=== PATIENT | female | born 1930 ===

== ENCOUNTER 2016-12-19 09:59 | Observation (INO) | payer MEDICARE, BC ==
[2016-12-18 08:49] VITALS: BMI 18.3
[2016-12-19 10:52] LABS: INR 1.3
[2016-12-19 10:53] LABS: POTASSIUM 3.9 mmol/L (3.6-5.2)
[2016-12-19 10:56] LABS: CALCIUM 8.6 mg/dl (8.6-10.4)
[2016-12-19] MEDS ORDERED: Iodixanol 320 MG/ML 200 ML BOTTLE IV ONE (11:17)
[2016-12-19] MEDS ORDERED: Dexmedetomidine Hydrochloride 100 mcg/ml (2ML) ONE ×2 (11:39→11:47)
[2016-12-19] MEDS ORDERED: Midazolam 2 MG/2 ML VIAL ONE ×2 (11:47)
[2016-12-19] MEDS ORDERED: Lidocaine 2% Inj (20ml) ONE (11:53)
--- NOTE | 2016-12-19 13:00 | RAD ---
HISTORY: PRE OP ANGIOGRAM WITH ANESTHESIA 12/19/16 COMPARISON: 02/09/2016. TECHNIQUE: Chest PA and lateral FINDINGS: LUNGS: Right lower lobe infiltrates. Questionable right lower lobe mass. Similar findings identified on the prior study 02/09/2016. PLEURA: Right pleural effusion, chronic finding. CARDIOVASCULAR: Cardiomegaly. No evidence of acute, significant cardiovascular disease. Venous access catheter in stable, satisfactory position. OSSEOUS STRUCTURES: No significant abnormalities. VISUALIZED UPPER ABDOMEN: Normal. OTHER FINDINGS: None. IMPRESSION: No significant interval change compared to the prior examination(s).
[2016-12-19] MEDS ORDERED: ePHEDrine 50 mg/ml Inj ONE (13:51)
--- NOTE | 2016-12-19 15:04 | PCM.SURG1 ---
Surgeon's Initial Post Op Note - Surgeon's Notes Surgeon: magy Oil Well Perforator Operator: 0 Type of Anesthesia: IV Sedation Anesthesia Administered By: tomas Pre-Operative Diagnosis: gamgrene right foot Operative Findings: severe tibial disease bilaterally. right posterior tibial occluded proximally. anterior tibial multiple stenoses. peroneal not seen. no named vessel in foot on either side. left PT only vessel seen of tibial vessels Post-Operative Diagnosis: same Operation Performed: aortofemoral angiogram vis left groin. selective catherization of right femoral artery. balloon angioplasty to anterior tibial and posterior tibial. EDI 3x33 to proximal Tibial peroneal/ post tibial trunk. perclose left groin Specimen/Specimens Removed: 0 Estimated Blood Loss: EBL {In ML}: 25 Date of Surgery/Procedure: 12/19/16 Time of Surgery/Procedure: 15:07
--- NOTE | 2016-12-19 15:50 | VAS ---
DATE: 12/19/2016 PREOPERATIVE DIAGNOSIS: Gangrene of right foot/both feet. PROCEDURE CARRIED OUT: Aortofemoral angiogram via left groin with selective catheterization of right popliteal artery, balloon angioplasty of anterior tibial and posterior tibial artery, drug-eluting s tent to the proximal portion of the tibioperoneal trunk, a 3 x 33 stent. SURGEON: Rao Clark MD. FACETOR: None. ANESTHESIOLOGIST: INDICATIONS: The patient is an 86-year-old woman with severe rest pain and gangrene of the great toe , dependent rubor, severe on the left foot. OPERATIVE FINDINGS: There were technical problems related to machinery at the initiation of the proc edure with the main C-arm was unable to be used. Because of this, we had to import the C-arm from e operating room to carry out the angiogram this way. This occurred after the initial puncture. At this point, it was inappropriate to abandon the procedure. FINDINGS: The visualized portion of the aorta and iliac arteries were free of significant occlusive disease. Both profunda, common femoral and the proximal portion of the superficial femoral arteries and popliteal arteries bilaterally are free of significant occlusive disease. On the right side, the re was severe disease of the tibioperoneal trunk with reconstitution of a segment of the posterior ti bial artery distally, but no name vessel going into the foot. The anterior tibial was occluded and s tenotic in multiple segments. The peroneal was not visualized on the right side. On the left side, it appeared that the posterior tibial artery was the major vessel going into the foot. The other ves sels were not visualized. In neither foot did we see good visualization of the pedal vessels, despite concentrated injections l ooking for this. Subsequent to the performance of diagnostic arteriogram, a stiff-angled guidewire was advanced over t he aortic bifurcation. A 7-[place]er sheath positioned in the proximal portion of the superficial femor al artery. We had difficulty advancing the Glidewire due to the patient's anatomy, but we were able to securely place and position in the proximal to mid portion of the superficial femoral artery with the use of an Amplatz wire, etc. At this point, we took multiple overlapping films and we were able to cross anterior into the posterior tibial artery down to the level of the ankle. We then deployed a 2 x 2.5 long balloon with excellent cosmetic results, but we were unable to get into one of the [facility] ed vessels, though there were no named vessels in the foot, we were unable to reconstitute a pedal ar ch in the foot. We then approached the anterior tibial artery and similarly we were able to cross thi s with the use of a variety of wires and devices and after we had done that, we then took subsequent films and it was seen that the proximal portion of the tibioperoneal trunk where we had ballooned thi s initially had restenosed. Because of this, we deployed a 3 x 33 drug-eluting stent in this locatio n with excellent cosmetic results. At this point, we had excellent flow, we had brisk flow. We did not have visualization, however, of any named vessel in the foot and then we subsequently deployed a Perclose device in the left groin. OPERATION CARRIED OUT: Aortofemoral angiogram with selective catheterization of right femoral artery , balloon angioplasty of the anterior tibial and posterior tibial arteries, drug-eluting stent to the proximal portion of the tibioperoneal trunk, a 3 x 33 stent, Perclose closure left groin. Rao Clark Jr., MD cc:Denis Currie MD; Tam Deutsch DPM 56 TT: 12/19/2016 15:49:34 Confirmation # [id number] Dictation # [id number] prema
[2016-12-19] MEDS ORDERED: Oxycodone/Acetaminophen 5/325 mg Tab PO PRN (22:16)
--- NOTE | 2016-12-20 07:20 | CON ---
DATE: 12/19/2016 REQUESTED BY: Dr. Clark I am requested to see this 86-year-old [place] female known to us for several years, who underwent angioplasty with stent deployment in the right lower extremity due in impending gangrene in the right great toe. Initially, I saw this lady several weeks ago for followup, at which point she was complaining of some pain in the right great toe, the tip, and I advised the son who presents to the office periodically, to take her to see Dr. Deutsch for podiatry care. Subsequently after his evaluation, he referred her to Dr. Clark for vascular evaluation since Dr. Clark knew her from a previous encounter for AV shunt placed in the left arm. This triggered a subsequent event that was carefully evaluated by Dr. Clark and Dr. Deutsch, and after which she was scheduled to undergo today this iliofemoral angiogram with the deployment of the drug-eluting stent in the tibial perineal trunk. At this point in time she is resting comfortably in bed. She is awake and knows me, she was laughing. We talked about Ambien, etc. with the son, Lucio, at the bedside. Vital signs are stable. She appears in no distress whatsoever. However, both feet are kind of cold, which is the main problem because she had severe peripheral vascular disease, and we are trying to prevent any loss of limb. PAST MEDICAL HISTORY: Includes end-stage renal disease now for several years. She is under the care of Dr. Novak in [place], and she will probably need to be dialyzed here tomorrow. She goes to dialysis Mondays, Wednesdays, and Fridays. She also suffers from hypertensive heart disease, diabetes mellitus, congestive heart failure, peripheral vascular disease as mentioned above, and she had a stroke. Presently, in addition to the left AV shunt done by Dr. Clark, which is working, she also has a temporary inserted dialysis catheter in the right infraclavicular area. She has been taking multiple medications at home, however, recently they were stopped, which included amlodipine as well as losartan, because her blood pressure was well under control. She takes multiple medications for the chronic renal disease, which has been under good control. REVIEW OF SYSTEMS: She does not have any significant chest discomfort at rest, though, doing slightly walking in the house which is very limited as it obviously is for her chronic peripheral vascular disease, etc., etc. No nausea , vomiting, or diarrhea. She has been actually walking around with the use of a walker, etc. and doing some housework. They have sjsqlz-osj-qjfaw homemakers, except for weekends when the daughter from the [place] comes. Physical exam reveals an elderly oriental female, sleepy due to anesthesia, however, easily arousable and able to talk in short sentences. VITAL SIGNS: Totally stable at this point, with a blood pressure about 138/55, pulse rate is about 70 per minute, temperature is normal, O2 saturation in room air is 96. Main problem is that in both feet are kind of cold. They are getting pulse with the Doppler, but we are watching this situation very, very closely. No pain. HEAD, EARS, EYES, NOSE, AND THROAT: Unremarkable for age. There is a temporary hemodialysis catheter in the right infraclavicular area. LUNG FIELD: Difficult to auscultate because she is in bed right now and we cannot move her well, but anterior chest remains clear. NEUROLOGICAL EXAMINATION: Jugular veins are normal. Carotids are grossly normal. Heart sounds normal in intensity and regular. Systolic murmur which is chronic. ABDOMEN: Scaphoid. No gross organomegaly. CENTRAL NERVOUS SYSTEM EXAMINATION: She reacts appropriately, knows me well etc , etc. No focal deficit. Some tests done on preadmission testing were in acceptable range for her chronic condition. The basic metabolic profile looks quite well controlled, with hemodialysis. ASSESSMENT: Cerebrovascular accident, arteriosclerotic cardiovascular disease, peripheral vascular disease, diabetes, hypertension, chronic heart failure, systolic and diastolic, however controlled at the present time. PLAN: Will continue close surveillance. Some of her medications will be continued in the usual fashion. Will discuss the situation with Dr. Clark, perhaps, to see if it would be difficult for her to go home tomorrow if stable Perhaps she could have dialysis before going home. Denis Currie MD cc: Tam Deutsch DPM; Rao Clark Jr., MD 68 TT: 12/19/2016 20:32:20 Confirmation # [id number] Dictation # [id number] jn MTDD
--- NOTE | 2016-12-20 10:29 | CON ---
DATE: 12/20/2016 At the request of Dr. Clark, this is an 86-year-old [place] female. She was seen 2 weeks prior in my office with what appeared to be bilateral forefoot ischemia. The patient is a known dialysis pat ient. The patient was referred to Dr. Clark for vascular evaluation. Yesterday, Dr. Clark performed revascularization attempt on the right lower extremity. The right lower extremity, at this time, is warmer. Forefoot warmth is better. The patient still has progress payal gangrene of the right great toe. The patient will be discharged today. Followup in my office in 1 week. Local care was explained to the son. Pain management will also be suggested due to the ischemia of the right hallux. Potential amputation of the right hallux is a possibility in the near future. We will be following up at the [facility] this patient in the week coming. Tam Deutsch DPM cc: [id number] TT: 12/20/2016 10:28:03 Confirmation # [id number] Dictation # [id number] paula
[2016-12-20 11:33] LABS: BASO # 0.1 K/uL (0.0-0.2); BASO % 0.8 % (0.0-2.0); EOS % 0.6 % (0.0-4.0); LYMPH # 1.2 K/uL (1.0-4.3); MEAN CORPUSCULAR HEMOGLOBIN 34.8 pg (27.0-31.0); MEAN CORPUSCULAR HGB CONC 32.8 g/dL (33.0-37.0); MEAN PLATELET VOLUME 9.4 fL (7.2-11.7); MONO % 15.7 % (0.0-10.0); NRBC % 0.2 % (0.0-2.0); RED CELL DISTRIBUTION WIDTH 17.2 % (11.5-14.5); WHITE BLOOD COUNT 6.5 K/uL (4.8-10.8)
[2016-12-20 11:36] LABS: POTASSIUM 4.1 mmol/L (3.6-5.2)
[2016-12-20 11:38] LABS: ALB/GLOB RATIO 0.8 (1.0-2.1); BILIRUBIN,TOTAL 0.8 mg/dL (0.2-1.3); TOTAL PROTEIN 6.7 g/dL (6.3-8.3)
[2016-12-20 11:39] LABS: CALCIUM 8.1 mg/dl (8.6-10.4)
[2016-12-20 11:41] LABS: MEAN CELL VOLUME 106.2 fL (81.0-99.0)
[2016-12-20 12:23] VITALS: RESP 16
--- NOTE | 2016-12-20 12:39 | CP.PCM.PN ---
Subjective - Date & Time of Evaluation Date of Evaluation: 12/20/16 Time of Evaluation: 12:38 - Subjective Subjective: dw leg warm with excellent dopplers dc home plavix fu 1 week Objective - Vital Signs/Intake and Output Vital Signs (last 24 hours): Temp Pulse Resp BP Pulse Ox 98.9 F 80 16 117/58 L 96 12/20/16 11:15 12/20/16 11:15 12/20/16 11:15 12/20/16 12:00 12/20/16 11:15 - Medications Medications: Current Medications Amlodipine Besylate (Norvasc) 5 mg PO DAILY [facility] Last Admin: 12/20/16 10:17 Dose: 5 mg Calcium Acetate (Phoslo) 667 mg PO TIDCC [facility] Last Admin: 12/20/16 08:00 Dose: 667 mg Cinacalcet (Sensipar) 30 mg PO DAILY [facility] Last Admin: 12/20/16 10:17 Dose: 30 mg Clopidogrel Bisulfate (Plavix) 75 mg PO DAILY [facility] Last Admin: 12/20/16 10:16 Dose: 75 mg Losartan Potassium (Cozaar) 100 mg PO DAILY [facility] Last Admin: 12/20/16 10:17 Dose: 100 mg Oxycodone/Acetaminophen (Percocet 5/325 Mg Tab) 1 tab PO Q6H PRN PRN Reason: Pain, moderate (4-7) Stop: 12/22/16 22:17 Last Admin: 12/20/16 10:21 Dose: 1 tab Zolpidem Tartrate (Ambien) 5 mg PO HS [facility] Last Admin: 12/19/16 22:15 Dose: Not Given - Labs Labs: 12/20/16 11:23 12/20/16 11:23 PT 14.9 SECONDS (9.7-12.2) H 12/19/16 10:38 INR 1.3 12/19/16 10:38 APTT 37 SECONDS (21-34) H 12/19/16 10:38
[2016-12-20 14:56] VITALS: BP 105/56; PULSE 68; TEMP 98; O2SAT 97
--- NOTE | 2016-12-20 15:45 | PN ---
DATE: 12/20/2016 ROOM: 662 A Went to her room, but she was in dialysis. However, then her son, Rubi, which I know for years, was w aiting for her. He told me that she appeared very happy this morning and spirits were good and she i s undergoing dialysis and going home later on this afternoon or this evening. I called earlier this morning and spoke with Dr. Clark to touch bases with him. He actually was t here in the hospital and told me that the right leg appeared to be much, much better and warmer and t he foot was warm, the right foot. As well, actually the left foot was also a little warmer than yest erday. The right leg was the one that Dr. Clark performed the angioplasty and stent deployment. I went to see the patient in the dialysis, actually had just completed and she was in very good spiri ts, laughing, saw me. We talked about it a little bit. She speaks only Ethiopian but understands Engl marion very, very well and I told her that she was going home this afternoon, etc. and she was very happ y. No complaints were offered. There was no obvious nausea or vomiting or diarrhea and when I asked her about any shortness of breat h or chest pain, she denied it. REVIEW OF SYSTEMS: Otherwise negative. PHYSICAL EXAMINATION: GENERAL: Alert, oriented, in no distress whatsoever. She appeared quite happy. VITAL SIGNS: Totally stable. Blood pressure ranging from 105-114 systolic. Respiratory rate unrema rkable. She is afebrile at 98 degrees Fahrenheit orally. The respiratory rate is normal, unlabored at 16 per minute. HEAD, EARS, NOSE AND THROAT: Remains unremarkable for her age. LUNGS: Anterior lung perry are clear. I was unable to carefully and well to the posterior chest. HEART: Sounds normal in intensity and regular with systolic murmur as usual. ABDOMEN: No localized tenderness. CENTRAL NERVOUS SYSTEM: Alert, oriented, no deficit. LOWER EXTREMITIES: The right leg, right foot is warm, good normal temperature as compared to yesterd ay, it was quite cold and the color actually is even better. The left foot even though nothing was d one to the left leg in terms of intervention, the foot is also a little warmer. The AV shunt that she has in the left arm has a big ecchymotic hematoma there. This was not used. A ctually, I was there in the dialysis unit and the nurses told me that they did not use the shunt. Th tasia used the dialysis catheter that she has in the right infraclavicular area and that catheter is miguel y well kept and very, very clean. I had a long conversation with her son, Rubi, and the patient does not like to have dialysis via the A V shunt because it hurts, it has hematomas, etc. and she prefers the dialysis catheter to be used. W e had a big long conversation that this catheter cannot remain there forever and ever. ASSESSMENT: Cardiologically stable. Going home later on this evening or later on this afternoon. I had a long conversation with her son, Rubi, he is going to bring her to the office next week before he goes on a trip to [facility] for about a week or 10 days. I mentioned that the x-ray again showed ginger e effusion in the right hemithorax, right pleural effusion and nothing has changed since previous x-r ay of 6, 7, 8 months ago, but we would like to follow this up and most likely it is related to end-st age renal disease, heart failure, etc. but we need to see her next week. He understood that and he i s bringing his mother next week to the office. In the meantime, to be closely followed up by Dr. Clark and Dr. Deutsch. As a matter of fact, the son mentioned Dr. Deutsch was here today to see her and he was encouraged by what he saw. Denis Currie MD cc: [id number] TT: 12/20/2016 15:45:08 Confirmation # [id number] Dictation # [id number] sn
--- NOTE | 2016-12-20 18:47 | PCM.HF ---
Heart Failure Core Measure - Heart Failure Left Ventricular Function to be assessed after discharge: Yes MARIE Inhibitor Prescribed: No Contraindication/Reason for not providing: on arb Beta-Gary Prescribed: None Contraindication/Reason for not providing: LOW HR Angiotensin II Receptor Gary Prescribed: Yes AnticoagulationTherapy for Atrial Fibrillation/Atrialflutter: No Contraindication/Reason for not providing: no afib Aldosterone Antagonist Prescribed: No Contraindication/Reason for not providing: ckd Hydralazine Nitrate Prescribed: No Contraindication/Reason for not providing: ckd Implantable Cardioverter Defibrillator Therapy: No Contraindication/Reason for not providing: WILL BE EVALUATED BY CARDIOLOGY Cardiac Resynchronization Therapy Prescribed: No Contraindication/Reason for not providing: WILL BE EVALUATED BY CARDIOLOGY - Follow up Will be discharged to: Home Follow Up Date (must be within 7 days from discharge): 12/22/16 Follow Up Time: 09:00
--- NOTE | 2016-12-20 23:31 | CP.PCM.CON ---
History of Present Illness - History of Present Illness History of Present Illness: REASONS FOR CONSULT : ESRD IN NEED FOR HD NOW S/P PERIPHERAL ANGIOGRAM / PLASTY DONE BY DR STANLEY ,, NEEDS HD POST OP PT IS AN 86 YOF WHO WAS ADMITTED BY DR STANLEY FOR SEVER PAD .. RECIEVED PERIPHERAL ANGIOGRAM AND ANGIOPLASTY SEEN ON RENAL F/U AND HD .. FOR D/C POST HD PT IS ESRD ON HD W .. PT IS DR MCGUIRE'S WHOM I AM COVERING ALL EMR REVIEWED .. LABS REVIEWED HD ORDERS GIVEN TO HD RN AND D/W HER Past Patient History - Infectious Disease Hx of Infectious Diseases: None - Tetanus Immunizations Tetanus Immunization: Unknown - Past Medical History & Family History Past Medical History?: Yes - Past Social History Smoking Status: Never Smoked - CARDIAC Hx Cardiac Disorders: Yes Hx Hypercholesterolemia: Yes Hx Hypertension: Yes Hx Peripheral Edema: Yes Hx Peripheral Vascular Disease: Yes - PULMONARY Hx Respiratory Disorders: Yes Hx Sleep Apnea: Yes Hx Tuberculosis: No - NEUROLOGICAL Hx Neurological Disorder: Yes HX Cerebrovascular Accident: Yes ("MILD STROKE 1998") Hx Transient Ischemic Attacks (TIA): Yes (in the 1970s) - HEENT Hx HEENT Problems: Yes Hx Blind: No Hx Cataracts: Yes 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.) - RENAL Hx Chronic Kidney Disease: Yes Hx Dialysis: Yes Type of Dialysis Access: LEFT ARM FISTULA Date of Last Dialysis Treatment: 12/18/16 Hx Renal Failure: Yes - ENDOCRINE/METABOLIC Hx Endocrine Disorders: No Hx Diabetes Mellitus Type 2: No (NO LONGER) - HEMATOLOGICAL/ONCOLOGICAL Hx Blood Disorders: Yes Hx Anemia: Yes Hx Blood Transfusions: Yes Hx Blood Transfusion Reaction: No - INTEGUMENTARY Hx Dermatological Problems: No - MUSCULOSKELETAL/RHEUMATOLOGICAL Hx Musculoskeletal Disorders: Yes Hx Degenerative Joint Disease: Yes Hx Falls: Yes - GASTROINTESTINAL Hx Gastrointestinal Disorders: Yes (HX INTESTINAL OBSTUCTION NO SX) Hx Bowel Surgery: Yes (INTESTINAL OBSTRUCTION) - GENITOURINARY/GYNECOLOGICAL Hx Genitourinary Disorders: No - PSYCHIATRIC Hx Psychophysiologic Disorder: No Hx Substance Use: No - SURGICAL HISTORY Hx Surgeries: Yes Hx Cataract Extraction: Yes Hx Hysterectomy: Yes Hx Open Reduction Internal Fixation: Yes (R HIP) Hx Orthopedic Surgery: Yes (Right hip replacement) Hx Vascular Access Device: Yes (for dialysis) Other/Comment: PERMA CATH RIGHT - ANESTHESIA Hx Anesthesia: Yes Hx Anesthesia Reactions: No Hx Malignant Hyperthermia: No Has any member of the family had a problem w/ anesthesia?: No Meds Allergies/Adverse Reactions: Allergies Allergy/AdvReac Type Severity Reaction Status Date / Time No Known Allergies Allergy Verified 12/30/15 16:25 Results - Vital Signs Recent Vital Signs: Last Vital Signs Temp 98 F 12/20/16 14:15 Pulse 68 12/20/16 14:15 Resp 16 12/20/16 14:15 BP 105/56 L 12/20/16 14:15 Pulse Ox 97 12/20/16 14:15 - Labs Result Diagrams: 12/20/16 11:23 12/20/16 11:23 Labs: Laboratory Results - last 24 hr 12/20/16 11:23 WBC 6.5 RBC 2.73 L Hgb 9.5 L Hct 29.0 L MCV 106.2 H D MCH 34.8 H MCHC 32.8 L RDW 17.2 H Plt Count 126 L MPV 9.4 Neut % (Auto) 64.9 Lymph % (Auto) 18.0 L [place] % (Auto) 15.7 H Eos % (Auto) 0.6 Baso % (Auto) 0.8 Neut # 4.2 Lymph # 1.2 [place] # 1.0 H Eos # 0.0 Baso # 0.1 Sodium 135 Potassium 4.1 Chloride 92 L Carbon Dioxide 27 Anion Gap 20 BUN 37 H Creatinine 4.6 H Est GFR ( Amer) 11 Est GFR (Non-Af Amer) 9 Random Glucose 76 Calcium 8.1 L Total Bilirubin 0.8 AST 26 ALT 20 Alkaline Phosphatase 102 Total Protein 6.7 Albumin 3.0 L Globulin 3.7 Albumin/Globulin Ratio 0.8 L Assessment & Plan - Date & Time Date: 12/20/16 Time: 13:00
--- NOTE | 2016-12-22 16:15 | RAD ---
PROCEDURE: Fluoroscopy up to 1 hr. HISTORY: ANGIOGRAM LOW EXT COMPARISON: None TECHNIQUE: Standard protocol for this study/examination. FINDINGS: Total fluoroscopic time (continuous mode) utilized during the procedure: 24.6 minutes fluoroscopy time IMPRESSION: Less than 1 hr fluoroscopic time utilized during performance of the procedure.
== END 2016-12-20 15:40 | disposition home or self-care (01) ==
LOC: C.SPRAD 09:59 → C.9S 15:23 → C.6T 17:23
PROVIDERS: ADMIT Surgery Vascular Surgery; ATTEND Surgery Vascular Surgery
DX: E11.52 Type 2 diabetes mellitus with diabetic peripheral angiopathy with gangrene (principal); Z79.4 Long term (current) use of insulin; E11.22 Type 2 diabetes mellitus with diabetic chronic kidney disease; E78.00 Pure hypercholesterolemia, unspecified; H54.42 Blindness, left eye, normal vision right eye; I13.2 Hypertensive heart and chronic kidney disease with heart failure and with stage 5 chronic kidney disease, or end stage renal disease; N18.6 End stage renal disease; I50.42 Chronic combined systolic (congestive) and diastolic (congestive) heart failure; Z99.2 Dependence on renal dialysis; Z68.1 Body mass index [BMI] 19.9 or less, adult; I25.10 Atherosclerotic heart disease of native coronary artery without angina pectoris; Z86.73 Personal history of transient ischemic attack (TIA), and cerebral infarction without residual deficits; G47.30 Sleep apnea, unspecified
CPT/HCPCS: 36247; 36415; 37228; 37231; 71020; 75625; 75716; 75774; 80048; 80053; 85025; 85610; 85730; C1725; C1760; C1769; C1874; C1887; C1894; G0257; G0378; J1644; J2250; J3010; Q9966

== ENCOUNTER 2017-02-21 16:37 | Inpatient (IN) | payer MEDICARE, BC ==
[2017-02-21 16:38] VITALS: BMI 18.3
[2017-02-21] MEDS ORDERED: HYDROmorphone 1 mg/ml ISec ONE (18:03)
[2017-02-21] MEDS ORDERED: HYDROmorphone 1 mg/ml ISec IVP STA (18:12)
--- NOTE | 2017-02-21 19:19 | C.PDOC ---
History Of Present Illness 86 year old female was brought to the ED by her family after seeing Dr. Kamara today, for evaluation of possible cellulitis as per Dr. Kamara's suggestion. She presents with severe swelling, pain, and redness to both legs from the knees down. Patient's records show an extensive past medical history that includes HTN , anemia, peripheral edema, hyprecholesterolemia, diabetes, end stage renal disease, chronic kidney disease, and sleep apnea. 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 Patient's condition is being followed by multiple vascular surgeons, experimental psychologist, and her PMD Dr. Currie. She denies any fever or chills. Time Seen by Provider: 02/21/17 17:35 Chief Complaint (Nursing): Abnormal Skin Integrity History Per: Patient, Family History/Exam Limitations: no limitations Onset/Duration Of Symptoms: Other (long standing peripheral vascular disease ) Current Symptoms Are (Timing): Still Present Quality Of Symptoms: Painful Recent travel outside of the [place]: No Additional History Per: Prior Records Past Medical History Reviewed: Historical Data, Nursing Documentation, Vital Signs Vital Signs: Last Vital Signs Temp 98.5 F 02/21/17 16:43 Pulse 67 02/21/17 19:23 Resp 14 02/21/17 19:23 BP 156/65 H 02/21/17 19:23 Pulse Ox 94 L 02/21/17 19:49 - Medical History PMH: Anemia, Diabetes, HTN, Hypercholesterolemia, Peripheral Edema, End Stage Renal Disease, Chronic Kidney Disease, Sleep Apnea, TIA (in the 1970s) - [facility] Procedures FLUOROSCOPY OF SUP VENA CAVA USING L OSM CONTRAST, GUIDANCE (06/17/15) INFLUENZA VACCINATION (07/30/13) INSERTION OF INFUSION DEV INTO SUP VENA CAVA, PERC APPROACH (06/17/15) PACKED CELL TRANSFUSION (07/30/13) PARTIAL HIP REPLACEMENT (07/30/13) PERFORMANCE OF URINARY FILTRATION, MULTIPLE (06/17/15) REMOVAL OF INFUSION DEVICE FROM UPPER VEIN, PERC APPROACH (06/17/15) TRANSFUSE NONAUT RED BLOOD CELLS IN PERIPH VEIN, PERC (06/17/15) ULTRASONOGRAPHY OF SUPERIOR VENA CAVA, GUIDANCE (06/17/15) VACCINATION NEC (07/30/13) Family History: States: Unknown Family Hx - Social History Hx Tobacco Use: No Hx Alcohol Use: No Hx Substance Use: No - Immunization History Hx Tetanus Toxoid Vaccination: (unk) Hx Influenza Vaccination: Yes Hx Pneumococcal Vaccination: Yes Review Of Systems Constitutional: Negative for: Fever, Chills, Sweats Cardiovascular: Negative for: Chest Pain, Palpitations Respiratory: Negative for: Cough, Shortness of Breath Gastrointestinal: Negative for: Nausea, Vomiting, Abdominal Pain, Diarrhea Musculoskeletal: Positive for: Leg Pain (long standing peripheral vascular disease with arterial occlusions and gangrene of both great toes ) Skin: Positive for: Other (severe swelling, pain, and redness to both legs from the knee down ) Neurological: Negative for: Headache Physical Exam - Physical Exam Appears: Chronically Ill Skin: Warm, Dry, Other (toes are cool; severe redness of both legs from the knees down ) Head: Atraumatic Oral Mucosa: Moist Neck: Supple Chest: Symmetrical, No Deformity Cardiovascular: Rhythm Regular Respiratory: No Rales, No Rhonchi, No Stridor, No Wheezing Extremity: No Normal ROM (decreased ROM due to pain worsening when legs elevated ), Capillary Refill (delayed capillary refill in both legs ), Swelling (severe swelling to both legs from the knees down due to vascular insuffiency ), Other ( legs beginning to weep, dry black gangrene in both great toes.) Pulses: Left Dorsalis Pedis: Absent, Right Dorsalis Pedis: Absent Neurological/Psych: Oriented x3 Gait: Other (patient having difficulty walking) ED Course And Treatment O2 Sat by Pulse Oximetry: 94 - Physician Consult Information Time Consulting Physician Contacted: 17:00 (Dr. Currie came to the ED and spoke to the patient and her family and stayed for approximately 2 and a half hours to discuss with the family. ) Physician Contacted: Denis Currie Outcome Of Conversation: Patient's PMD, Dr. Currie, determined symptoms are not an acute problem. Patient is extremely chronic and has an appointment in March to see Vascular Surgeon at [facility] therefore debating admission or waiting for the appointment. After consulting with the family as well, it was decided to admit the patient for IV antibiotics, vascular surgery and ID consultation. Disposition - Disposition Disposition: HOSPITALIZED Disposition Time: 19:53 Condition: STABLE - POA Present On Arrival: None - Clinical Impression Clinical Impression: ESRD (end stage renal disease), Arterial vascular disease, Bilateral cellulitis of lower leg, Toe gangrene - Scribe Statement The provider has reviewed the documentation as recorded by the Scribtheresa Kang All medical record entries made by the Jenniferibtheresa were at my direction and personally dictated by me. I have reviewed the chart and agree that the record accurately reflects my personal performance of the history, physical exam, medical decision making, and the department course for this patient. I have also personally directed, reviewed, and agree with the discharge instructions and disposition.
[2017-02-21] MEDS ORDERED: Vancomycin 1 GM 1 GM/250 ML BAG IV ONE (20:00)
[2017-02-21 20:12] LABS: BASO % 0.2 % (0.0-2.0); EOS % 0.3 % (0.0-4.0); HEMATOCRIT 31.1 % (34.0-47.0); LYMPH # 1.4 K/uL (1.0-4.3); LYMPH % 8.5 % (20.0-40.0); MEAN CORPUSCULAR HGB CONC 31.4 g/dL (33.0-37.0); MONO # 1.1 K/uL (0.0-0.8); MONO % 6.8 % (0.0-10.0); NRBC % 0.1 % (0.0-2.0); PLATELET COUNT 217 K/uL (130-400); RED CELL DISTRIBUTION WIDTH 18.6 % (11.5-14.5)
[2017-02-21 20:15] LABS: MEAN CELL VOLUME 111.4 fL (81.0-99.0)
[2017-02-21 20:39] LABS: POTASSIUM 5.1 mmol/L (3.6-5.2)
[2017-02-21 20:42] LABS: ALB/GLOB RATIO 0.7 (1.0-2.1); CALCIUM 8.4 mg/dl (8.6-10.4); TOTAL PROTEIN 7.1 g/dL (6.3-8.3)
[2017-02-21 21:04] LABS: BASOPHIL 1 % (0-2); NEUTROPHIL 81 % (50-75); TOTAL CELLS COUNTED 100
[2017-02-21] MEDS ORDERED: Vancomycin 1 GM 1 GM/250 ML BAG IVPB ONE (21:22)
[2017-02-22] MEDS: HYDROmorphone 1 mg/ml ISec IVP PRN ×2 (00:50→11:23)
--- NOTE | 2017-02-22 06:36 | HP ---
CHIEF COMPLAINT: Pain, redness and gangrene in both feet. HISTORY OF PRESENT ILLNESS: The patient is an 86-year-old on paper, however, she is 89 for real by . [place] female well known to us for many years, suffering from gangrene of both feet, the great toes for several weeks to months , who has been under the care of the vascular surgeon and company laundry worker, etc. for quite some time though had refused and underwent stent deployment by Dr. Clark several months back in the right leg to try to improve the circulation to the right foot. In spite of this, the big toe has continued to deteriorate and had become gangrenous for several actually almost a month and a half. The family decided to get a second opinion in [place] and she visited and is under the care of a company laundry worker there as well as vascular surgeon and had been cleaning and dressing the right foot as well as the left great toe that became also gangrenous several weeks back. I have been in contact with the family, Maribel, as well as the son, Lucio and there is a daughter in [place], [facility], who comes periodically. The daughter from [place] came over the weekend and took her today to go to [facility] because of increasing pain. She called the hospital to go to the wound care center and was seen there by Dr. Kamara, the company laundry worker, who immediately suggested to be admitted because of severe cellulitis and gangrene. This was the first time I believe Dr. Kamara had seen her. She had been under the care before of Dr. Willi Mckenna and after that a company laundry worker in [facility]. She came to the Emergency Room and she was immediately evaluated. I was totally unaware of these new changes since the daughter and son here wanted to prevent any kind of hospitalization, etc. that the mother has refused any surgery after the deployment of stents to the right leg by Dr. Clark. I spent many hours in the Emergency Room talking to Maribel as well as down on the phone with the other daughter who is a dentist in [place] and final decision was to admit her for antibiotics for the cellulitis but the main problem is the gangrene of both lower extremities and needs surgical intervention; however, the mother has refused that. PAST MEDICAL HISTORY: Includes diabetes, hypertension, heart failure, end- stage renal disease on hemodialysis 3 [address] week [address] Novak in [place]. She also had a cerebral infarction years back with no sequelae. In so far as this severe peripheral vascular disease and gangrene of both great toes for several weeks to months now, the daughter told me that they had an appointment, a visit, sometime in March, early next month for some potential attempt at revascularization of distal lower extremities, which looks very doubtful at this point. MEDICATIONS: She has been taking multiple medications, which include losartan, amlodipine, Ambien for sleep as well as renal vitamins, Sensipar, PhosLo, etc. All under the care of Dr. Novak. REVIEW OF SYSTEMS: Increasing pain and swelling in both feet now since yesterday, although the pain actually has been chronic for months, but the daughter from [place] she was overwhelmed by the situation that she has not seen in months. The rest of the review of systems is otherwise negative. PHYSICAL EXAMINATION: GENERAL: Alert and oriented, knew me very well when I got to the Emergency Room and I saw her. Obviously, conversing the translation from the daughter. VITAL SIGNS: Relatively stable. Blood pressure in the range of about 150/80- 85. Continuous cardiac monitoring showing sinus rhythm. Respiratory rate is unremarkable. She appeared clinically afebrile. The main findings are related to the lower extremities with worsening gangrenous changes in both feet that was mainly to the great toes both and there is a foul smelling odor that is new. I saw her several weeks ago in the office and even though the feet were already gangrenous, there was no foul smelling odor at that time. CARDIOPULMONARY: The jugular vein is not distended. She needs dialysis today. LUNGS: With decreased breath sounds in the right base which is chronic due to some effusion. CARDIOVASCULAR: Heart sounds present. Regular and a systolic murmur grade I-II /, which is also chronic. ABDOMEN: Soft, no gross organomegaly. Even though she has an AV shunt in the left arm, they do not use it that much because she refuses to have dialysis via the AV shunt. They mainly using all the time jugular external catheter that she had implanted over a year and half ago or so. CENTRAL NERVOUS SYSTEM: Alert, oriented, no apparent deficits. Laboratory was pending at the point when I had a long conversation with the family as well as with the Emergency Room physician. PLAN: Admit her to the regular medical floor to continue antibiotics in the form of vancomycin and Rocephin, have dialysis. Continue wound care and the family would like to see if there is improvement and then will take her to the vascular surgeon in [place] at [facility] sometime next week. At this point in time, they do not want to proceed with any surgery intervention, if possible. Denis Currie MD cc: 68 TT: 02/22/2017 01:28:14 02/22/2017 05:35:24 NATALIA
--- NOTE | 2017-02-22 09:19 | CP.PCM.PN ---
Objective - Vital Signs/Intake and Output Vital Signs (last 24 hours): Temp Pulse Resp BP Pulse Ox 97.4 F L 62 20 161/59 H 97 02/22/17 07:34 02/22/17 07:34 02/22/17 07:34 02/22/17 07:34 02/22/17 07:34 - Medications Medications: Current Medications Calcium Acetate (Phoslo) 667 mg PO DAILY [facility] Clopidogrel Bisulfate (Plavix) 75 mg PO DAILY [facility] Heparin Sodium (Porcine) (Heparin) 5,000 units SC Q12 [facility] Hydromorphone HCl (Dilaudid) 1 mg IVP Q4H PRN PRN Reason: Pain, severe (8-10) Last Admin: 02/22/17 00:50 Dose: 1 mg Pantoprazole Sodium (Protonix Ec Tab) 40 mg PO DAILY [facility] Vitamin B Complex/Vit C/Folic Acid (Nephro-Nandini) 1 tab PO DAILY [facility] Zolpidem Tartrate (Ambien) 5 mg PO HS [facility] - Labs Labs: 02/21/17 20:00 02/21/17 20:24
[2017-02-22] MEDS: Multivitamin Vitamin B Complex (Nephro-Vite) Tab PO SCH (10:39)
[2017-02-22] MEDS: Pantoprazole 40 mg EC Tab PO SCH (10:40)
--- NOTE | 2017-02-22 11:45 | CP.PCM.CON ---
History of Present Illness - History of Present Illness History of Present Illness: Patient is an 86 y/o female seen bedside with Dr. Kamara regarding B/L hallux and second digit gangrene. Patient is seen in the dialysis unit receiving dialysis and unable to respond to questioning. She is seen in [facility] with no dressings on the LE. Review of Systems - Constitutional Constitutional: As Per HPI Past Patient History - Infectious Disease Hx of Infectious Diseases: None - Tetanus Immunizations Tetanus Immunization: Unknown - Past Medical History & Family History Past Medical History?: Yes - Past Social History Smoking Status: Never Smoked - CARDIAC Hx Cardiac Disorders: Yes Hx Hypercholesterolemia: Yes Hx Hypertension: Yes Hx Peripheral Edema: Yes - PULMONARY Hx Respiratory Disorders: Yes Hx Sleep Apnea: Yes - NEUROLOGICAL HX Cerebrovascular Accident: Yes (1998 mild stroke) Hx Transient Ischemic Attacks (TIA): Yes (in the 1970s) - HEENT Hx HEENT Problems: Yes Hx Blind: No Hx Cataracts: Yes 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.) - RENAL Date of Last Dialysis Treatment: 02/19/17 - ENDOCRINE/METABOLIC Hx Endocrine Disorders: Yes Hx Diabetes Mellitus Type 2: Yes - HEMATOLOGICAL/ONCOLOGICAL Hx Blood Disorders: Yes Hx Anemia: Yes - INTEGUMENTARY Hx Dermatological Problems: No - MUSCULOSKELETAL/RHEUMATOLOGICAL Hx Falls: No - GASTROINTESTINAL Hx Gastrointestinal Disorders: Yes (HX INTESTINAL OBSTUCTION NO SX) Hx Bowel Surgery: Yes (INTESTINAL OBSTRUCTION) - GENITOURINARY/GYNECOLOGICAL Hx Genitourinary Disorders: No - PSYCHIATRIC Hx Substance Use: No - SURGICAL HISTORY Hx Surgeries: Yes Hx Arteriovenous Shunt: Yes (06/17/15) Hx Cataract Extraction: Yes Hx Hysterectomy: Yes Hx Open Reduction Internal Fixation: Yes (R HIP) Hx Orthopedic Surgery: Yes (Right hip replacement) Hx Vascular Surgery: Yes Hx Vascular Access Device: Yes (for dialysis) Other/Comment: PERMA CATH RIGHT - ANESTHESIA Hx Anesthesia: Yes Hx Anesthesia Reactions: No Hx Malignant Hyperthermia: No Has any member of the family had a problem w/ anesthesia?: No Meds Allergies/Adverse Reactions: Allergies Allergy/AdvReac Type Severity Reaction Status Date / Time No Known Allergies Allergy Verified 02/21/17 16:49 - Medications Medications: Current Medications Calcium Acetate (Phoslo) 667 mg PO DAILY [facility] Last Admin: 02/22/17 10:40 Dose: Not Given Clopidogrel Bisulfate (Plavix) 75 mg PO DAILY [facility] Last Admin: 02/22/17 10:40 Dose: Not Given Heparin Sodium (Porcine) (Heparin) 5,000 units SC Q12 [facility] Last Admin: 02/22/17 10:39 Dose: Not Given Hydromorphone HCl (Dilaudid) 1 mg IVP Q4H PRN PRN Reason: Pain, severe (8-10) Last Admin: 02/22/17 11:23 Dose: 1 mg Pantoprazole Sodium (Protonix Ec Tab) 40 mg PO DAILY [facility] Last Admin: 02/22/17 10:40 Dose: Not Given Vitamin B Complex/Vit C/Folic Acid (Nephro-Nandini) 1 tab PO DAILY [facility] Last Admin: 02/22/17 10:39 Dose: Not Given Zolpidem Tartrate (Ambien) 5 mg PO HS [facility] Physical Exam - Constitutional Appears: No Acute Distress - Extremities Exam Additional comments: LE exam: Derm: Dry gangrenous changes to hallux and second digit from distal tip to proximal phalanx, no drainage noted at this time, positive for malodor. Surrounding skin with erythema, and mild edema. Vascular: Dp and PT pulses non-palpable, CFT unable to assess at hallux and 2nd digit, >5sec at digits 3-5, temperature cool to touch. Neuro: unable to assess. MSK: Decreased ROM at digits. - Neurological Exam Additional comments: unable to assess Results - Vital Signs Recent Vital Signs: Last Vital Signs Temp 97.5 F L 02/22/17 10:00 Pulse 62 02/22/17 10:27 Resp 20 02/22/17 10:27 BP 163/71 H 02/22/17 11:30 Pulse Ox 96 02/22/17 10:00 - Labs Result Diagrams: 02/21/17 20:00 02/21/17 20:24 Labs: Laboratory Results - last 24 hr 02/21/17 02/21/17 20:00 20:24 WBC 16.0 H D RBC 2.79 L Hgb 9.8 L Hct 31.1 L MCV 111.4 H D MCH 35.0 H MCHC 31.4 L RDW 18.6 H Plt Count 217 MPV 9.0 Neut % (Auto) 84.2 H Lymph % (Auto) 8.5 L [place] % (Auto) 6.8 Eos % (Auto) 0.3 Baso % (Auto) 0.2 Neut # 13.5 H Lymph # 1.4 [place] # 1.1 H Eos # 0.0 Baso # 0.0 Neutrophils % (Manual) 81 H Band Neutrophils % 1 Lymphocytes % (Manual) 7 L Monocytes % (Manual) 10 Basophils % (Manual) 1 Platelet Estimate Normal Hypochromasia (manual) Slight Poikilocytosis (manual Slight Anisocytosis (manual) Slight Microcytosis (manual) Slight Macrocytosis (manual) Slight Sodium 137 Potassium 5.1 Chloride 97 L Carbon Dioxide 27 Anion Gap 18 BUN 53 H Creatinine 4.6 H Est GFR ( Amer) 11 Est GFR (Non-Af Amer) 9 Random Glucose 101 Calcium 8.4 L Total Bilirubin 1.0 AST 56 H D ALT 18 Alkaline Phosphatase 149 H D Total Protein 7.1 Albumin 2.9 L Globulin 4.2 H Albumin/Globulin Ratio 0.7 L Assessment & Plan - Assessment and Plan (Free Text) Assessment: 86 y/o female with B/L foot hallux and 2nd digit gangrene secondary to severe vascular disease. Plan: evaluated and treated with Dr. Kamara. Areas dressed with betadine, DSD, kerlix. ordered heel offloading boots to be worn at all times will await vascular intervention before any podiatric procedure. will continue to follow while in hospital
[2017-02-22] MEDS: Oxycodone/Acetaminophen 5/325 mg Tab PO PRN (14:21)
--- NOTE | 2017-02-22 18:49 | CP.PCM.CON ---
History of Present Illness - History of Present Illness History of Present Illness: REASONS FOR CONSULT : ESRD ON HD M W F ANEMIA OF CKD MULTIPLE CO MORBIDITIES ALL EMR REVIEWED .. CURRENT CHART REVIEWED .. PT WAS SEEN ON HD AND EXAMINED HD ORDERS GIVEN AND D/W HD - RN CASE D/W THE DAUGHTER AT LENGTH 86 year old female was brought to the ED by her family after seeing Dr. Kamara today, for evaluation of possible cellulitis as per Dr. Kamara's suggestion. She presents with severe swelling, pain, and redness to both legs from the knees down. Patient's records show an extensive past medical history that includes HTN , anemia, peripheral edema, hyprecholesterolemia, diabetes, end stage renal disease, chronic kidney disease, and sleep apnea. 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 Patient's condition is being followed by multiple vascular surgeons, doctor of pharmacy, and her PMD Dr. Currie. She denies any fever or chills. Time Seen by Provider: 02/21/17 17:35 Chief Complaint (Nursing): Abnormal Skin Integrity History Per: Patient, Family History/Exam Limitations: no limitations Onset/Duration Of Symptoms: Other (long standing peripheral vascular disease ) Current Symptoms Are (Timing): Still Present Quality Of Symptoms: Painful Recent travel outside of the [place]: No Additional History Per: Prior Records Past Patient History - Infectious Disease Hx of Infectious Diseases: None - Tetanus Immunizations Tetanus Immunization: Unknown - Past Medical History & Family History Past Medical History?: Yes - Past Social History Smoking Status: Never Smoked - CARDIAC Hx Cardiac Disorders: Yes Hx Hypercholesterolemia: Yes Hx Hypertension: Yes Hx Peripheral Edema: Yes - PULMONARY Hx Respiratory Disorders: Yes Hx Sleep Apnea: Yes - NEUROLOGICAL HX Cerebrovascular Accident: Yes (1998 mild stroke) Hx Transient Ischemic Attacks (TIA): Yes (in the 1970s) - HEENT Hx HEENT Problems: Yes Hx Blind: No Hx Cataracts: Yes 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.) - RENAL Date of Last Dialysis Treatment: 02/19/17 - ENDOCRINE/METABOLIC Hx Endocrine Disorders: Yes Hx Diabetes Mellitus Type 2: Yes - HEMATOLOGICAL/ONCOLOGICAL Hx Blood Disorders: Yes Hx Anemia: Yes - INTEGUMENTARY Hx Dermatological Problems: No - MUSCULOSKELETAL/RHEUMATOLOGICAL Hx Falls: No - GASTROINTESTINAL Hx Gastrointestinal Disorders: Yes (HX INTESTINAL OBSTUCTION NO SX) Hx Bowel Surgery: Yes (INTESTINAL OBSTRUCTION) - GENITOURINARY/GYNECOLOGICAL Hx Genitourinary Disorders: No - PSYCHIATRIC Hx Substance Use: No - SURGICAL HISTORY Hx Surgeries: Yes Hx Arteriovenous Shunt: Yes (06/17/15) Hx Cataract Extraction: Yes Hx Hysterectomy: Yes Hx Open Reduction Internal Fixation: Yes (R HIP) Hx Orthopedic Surgery: Yes (Right hip replacement) Hx Vascular Surgery: Yes Hx Vascular Access Device: Yes (for dialysis) Other/Comment: PERMA CATH RIGHT - ANESTHESIA Hx Anesthesia: Yes Hx Anesthesia Reactions: No Hx Malignant Hyperthermia: No Has any member of the family had a problem w/ anesthesia?: No Meds Allergies/Adverse Reactions: Allergies Allergy/AdvReac Type Severity Reaction Status Date / Time No Known Allergies Allergy Verified 02/21/17 16:49 - Medications Medications: Current Medications Calcium Acetate (Phoslo) 667 mg PO DAILY [facility] Last Admin: 02/22/17 10:40 Dose: Not Given Clopidogrel Bisulfate (Plavix) 75 mg PO DAILY [facility] Last Admin: 02/22/17 10:40 Dose: Not Given Docusate Sodium (Colace) 100 mg PO TID [facility] Last Admin: 02/22/17 18:18 Dose: 100 mg Heparin Sodium (Porcine) (Heparin) 5,000 units SC Q12 [facility] Last Admin: 02/22/17 10:39 Dose: Not Given Hydromorphone HCl (Dilaudid) 1 mg IVP Q4H PRN PRN Reason: Pain, severe (8-10) Last Admin: 02/22/17 11:23 Dose: 1 mg Oxycodone/Acetaminophen (Percocet 5/325 Mg Tab) 1 tab PO Q6H PRN PRN Reason: Pain, moderate (4-7) Stop: 02/25/17 14:03 Last Admin: 02/22/17 14:21 Dose: 1 tab Pantoprazole Sodium (Protonix Ec Tab) 40 mg PO DAILY [facility] Last Admin: 02/22/17 10:40 Dose: Not Given Vitamin B Complex/Vit C/Folic Acid (Nephro-Nandini) 1 tab PO DAILY [facility] Last Admin: 02/22/17 10:39 Dose: Not Given Zolpidem Tartrate (Ambien) 5 mg PO HS [facility] Results - Vital Signs Recent Vital Signs: Last Vital Signs Temp 97.4 F L 02/22/17 13:00 Pulse 81 02/22/17 13:00 Resp 18 02/22/17 13:00 BP 157/71 H 02/22/17 13:00 Pulse Ox 99 02/22/17 13:00 - Labs Result Diagrams: 02/21/17 20:00 02/21/17 20:24 Labs: Laboratory Results - last 24 hr 02/21/17 02/21/17 20:00 20:24 WBC 16.0 H D RBC 2.79 L Hgb 9.8 L Hct 31.1 L MCV 111.4 H D MCH 35.0 H MCHC 31.4 L RDW 18.6 H Plt Count 217 MPV 9.0 Neut % (Auto) 84.2 H Lymph % (Auto) 8.5 L [place] % (Auto) 6.8 Eos % (Auto) 0.3 Baso % (Auto) 0.2 Neut # 13.5 H Lymph # 1.4 [place] # 1.1 H Eos # 0.0 Baso # 0.0 Neutrophils % (Manual) 81 H Band Neutrophils % 1 Lymphocytes % (Manual) 7 L Monocytes % (Manual) 10 Basophils % (Manual) 1 Platelet Estimate Normal Hypochromasia (manual) Slight Poikilocytosis (manual Slight Anisocytosis (manual) Slight Microcytosis (manual) Slight Macrocytosis (manual) Slight Sodium 137 Potassium 5.1 Chloride 97 L Carbon Dioxide 27 Anion Gap 18 BUN 53 H Creatinine 4.6 H Est GFR ( Amer) 11 Est GFR (Non-Af Amer) 9 Random Glucose 101 Calcium 8.4 L Total Bilirubin 1.0 AST 56 H D ALT 18 Alkaline Phosphatase 149 H D Total Protein 7.1 Albumin 2.9 L Globulin 4.2 H Albumin/Globulin Ratio 0.7 L Assessment & Plan - Assessment and Plan (Free Text) Assessment: ESRD ON HD .. I GAVE HER HD TODAY .. NEXT HD ON SUN .. THEN NEXT WEEK HD ON ANEMIA OF CKD .. ON EPO SEVERE PAD .. FOR ANGIOGRAM / PLASTY MULTIPLE COMORBIDITIES P : HD TODAY C/O CURRENT CARE - Date & Time Date: 02/22/17 Time: 13:00
[2017-02-22 20:16] VITALS: RESP 20
--- NOTE | 2017-02-22 20:33 | PN ---
DATE: 02/22/2017 Room 353 B. I saw her this morning at length while she was receiving hemodialysis. She was comfortable, had very little pain in the right leg; however, she has been medicated with Dilaudid. The swelling of both lower extremities has significantly decreased. Obviously because she was in bed with her legs up, she was not sleeping in a chair with the legs dangling down as she does in the house, one of the reasons for her significant edema that she had. We have going through this for a long time and also because of dialysis, also fluid removal. The gangrene remains the basically unchanged with some malodor, which I mentioned yesterday this is new from the last several weeks that I saw her in the office. Other than that, no new changes. She denies any chest pain or shortness of breath. She appears comfortable. She told me she did not eat breakfast well. The rest of the review of systems otherwise negative. PHYSICAL EXAMINATION: GENERAL: Alert, appeared oriented, in no distress. I saw her several times for a long time this morning in the unit, first in dialysis unit then in her room. I missed her son Lucio who had been earlier in the hospital. VITAL SIGNS: Remains relatively stable. Blood pressure is slightly high at 160 /62. She remains afebrile. Respiratory rate totally unremarkable. CARDIOPULMONARY: From the cardiopulmonary viewpoint, no significant changes. LUNGS: Remains relatively clear except the right base, always with decreased breath sounds due to effusion that she has had chronically there. HEART: Normal in intensity and regular with the same systolic murmur that she has had all along. ABDOMEN: Remains benign. CENTRAL NERVOUS SYSTEM: Stable. No focal deficit. Alert and oriented. 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 The chemistries obviously with significant abnormalities due to end-stage renal disease. PLAN: I had a very long discussion today on the floor with the gas station service attendant, Dr. Kamara, it was very nice to see him personally and we went over the case at great length. I also discussed the case extensively with the infectious disease specialist, Dr. Robert, to give him a head start of this situation with gangrene, peripheral vascular disease, etc., etc., etc. PLAN: We will continue antibiotics, local care, hoping if the family makes connection with the physicians in [facility] perhaps she will be discharged or transferred there or the family would take her home and from home will take her to [place]. In the meantime, I am holding back any vascular surgery reevaluation by Dr. Clark because the family does not want any surgical interventions here, so I see no point beginning that unless it is absolutely necessary. Will sit tight. Denis Currie MD cc: 68 TT: 02/22/2017 20:32:42 Confirmation # [id number] Dictation # [id number] MTDD
--- NOTE | 2017-02-22 20:50 | CP.PCM.CON ---
History of Present Illness - History of Present Illness History of Present Illness: INFECTIOUS DISEASE CONSULTATION SHERIE ALARCON MD, FACP 3T 353-B 02/22/2017 CHART REVIEWED PT EXAMINED CASE DISCUSSED IN DETAIL WITH PMD DR FINE THIS PT IS AN [age] YEAR OLD FEMALE ADMITTED VIA ER/ED BECAUSE OF PERIPHERAL GANGRENE OF HER LOWER EXTREMITIES, ESPECIALLY THE 1,2 TOES LEFT FOOT AND ALSO THE FIRST TOE OF HER RIGHT FOOT. THE TIME INTERVAL IS IN QUESTION AND, ONE OF HER DAUGHTERS,THE PT'S FAMILY BROUGHT HER IN URGENTLY AN INFECTIOUS DISEASE CONSULTATION IS REQUESTED BECAUSE OF GANGRENE AND CELLULITIS OF HER FEET. PMHX: PERIPHERAL VASCULAR DISEASE RENAL FAILURE ON DIALYSIS RIGHT LEG STENT WITH DETERIORATION CELLULITIS RIGHT HIP SURGERY EYE DISEASE PSYC HISTORY IN THE PAST/SUICIDAL GESTURE ABD SURGERY YRS AGO CVA/TIA DM ANEMIA MORE INFORMATION TO FOLLOW NO ALLERGIES NO TOBACCO FAMILY HISTORY NOT APPLICABLE DUE TO HER AGE, LANGUAGE AND PSY ISSUES. VSS AWAKE AND ALERT AND ATTEMPTS TO FOLLOW DIRECTIONS DECREASED BREATH SOUNDS COR NOTE ABD SOFT EXTREMTIES- LEFT FOOT FIRST AND SECOND TOES GANGRENE WITH RESULTING EDEMA IN THE DORSUM OF HER FOOT RIGHT FOOT, THE FIRST TOE ALSO IS GANGRENOUS, MOSTLY DRY WITH DISTINCT ODOR. NEURO TO FOLLOW LABS: WBC 16,000 CREAT 4 PLUS IMPRESSION: ELDERLY FEMALE WITH PROGRESSIVE VASCULAR DISEASE MOST PROBABLY WILL END UP REQUIRING AMPUTATIONS SUGGEST ID BROWN TO START/CONTINUE VANCOMYCIN DOSED ACCORDING TO HER RENAL FUNCTION AND LVANCOMYCIN LEVELS FLAGYL 500 TID CEFEPIME ADJUSTED TO RENAL FUNCTION, 1 GM FIRST DOSE THEN 500MG POST DIALYSIS. ALERT ME TO ANY AVAILABLE C/S AND CHANGES IN CLINICAL CONDITION. SHERIE ALARCON MD, FACP Review of Systems - Constitutional Constitutional: As Per HPI - EENT Eyes: Change in Vision Ears: As Per HPI Nose/Mouth/Throat: Dry Mouth - Cardiovascular Cardiovascular: Leg Ulcers - Respiratory Respiratory: As Per HPI - Gastrointestinal Gastrointestinal: absent: Coffee Ground Emesis, Nausea, Vomiting - Musculoskeletal Musculoskeletal: Other (INITIAL PAIN IN HER FEET NOW AT RREST NO PAIN.) Past Patient History - Infectious Disease Hx of Infectious Diseases: None - Tetanus Immunizations Tetanus Immunization: Unknown - Past Medical History & Family History Past Medical History?: Yes - Past Social History Smoking Status: Never Smoked Chewing Tobacco Use: No Cigar Use: No - CARDIAC Hx Cardiac Disorders: Yes Hx Hypercholesterolemia: Yes Hx Hypertension: Yes Hx Peripheral Edema: Yes - PULMONARY Hx Respiratory Disorders: Yes Hx Sleep Apnea: Yes - NEUROLOGICAL HX Cerebrovascular Accident: Yes (1998 mild stroke) Hx Transient Ischemic Attacks (TIA): Yes (in the 1970s) - HEENT Hx HEENT Problems: Yes Hx Blind: No Hx Cataracts: Yes 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.) - RENAL Date of Last Dialysis Treatment: 02/19/17 - ENDOCRINE/METABOLIC Hx Endocrine Disorders: Yes Hx Diabetes Mellitus Type 2: Yes - HEMATOLOGICAL/ONCOLOGICAL Hx Blood Disorders: Yes Hx Anemia: Yes - INTEGUMENTARY Hx Dermatological Problems: No - MUSCULOSKELETAL/RHEUMATOLOGICAL Hx Falls: No - GASTROINTESTINAL Hx Gastrointestinal Disorders: Yes (HX INTESTINAL OBSTUCTION NO SX) Hx Bowel Surgery: Yes (INTESTINAL OBSTRUCTION) - GENITOURINARY/GYNECOLOGICAL Hx Genitourinary Disorders: No - PSYCHIATRIC Hx Substance Use: No - SURGICAL HISTORY Hx Surgeries: Yes Hx Arteriovenous Shunt: Yes (06/17/15) Hx Cataract Extraction: Yes Hx Hysterectomy: Yes Hx Open Reduction Internal Fixation: Yes (R HIP) Hx Orthopedic Surgery: Yes (Right hip replacement) Hx Vascular Surgery: Yes Hx Vascular Access Device: Yes (for dialysis) Other/Comment: PERMA CATH RIGHT - ANESTHESIA Hx Anesthesia: Yes Hx Anesthesia Reactions: No Hx Malignant Hyperthermia: No Has any member of the family had a problem w/ anesthesia?: No Meds Allergies/Adverse Reactions: Allergies Allergy/AdvReac Type Severity Reaction Status Date / Time No Known Allergies Allergy Verified 02/21/17 16:49 - Medications Medications: Current Medications Calcium Acetate (Phoslo) 667 mg PO DAILY [facility] Last Admin: 02/22/17 10:40 Dose: Not Given Clopidogrel Bisulfate (Plavix) 75 mg PO DAILY [facility] Last Admin: 02/22/17 10:40 Dose: Not Given Docusate Sodium (Colace) 100 mg PO TID [facility] Last Admin: 02/22/17 18:18 Dose: 100 mg Heparin Sodium (Porcine) (Heparin) 5,000 units SC Q12 [facility] Last Admin: 02/22/17 10:39 Dose: Not Given Hydromorphone HCl (Dilaudid) 1 mg IVP Q4H PRN PRN Reason: Pain, severe (8-10) Last Admin: 02/22/17 11:23 Dose: 1 mg Oxycodone/Acetaminophen (Percocet 5/325 Mg Tab) 1 tab PO Q6H PRN PRN Reason: Pain, moderate (4-7) Stop: 02/25/17 14:03 Last Admin: 02/22/17 14:21 Dose: 1 tab Pantoprazole Sodium (Protonix Ec Tab) 40 mg PO DAILY [facility] Last Admin: 02/22/17 10:40 Dose: Not Given Vitamin B Complex/Vit C/Folic Acid (Nephro-Nandini) 1 tab PO DAILY [facility] Last Admin: 02/22/17 10:39 Dose: Not Given Zolpidem Tartrate (Ambien) [address] [facility] Physical Exam - Head Exam Head Exam: ATRAUMATIC - Eye Exam Eye Exam: Normal appearance - ENT Exam ENT Exam: Mucous Membranes Dry - Neck Exam Neck exam: Positive for: Normal Inspection - Respiratory Exam Respiratory Exam: Decreased Breath Sounds, NORMAL BREATHING PATTERN - Cardiovascular Exam Cardiovascular Exam: REGULAR RHYTHM - GI/Abdominal Exam GI & Abdominal Exam: Normal Bowel Sounds - Rectal Exam Rectal Exam: Deferred - Extremities Exam Extremities exam: Negative for: calf tenderness Additional comments: LEFT FOOT 1ST/2ND TOES GANGRENE RIGHT FOOT 1ST TOE GANGRENE, NOTED ODOR OF GANGRENE NOTED. - Psychiatric Exam Psychiatric exam: Agitated - Skin Skin Exam: Dry Results - Vital Signs Recent Vital Signs: Last Vital Signs Temp 98.8 F 02/22/17 17:10 Pulse 85 02/22/17 17:10 Resp 20 02/22/17 17:10 BP 112/61 02/22/17 17:10 Pulse Ox 96 02/22/17 17:10 - Labs Result Diagrams: 02/21/17 20:00 02/21/17 20:24 Labs: Laboratory Results - last 24 hr 02/21/17 02/21/17 20:00 20:24 Neutrophils % (Manual) 81 H Band Neutrophils % 1 Lymphocytes % (Manual) 7 L Monocytes % (Manual) 10 Basophils % (Manual) 1 Platelet Estimate Normal Hypochromasia (manual) Slight Poikilocytosis (manual Slight Anisocytosis (manual) Slight Microcytosis (manual) Slight Macrocytosis (manual) Slight Sodium 137 Potassium 5.1 Chloride 97 L Carbon Dioxide 27 Anion Gap 18 BUN 53 H Creatinine 4.6 H Est GFR ( Amer) 11 Est GFR (Non-Af Amer) 9 Random Glucose 101 Calcium 8.4 L Total Bilirubin 1.0 AST 56 H D ALT 18 Alkaline Phosphatase 149 H D Total Protein 7.1 Albumin 2.9 L Globulin 4.2 H Albumin/Globulin Ratio 0.7 L Assessment & Plan (1) Gangrene of left foot Status: Acute Priority: High Comment: TOES 1ST AND 2ND. (2) Bilateral cellulitis of lower leg Status: Acute (3) Gangrene of toe of right foot Status: Acute Comment: VANCOMYCIN,FLAGYL,CEFEPIME. (4) Arterial vascular disease Status: Chronic (5) CKD (chronic kidney disease) stage V requiring chronic dialysis Status: Chronic (6) Diabetes mellitus type 2 in nonobese Status: Chronic (7) Leukocytosis Status: Acute Comment: GANGRENE WITH CELLULITIS (8) Anemia Status: Chronic (9) Suicide attempt Status: Resolved
[2017-02-22] MEDS ORDERED: Cefepime 1 GM in Sodium Chloride 0.9% 50 ML IVPB ONE (21:06)
[2017-02-22] MEDS ORDERED: Cefepime IV 1 gm in Dextrose 1 GM/50 ML BAG IVPB ONE (22:00)
[2017-02-23] MEDS: HYDROmorphone 1 mg/ml ISec IVP PRN (07:26)
--- NOTE | 2017-02-23 09:38 | CP.PCM.PN ---
Subjective - Date & Time of Evaluation Date of Evaluation: 02/23/17 Time of Evaluation: 09:35 - Subjective Subjective: Pt seen at bedside for follow up of gangrene toes 1,2 b/l chronic in nature with severe PAD b/l. Objective - Vital Signs/Intake and Output Vital Signs (last 24 hours): Temp Pulse Resp BP Pulse Ox 97.1 F L 79 20 156/87 H 97 02/23/17 08:00 02/23/17 08:00 02/23/17 08:00 02/23/17 08:00 02/23/17 08:00 Intake and Output: 02/23/17 02/23/17 06:59 18:59 Intake Total 570 Balance 570 - Medications Medications: Current Medications Calcium Acetate (Phoslo) 667 mg PO DAILY [facility] Last Admin: 02/22/17 10:40 Dose: Not Given Clopidogrel Bisulfate (Plavix) 75 mg PO DAILY [facility] Last Admin: 02/22/17 10:40 Dose: Not Given Docusate Sodium (Colace) 100 mg PO TID [facility] Last Admin: 02/22/17 18:18 Dose: 100 mg Heparin Sodium (Porcine) (Heparin) 5,000 units SC Q12 [facility] Last Admin: 02/22/17 21:51 Dose: 5,000 units Hydromorphone HCl (Dilaudid) 1 mg IVP Q4H PRN PRN Reason: Pain, severe (8-10) Last Admin: 02/23/17 07:26 Dose: 1 mg Cefepime HCl 0.5 gm/ Dextrose 50 mls @ 100 mls/hr IVPB DAILY [facility] Metronidazole (Flagyl) 500 mg PO TID [facility] Oxycodone/Acetaminophen (Percocet 5/325 Mg Tab) 1 tab PO Q6H PRN PRN Reason: Pain, moderate (4-7) Stop: 02/25/17 14:03 Last Admin: 02/22/17 14:21 Dose: 1 tab Pantoprazole Sodium (Protonix Ec Tab) 40 mg PO DAILY [facility] Last Admin: 02/22/17 10:40 Dose: Not Given Vitamin B Complex/Vit C/Folic Acid (Nephro-Nandini) 1 tab PO DAILY [facility] Last Admin: 02/22/17 10:39 Dose: Not Given Zolpidem Tartrate (Ambien) 5 mg PO HS [facility] Last Admin: 02/22/17 21:51 Dose: 5 mg - Labs Labs: 02/21/17 20:00 02/21/17 20:24
[2017-02-23] MEDS ORDERED: CEFEPIME IVPB SCH (10:00)
[2017-02-23] MEDS ORDERED: DEXTROSE 5% IVPB SCH (10:00)
[2017-02-23] MEDS ORDERED: WATER IVPB SCH (10:00)
[2017-02-23] MEDS: Pantoprazole 40 mg EC Tab PO SCH (11:06)
[2017-02-23] MEDS: Multivitamin Vitamin B Complex (Nephro-Vite) Tab PO SCH (11:06)
[2017-02-23] MEDS: Oxycodone/Acetaminophen 5/325 mg Tab PO PRN (11:10)
--- NOTE | 2017-02-23 13:16 | CP.PCM.PN ---
Subjective - Date & Time of Evaluation Date of Evaluation: 02/23/17 Time of Evaluation: 13:13 - Subjective Subjective: INFECTIOUS DISEASE PROGRESS NOTE SHERIE ALARCON 3T 353-B 02/23/2017 CLINICALLY MORE AWAKE AND DAUGHTER PRESERNT LONG DISCUSSION GIVEN CONCERNING FINDINGS. DISCUSSED CASE THIS AM WITH PMD DR GARCIA AND PREVIOUS VASCULAR SURGEON DR ESTER STANLEY. PT WILL NEED AMPUTATIONS FOR ATTEMPT OF CURE, AT BEST. REFUSING IV LINE. Objective - Vital Signs/Intake and Output Vital Signs (last 24 hours): Temp Pulse Resp BP Pulse Ox 97.1 F L 79 20 156/87 H 97 02/23/17 08:00 02/23/17 08:00 02/23/17 08:00 02/23/17 08:00 02/23/17 08:00 Intake and Output: 02/23/17 02/23/17 06:59 18:59 Intake Total 570 200 Balance 570 200 - Medications Medications: Current Medications Calcium Acetate (Phoslo) 667 mg PO DAILY [facility] Last Admin: 02/23/17 11:06 Dose: 667 mg Clopidogrel Bisulfate (Plavix) 75 mg PO DAILY [facility] Last Admin: 02/23/17 11:06 Dose: 75 mg Docusate Sodium (Colace) 100 mg PO TID [facility] Last Admin: 02/23/17 13:05 Dose: 100 mg Heparin Sodium (Porcine) (Heparin) 5,000 units SC Q12 [facility] Last Admin: 02/23/17 11:16 Dose: Not Given Hydromorphone HCl (Dilaudid) 1 mg IVP Q4H PRN PRN Reason: Pain, severe (8-10) Last Admin: 02/23/17 07:26 Dose: 1 mg Cefepime HCl 0.5 gm/ Dextrose 50 mls @ 100 mls/hr IVPB DAILY [facility] Last Admin: 02/23/17 12:26 Dose: Not Given Metronidazole (Flagyl) 500 mg PO TID [facility] Last Admin: 02/23/17 13:04 Dose: 500 mg Oxycodone/Acetaminophen (Percocet 5/325 Mg Tab) 1 tab PO Q6H PRN PRN Reason: Pain, moderate (4-7) Stop: 02/25/17 14:03 Last Admin: 02/23/17 11:10 Dose: 1 tab Pantoprazole Sodium (Protonix Ec Tab) 40 mg PO DAILY [facility] Last Admin: 02/23/17 11:06 Dose: 40 mg Vitamin B Complex/Vit C/Folic Acid (Nephro-Nandini) 1 tab PO DAILY [facility] Last Admin: 02/23/17 11:06 Dose: 1 tab Zolpidem Tartrate (Ambien) 5 mg PO HS [facility] Last Admin: 02/22/17 21:51 Dose: 5 mg - Labs Labs: 02/21/17 20:00 02/21/17 20:24 - Constitutional Appears: Non-toxic - Head Exam Head Exam: NORMAL INSPECTION - Eye Exam Eye Exam: Normal appearance - ENT Exam ENT Exam: Mucous Membranes Moist - Neck Exam Neck Exam: Normal Inspection - Respiratory Exam Respiratory Exam: NORMAL BREATHING PATTERN - Cardiovascular Exam Cardiovascular Exam: REGULAR RHYTHM - GI/Abdominal Exam GI & Abdominal Exam: Soft, Normal Bowel Sounds - Rectal Exam Rectal Exam: Deferred - Extremities Exam Additional comments: DESCRIBED YESTERDAY AT BEST. - Neurological Exam Neurological Exam: Alert, Awake - Psychiatric Exam Psychiatric exam: Anxious Assessment and Plan (1) Gangrene of left foot Status: Acute (2) Bilateral cellulitis of lower leg Assessment & Plan: ORAL ANTIBIOTICS FOR SUPPRESSIVE TREATMENT IF PT REFUSING SURGICAL INTERVENTION. Status: Acute (3) Gangrene of toe of right foot Status: Acute (4) Arterial vascular disease Status: Chronic (5) CKD (chronic kidney disease) stage V requiring chronic dialysis Status: Chronic (6) Diabetes mellitus type 2 in nonobese Status: Chronic (7) Leukocytosis Status: Acute (8) Anemia Status: Chronic (9) Suicide attempt Status: Resolved
--- NOTE | 2017-02-23 14:13 | RAD ---
Chest x-ray two views History: Pleural effusion. Comparison: 12/19/2016 Findings: Left basilar airspace opacity with small left pleural effusion. Right hilar prominence. Diffuse increased interstitial lung markings. Linear lucency along the lateral aspect of the right alan thorax may represent Mach artifact. Biapical pleural thickening with upper lobe granulomatous changes. Right central venous catheter tip extending into the right atrium. Cardiomegaly. Calcification at the aortic knob. Calcification within the aorta. Degenerative changes in the spine and shoulders. Chronic interstitial lung markings. Curvilinear radiopaque opacity projects over the left alan abdomen of uncertain clinical etiology. Correlation. Impression: Left basilar airspace opacity with small left pleural effusion. Right hilar prominence. Diffuse increased interstitial lung markings. Linear lucency along the lateral aspect of the right alan thorax may represent Mach artifact. Biapical pleural thickening with upper lobe granulomatous changes. Right central venous catheter tip extending into the right atrium. Cardiomegaly. Calcification at the aortic knob. Calcification within the aorta. Degenerative changes in the spine and shoulders. Chronic interstitial lung markings. Curvilinear radiopaque opacity projects over the left alan abdomen of uncertain clinical etiology. Correlation.
[2017-02-23 16:00] VITALS: BP 127/60; PULSE 67; TEMP 98.9; O2SAT 96
--- NOTE | 2017-02-24 18:29 | DS ---
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 Clark, vascular surgeon, several podiatrists and another vascular surgeon in [place], Dr. Milton, involved in her case, and she is awaiting vascular intervention in [place] 03/07/2017. The son and daughter that lives here in [place] have been taking her to [place] and the podiatr ist and vascular surgeon; however, the daughter who lives in [place] came to visit her, found the leg swollen and took [facility] and she was seen and by who obviously with this presentation and cellulitis, etcetera, deemed her necessary to be admi tted. Unfortunately, he did not know in detail the history, etcetera, and she ended in the Emergency Room. She was admitted for antibiotics, some swelling both lower extremities that is dependent due to end stage renal disease. She sleeps in the house with her legs down in a chair. Janet lozada, the daughter, Stefanie, from [place] did not have any personal knowledge of the severity of the legs, even though she was always in contact with the family, with the telephone as well as some pictu res as she told me. Nevertheless, she was admitted for acute care. PAST MEDICAL HISTORY: Includes diabetes mellitus, previous stoke, congestive heart failure, hyperten felice, suicide attempt many, many years ago after fracture right hip, right femur; the surgery b asically that suicide situation totally resolved. MEDICATIONS AT HOME: Multiple, which include Losartan, , multiple medications for her renal dis ease, as well as clopidogrel 75 mg once a day. It looks like several months after Dr. Clark here EDI stent to the distal right leg, right lower extremity. Despite change is continued an d now she is having severe gangrene in both, actually right as well as left great toes and the 4th to es . But she is awaiting hopefully some vascular procedure in [place], but she declines and woods s declined and the family is also against any amputation of the lower extremities. HOSPITAL COURSE: Totally benign, unremarkable. The swelling in the lower extremities resolved overn ight, because she puts her legs in the hospital bed. She underwent dialysis by Dr. Castañeda the . 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 Empirically, antibiotics were started and she was taking at home vancomycin due to dialysis , etcetera, and this has been going on for quite, quite some time, weeks, and she was having some loc al care of both feet. Bathing with betadine, applying dressing, etcetera, as instructed by podiatris t in [place]. The patient was seen by Dr. Kamara, the manager event, who took care of the wound care. Was seen by Dr. Castañeda's group who take care of the end stage renal disease, as well as Dr. Robert yesterday, infe ctious disease. We had to start her empirically on Rocephin, as well as vancomycin. This was switch ed to Flagyl, as well as she was started on cefepime 0.5 gram daily. I had a long conversation with both daughters, the one from [facility], as well as the daughter here who happens to be a dentist, , and they are all aware of the situation and she is very hap py to go home. She feels totally fine today. She feels well. She is sleeping well and they want to take their mother home and will continue antibiotics and wound care awaiting for vascular evaluation 03/07/2017, and that was the plan all along. I strongly advised to keep the legs elevated to prevent any dependent edema as she has all the time b ecause of sleeping in the reclining chair. She is going to have dialysis tomorrow and then following which she will go to her regular schedule Sunday, Sunday and Sunday. She is to go home with the following medications: Flagyl, metronidazole 500 mg p.o. 3 times a day by mouth, 500 mg once a day, same medication for several days, , Percocet 5/325 every 6 hours or so. Continue the wallace l medication including the acetate, the vitamin B complex. She is also on Plavix 75 mg for a y ear; a couple of months ago, as well as pantoprazole and vitamin B complex, etcetera, all of th is under the care of the renal group. I spoke with Stefanie here and she is to come to the office next week and to call me and report progress. Very, very happy. The mother was very excited. When she s aw me, she ran and hugged me and she wanted to go home and she is in very good spirits at this point in time. We revisited the x-ray because of the previous x-ray she had done showed a patchy infiltrate that had been reported off and on by radiologist, in my opinion all due to congestion, heart failure, fluid o verload, etcetera, and today, several months and there is resolution of that infiltrate, etcete ra; it was all due to fluid collection, etcetera. No evidence of any mass or pneumonia have been rep orted in previous x-rays. Denis Currie MD cc: 68 TT: 02/23/2017 22:55:40 naya
== END 2017-02-23 17:00 | disposition home or self-care (01) | DRG 299 ==
LOC: C.ER 16:37 → C.9E 19:49 → C.3T 22:04
PROVIDERS: ADMIT Internal Medicine Cardiovascular Disease; ATTEND Internal Medicine Cardiovascular Disease
PROC: 5A1D00Z (ICD-10-PCS; principal; 2017-02-21)
DX: E11.52 Type 2 diabetes mellitus with diabetic peripheral angiopathy with gangrene (principal); N18.6 End stage renal disease; I13.2 Hypertensive heart and chronic kidney disease with heart failure and with stage 5 chronic kidney disease, or end stage renal disease; L03.115 Cellulitis of right lower limb; E11.22 Type 2 diabetes mellitus with diabetic chronic kidney disease; L03.116 Cellulitis of left lower limb; I50.9 Heart failure, unspecified; D63.1 Anemia in chronic kidney disease; E78.00 Pure hypercholesterolemia, unspecified; I73.9 Peripheral vascular disease, unspecified; H54.42 Blindness, left eye, normal vision right eye; G47.30 Sleep apnea, unspecified; H35.30 Unspecified macular degeneration; Z96.641 Presence of right artificial hip joint; Z91.5 Personal history of self-harm; Z86.73 Personal history of transient ischemic attack (TIA), and cerebral infarction without residual deficits; Z99.2 Dependence on renal dialysis

== ENCOUNTER 2017-04-10 16:06 | Inpatient (IN) | payer MEDICARE, BC ==
[2017-04-10 16:07] VITALS: BMI 18.3
[2017-04-10 18:09] LABS: BASO # 0.1 K/uL (0.0-0.2); EOS % 0.1 % (0.0-4.0); MEAN PLATELET VOLUME 9.4 fL (7.2-11.7); MONO # 0.7 K/uL (0.0-0.8); MONO % 4.7 % (0.0-10.0); WHITE BLOOD COUNT 14.3 K/uL (4.8-10.8)
[2017-04-10 18:13] LABS: POTASSIUM 4.9 mmol/L (3.6-5.2)
[2017-04-10 18:15] LABS: ALB/GLOB RATIO 0.8 (1.0-2.1); BILIRUBIN,TOTAL 0.5 mg/dL (0.2-1.3)
[2017-04-10 18:16] LABS: CALCIUM 7.7 mg/dl (8.6-10.4)
[2017-04-10 18:18] LABS: INR 1.1
[2017-04-10 18:21] LABS: BASO % 0.5 % (0.0-2.0); HEMATOCRIT 16.6 % (34.0-47.0); LYMPH # 0.9 K/uL (1.0-4.3); LYMPH % 6.1 % (20.0-40.0); MEAN CORPUSCULAR HEMOGLOBIN 32.2 pg (27.0-31.0); MEAN CORPUSCULAR HGB CONC 31.4 g/dL (33.0-37.0); PLATELET COUNT 199 K/uL (130-400); RED CELL DISTRIBUTION WIDTH 17.8 % (11.5-14.5)
[2017-04-10 18:24] LABS: MEAN CELL VOLUME 102.6 fL (81.0-99.0)
[2017-04-10 18:44] LABS: NEUTROPHIL 90 % (50-75); TOTAL CELLS COUNTED 100
--- NOTE | 2017-04-10 19:26 | C.PDOC ---
History Of Present Illness Patient presents to the ER with son for a complaint of increased generalized pain. As per son, patient had dialysis done yesterday; she goes for Sunday, Sunday, Sunday dialysis. History obtained from son as patient refuses to talk ; son denies patient has had symptoms of fever, chills, nausea, or vomiting. Time Seen by Provider: 04/10/17 19:14 Chief Complaint (Nursing): Abnormal Skin Integrity History Per: Family History/Exam Limitations: no limitations Onset/Duration Of Symptoms: Hrs Current Symptoms Are (Timing): Still Present Quality Of Symptoms: Painful Severity: Moderate Pain Scale Rating Of: 5 Recent travel outside of the [place]: No Past Medical History Reviewed: Historical Data, Nursing Documentation, Vital Signs Vital Signs: Last Vital Signs Temp 97.8 F 04/11/17 00:15 Pulse 84 04/11/17 00:15 Resp 16 04/11/17 00:15 BP 123/50 L 04/11/17 00:15 Pulse Ox 100 04/11/17 00:15 - Medical History PMH: Anemia, Diabetes, HTN, Hypercholesterolemia, Peripheral Edema, End Stage Renal Disease, Chronic Kidney Disease, Sleep Apnea, TIA (in the 1970s) Surgical History: No Surg Hx - [facility] Procedures FLUOROSCOPY OF SUP VENA CAVA USING L OSM CONTRAST, GUIDANCE (06/17/15) INFLUENZA VACCINATION (07/30/13) INSERTION OF INFUSION DEV INTO SUP VENA CAVA, PERC APPROACH (06/17/15) PACKED CELL TRANSFUSION (07/30/13) PARTIAL HIP REPLACEMENT (07/30/13) PERFORMANCE OF URINARY FILTRATION, MULTIPLE (06/17/15) PERFORMANCE OF URINARY FILTRATION, SINGLE (02/21/17) REMOVAL OF INFUSION DEVICE FROM UPPER VEIN, PERC APPROACH (06/17/15) TRANSFUSE NONAUT RED BLOOD CELLS IN PERIPH VEIN, PERC (06/17/15) ULTRASONOGRAPHY OF SUPERIOR VENA CAVA, GUIDANCE (06/17/15) VACCINATION NEC (07/30/13) Family History: States: No Known Family Hx - Social History Hx Tobacco Use: No Hx Alcohol Use: No Hx Substance Use: No - Immunization History Hx Tetanus Toxoid Vaccination: (unk) Hx Influenza Vaccination: Yes Hx Pneumococcal Vaccination: Yes Review Of Systems Review Of Systems: ROS cannot be obtained secondary to pt's inabilty to answer questions. Physical Exam - Physical Exam Appears: Non-toxic Skin: Warm, Dry Oral Mucosa: Moist Neck: Normal, Supple Chest: No Tenderness, Other (Right chest dialysis shunt) Cardiovascular: Rhythm Regular Respiratory: Normal Breath Sounds, No Rales, No Rhonchi, No Wheezing Gastrointestinal/Abdominal: Soft, No Tenderness Back: No CVA Tenderness Extremity: Pedal Edema, Capillary Refill (Decreased to bilateral feet), Other ( PICC line to right arm, left arm dialysis shunt with good thrill and bruit, left hand edema. Dried gangrene to right 1st and 2nd toes with maggots intradigitally, gangrene to left 1st, 2nd, and 3rd toes with cellulitic changes) Pulses: Left Dorsalis Pedis: Decreased, Right Dorsalis Pedis: Decreased Neurological/Psych: Oriented x3 ED Course And Treatment - Laboratory Results Result Diagrams: 04/10/17 17:59 04/10/17 17:59 O2 Sat by Pulse Oximetry: 98 (Room air) Pulse Ox Interpretation: Normal Progress Note: Blood work. Morphine administered. Critical Care Time - Critical Care Note Total Time (in mins): 30 Documented critical care: time excludes all time spent performing seperately billable procedures. Disposition Discussed With : Rosalinda Onofre Comment: accepted the pt on her service and took over the care at 9:30 PM Doctor Will See Patient In The: Hospital Counseled Patient/Family Regarding: Studies Performed, Diagnosis - Disposition Disposition: HOSPITALIZED Disposition Time: 19:00 Condition: CRITICAL - Clinical Impression Clinical Impression: Gangrene, ESRD (end stage renal disease) on dialysis, Anemia - Scribe Statement The provider has reviewed the documentation as recorded by the Yessica To All medical record entries made by the Jenniferibtheresa were at my direction and personally dictated by me. I have reviewed the chart and agree that the record accurately reflects my personal performance of the history, physical exam, medical decision making, and the department course for this patient. I have also personally directed, reviewed, and agree with the discharge instructions and disposition. Decision To Admit - Pt Status Changed To: Hospital Disposition Of: Inpatient - Admit Certification Admit to Inpatient:: After my assessment, the patient will require hospitalization for at least two midnights. This is because of the severity of symptoms shown, intensity of services needed, and/or the medical risk in this patient being treated as an outpatient. - InPatient: Physician Admission Certification: I certify that this patient requires 2 or more midnights of care for the following reason:: After my assessment, the patient will require hospitalization for at least two midnights. This is because of the severity of symptoms shown, intensity of services needed, and/or the medical risk in this patient being treated as an outpatient. - . Bed Request Type: Telemetry Admitting Physician: Rosalinda Onofre Patient Diagnosis: Gangrene, ESRD (end stage renal disease) on dialysis, Anemia
[2017-04-10 21:38] LABS: VENOUS BLOOD GAS PCO2 49 mmHg (40-60); VENOUS BLOOD PH 7.38 (7.32-7.43)
[2017-04-10] MEDS ORDERED: Dakin's Topical 0.5%-Full Strength (480 ml) TOP ONE (22:18)
--- NOTE | 2017-04-10 23:51 | CP.PCM.CON ---
History of Present Illness - History of Present Illness History of Present Illness: Patient is an 86 year old female with PMHx of DM, PVD, CKD seen in the ED for b/ l lower extremity cellulitis, gangrene and maggots. Patient is unwilling and/or unable to communicate with me at this time. Patient's son related to Dr. Gao that she has been a patient of Dr. Venancio Avitia in the past and has been seen for similar conditions in the ED many times. Dr. Gao related to me that prior to my arrival most maggots had been removed from the interdigital space of patient's left foot. 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.) - RENAL Hx Chronic Kidney Disease: Yes - ENDOCRINE/METABOLIC Hx Diabetes Mellitus Type 2: Yes - HEMATOLOGICAL/ONCOLOGICAL Hx Anemia: Yes - INTEGUMENTARY Hx Dermatological Problems: No - GASTROINTESTINAL Hx Gastrointestinal Disorders: Yes (HX INTESTINAL OBSTUCTION NO SX) Hx Bowel Surgery: Yes (INTESTINAL OBSTRUCTION) - GENITOURINARY/GYNECOLOGICAL Hx Genitourinary Disorders: No - PSYCHIATRIC Hx Substance Use: No - SURGICAL HISTORY Hx Surgeries: Yes Hx Arteriovenous Shunt: Yes (06/17/15) Hx Cataract Extraction: Yes Hx Hysterectomy: Yes Hx Open Reduction Internal Fixation: Yes (R HIP) Hx Orthopedic Surgery: Yes (Right hip replacement) Hx Vascular Surgery: Yes Hx Vascular Access Device: Yes (for dialysis) Other/Comment: PERMA CATH RIGHT - ANESTHESIA Hx Anesthesia: Yes Hx Anesthesia Reactions: No Hx Malignant Hyperthermia: No Meds Allergies/Adverse Reactions: Allergies Allergy/AdvReac Type Severity Reaction Status Date / Time No Known Allergies Allergy Verified 02/21/17 16:49 Physical Exam - Constitutional Appears: In Acute Distress, Unkempt, Agitated, Confused - Extremities Exam Additional comments: Lower extremity focused exam Vasc: DP/PT pulses non-palpable b/l. CFT > 3 seconds. Skin temperature cold to cold from mid-leg to distal toes. Severe, pitting edema appreciated to b/l LE Neuro: Epicritic and protective sensation grossly intact b/l Derm: Right foot- Chronic gangrenous changes noted to entirety of first and second digits. First interspace has wound with rivers, soupy anatomically unidentifiable tissue noted within. Probe to bone is positive at this site. >13 maggots removed from this site. Abrasion noted to extend dorsally from the wound with base >90% fibrotic. Left foot- Chronic gangrenous changes Noted to entirety of left hallux, distal half of second digit, distal tip of third digit and plantarly on fourth and fifth digits. Demarcation of chronic ischemic changes noted to entire distal half of foot consisting of superficial abrasions and fibrotic skin changes. No open lesions noted at this time. MSK: Severe POP diffusely the b/l LE - Neurological Exam Neurological exam: Alert - Psychiatric Exam Psychiatric exam: Agitated Results - Vital Signs Recent Vital Signs: Last Vital Signs Temp 98.6 F 04/10/17 16:23 Pulse 87 04/10/17 16:23 Resp 22 04/10/17 16:23 BP 109/44 L 04/10/17 16:23 Pulse Ox 98 04/10/17 21:52 - Labs Result Diagrams: 04/10/17 17:59 04/10/17 17:59 Labs: Laboratory Results - last 24 hr 04/10/17 22:10 Blood Type A POSITIVE Antibody Screen Negative Assessment & Plan - Assessment and Plan (Free Text) Assessment: 86 year old female seen in ED with chronic gangrenous changes seen to b/l LE with maggot infested wound secondary to DM, PVD Plan: Patient seen and evaluated in ED Charts, labs and vitals reviewed; patient afebrile, WBC- 14.[address] Kamara Greater than 13 maggots removed from first digital interspace of right foot It can not be confirmed at this time that all maggots were successfully removed from the area Wound soaked with copious amounts of hydrogen peroxide Dressed with Dakins solution soaked gauze and light kerlix wrapping Patient to be admitted to floors Cardiology, ID and Nephrology consults appreciated at this time Abx per ID Podiatry to follow while in house - Date & Time Date: 04/11/17 Time: 23:06
[2017-04-11] MEDS ORDERED: Oxycodone/Acetaminophen 5/325 mg Tab PO PRN (01:13)
[2017-04-11] MEDS ORDERED: cefTRIAXone IV 1 gm in Dextros 50 ML IVPB ONE (01:13)
[2017-04-11] MEDS: (Novolin R) Insulin Human Regular 100 units/ml vial SC SCH ×4 (08:30→22:40)
[2017-04-11 08:40] LABS: BASO # 0.1 K/uL (0.0-0.2); BASO % 0.5 % (0.0-2.0); HEMATOCRIT 21.1 % (34.0-47.0); LYMPH # 0.9 K/uL (1.0-4.3); LYMPH % 6.2 % (20.0-40.0); MEAN CORPUSCULAR HEMOGLOBIN 30.1 pg (27.0-31.0); MEAN CORPUSCULAR HGB CONC 32.7 g/dL (33.0-37.0); MEAN PLATELET VOLUME 9.2 fL (7.2-11.7); MONO # 0.6 K/uL (0.0-0.8); PLATELET COUNT 214 K/uL (130-400); RED CELL DISTRIBUTION WIDTH 22.7 % (11.5-14.5); WHITE BLOOD COUNT 14.4 K/uL (4.8-10.8)
[2017-04-11 08:47] LABS: POTASSIUM 4.5 mmol/L (3.6-5.2)
[2017-04-11 08:49] LABS: ALB/GLOB RATIO 0.7 (1.0-2.1); BILIRUBIN,TOTAL 0.6 mg/dL (0.2-1.3); CALCIUM 7.7 mg/dl (8.6-10.4); MEAN CELL VOLUME 92.2 fL (81.0-99.0); TOTAL PROTEIN 5.5 g/dL (6.3-8.3)
[2017-04-11] MEDS: Multivitamin Vitamin B Complex (Nephro-Vite) Tab PO SCH (09:00)
--- NOTE | 2017-04-11 09:29 | CP.PCM.PN ---
<Ese Booth - Last Filed: 04/11/17 12:22> Subjective - Date & Time of Evaluation Date of Evaluation: 04/11/17 Time of Evaluation: 09:29 - Subjective Subjective: 86 year old female seen resting in bed this morning for B/L leg edema and b/l feet gangrene. Patient does not answer questions, but does moan when her feet are touched. Objective - Vital Signs/Intake and Output Vital Signs (last 24 hours): Temp Pulse Resp BP Pulse Ox 97.8 F 83 20 121/65 100 04/11/17 01:21 04/11/17 01:21 04/11/17 01:21 04/11/17 01:21 04/11/17 01:21 - Medications Medications: Current Medications Calcium Acetate (Phoslo) 667 mg PO DAILY [facility] Insulin Human Regular (Novolin R) 0 unit SC ACHS [facility] PRN Reason: Protocol Last Admin: 04/11/17 08:30 Dose: Not Given Oxycodone/Acetaminophen (Percocet 5/325 Mg Tab) 1 tab PO Q8H PRN PRN Reason: Pain, moderate (4-7) Stop: 04/14/17 01:14 Last Admin: 04/11/17 09:02 Dose: 1 tab Vitamin B Complex/Vit C/Folic Acid (Nephro-Nandini) 1 tab PO 0800 [facility] Last Admin: 04/11/17 09:00 Dose: 1 tab Zolpidem Tartrate (Ambien) 5 mg PO HS PRN PRN Reason: Insomnia - Labs Labs: 04/11/17 08:18 04/11/17 08:18 PT 12.5 SECONDS (9.7-12.2) H 04/10/17 17:59 INR 1.1 04/10/17 17:59 APTT 37 SECONDS (21-34) H 04/10/17 17:59 - Constitutional Appears: No Acute Distress - Extremities Exam Additional comments: Bilateral Lower extremity focused exam: Vasc: DP and PT pulses non-palpable b/l. CFT > 3 seconds to all digits. Skin temperature cold to cold from mid-leg to distal toes. +3 pitting edema noted b/ l legs Neuro: unable to assess Derm: Right foot- Chronic dry gangrenous changes noted to entirety of first and second digits. First interspace has wound with rivers, soupy tissue noted. Probe to bone is positive at this site. Abrasion noted to extend dorsally from the wound with base >90% fibrotic. Left foot- Chronic dry gangrenous changes Noted to entirety of left hallux, distal half of second digit, distal tip of third digit and plantarly on fourth and fifth digits. Demarcation of chronic ischemic changes noted to entire distal half of foot consisting of superficial abrasions and fibrotic skin changes. No open lesions noted at this time. Skin is mildly macerated at the dorsum of the foot. Ortho: Severe POP diffusely the b/l LE - Neurological Exam Neurological Exam: Alert, Awake Assessment and Plan - Assessment and Plan (Free Text) Assessment: 86 year old female with B/L LE pitting edema and gangrene to feet b/l secondary to DM, PVD Plan: Patient examined and evaluated Discussed in detail with attending, Dr. Kamara Chart, labs, vitals reviewed LE cleansed with peroxide, no maggots found Feet dressed with betadine gauze, 4x4, kerlix Continue IVabx per ID Podiatry will continue to follow patient while in house <Venancio Kamara - Last Filed: 04/11/17 19:27> Subjective - Subjective Subjective: Pt seen at bedside .agree with above findings . discussed case with daughter . Patient and family decline amputation . Objective - Vital Signs/Intake and Output Vital Signs (last 24 hours): Temp Pulse Resp BP Pulse Ox 97.9 F 87 20 128/62 100 04/11/17 18:34 04/11/17 18:34 04/11/17 18:34 04/11/17 18:34 04/11/17 18:34 Intake and Output: 04/11/17 04/11/17 06:59 18:59 Intake Total 710 Balance 710 - Medications Medications: Current Medications Calcium Acetate (Phoslo) 667 mg PO DAILY [facility] Last Admin: 04/11/17 10:07 Dose: Not Given Epoetin Kailash (Procrit) 10,000 unit IV TTS [facility] Hydromorphone HCl (Dilaudid) 0.5 mg IVP Q6H PRN PRN Reason: Pain, severe (8-10) Last Admin: 04/11/17 13:11 Dose: 0.5 mg Ceftriaxone Sodium (Rocephin Iv 1 Gm Duplex) 50 mls @ 50 mls/30 min IVPB Q24H [facility] Last Admin: 04/11/17 14:40 Dose: 50 mls/30 min Vancomycin HCl (Vancocin 750mg/D5w 150 Ml) 150 mls @ 100 mls/hr IV ONCE ONE Stop: 04/11/17 19:29 Last Admin: 04/11/17 18:36 Dose: 100 mls/hr Insulin Human Regular (Novolin R) 0 unit SC ACHS [facility] PRN Reason: Protocol Last Admin: 04/11/17 18:27 Dose: Not Given Vitamin B Complex/Vit C/Folic Acid (Nephro-Nandini) 1 tab PO 0800 [facility] Last Admin: 04/11/17 09:00 Dose: 1 tab Zolpidem Tartrate (Ambien) 5 mg PO HS PRN PRN Reason: Insomnia - Labs Labs: 04/11/17 08:18 04/11/17 08:18 PT 12.5 SECONDS (9.7-12.2) H 04/10/17 17:59 INR 1.1 04/10/17 17:59 APTT 37 SECONDS (21-34) H 04/10/17 17:59 Assessment and Plan - Assessment and Plan (Free Text) Plan: Agree with above findings .Pt seen and evaluated at bedside . .Dr Martinez .
[2017-04-11 09:36] LABS: NEUTROPHIL 91 % (50-75); TOTAL CELLS COUNTED 100
[2017-04-11] MEDS: HYDROmorphone 0.5 mg/0.5 ml ISec IVP PRN (13:11)
--- NOTE | 2017-04-11 13:12 | CP.PCM.PN ---
Subjective - Date & Time of Evaluation Date of Evaluation: 04/11/17 Time of Evaluation: 12:15 - Subjective Subjective: CAN RECONDITIONER NOTES Pt seen and examine d today , family at bedside , lethargic, arousable , NAD Patient on HD MWF schedule , and due HD today , Consent for HD obtained from daughter Chantal(POA) Family also mentioned patient has Advance directive stating DNR/DNI , and family wishes to respect her wishes copy of Advance directive placed on chart and code status updates in epic as per patients family Objective - Vital Signs/Intake and Output Vital Signs (last 24 hours): Temp Pulse Resp BP Pulse Ox 97.4 F L 89 20 119/56 L 98 04/11/17 08:00 04/11/17 10:00 04/11/17 08:00 04/11/17 08:00 04/11/17 08:00 - Medications Medications: Current Medications Calcium Acetate (Phoslo) 667 mg PO DAILY [facility] Last Admin: 04/11/17 10:07 Dose: Not Given Hydromorphone HCl (Dilaudid) 0.5 mg IVP Q6H PRN PRN Reason: Pain, severe (8-10) Insulin Human Regular (Novolin R) 0 unit SC ACHS [facility] PRN Reason: Protocol Last Admin: 04/11/17 12:20 Dose: Not Given Vitamin B Complex/Vit C/Folic Acid (Nephro-Nandini) 1 tab PO 0800 [facility] Last Admin: 04/11/17 09:00 Dose: 1 tab Zolpidem Tartrate (Ambien) 5 mg PO HS PRN PRN Reason: Insomnia - Labs Labs: 04/11/17 08:18 04/11/17 08:18 PT 12.5 SECONDS (9.7-12.2) H 04/10/17 17:59 INR 1.1 04/10/17 17:59 APTT 37 SECONDS (21-34) H 04/10/17 17:59
--- NOTE | 2017-04-11 13:21 | CP.PCM.CON ---
History of Present Illness - History of Present Illness History of Present Illness: Infectious Disease Consult; HPI; .86-year-old female with history of DM, PVD, CAD, ESRD on hemodialysis MWF, who presented to [facility], brought in by son for bilateral lower extremity cellulitis, gangrene and maggots. As per history patient had most maggots removed from her interdigital space off patient's left foot. Patient is being followed by Dr. Kamara as outpatient. History obtained mainly from the chart as patient unable to give any details. Patient has a right arm PICC line in place and also has a hemodialysis right chest wall catheter in place. On admission patient was found to have leukocytosis with WBC count of 14.3 and hemoglobin of 5.2. Patient has received 3 units of packed red blood cells since last night. Patient is seen at hemodialysis. INFECTIOUS DISEASE CONSULTATION REQUESTED BY PMD DR Lenny TEE. fOR CELLULITIS AND GANGRENE BOTH LOWER EXTREMITIES. ALLERGY; NKA. PMH: Anemia, Diabetes, HTN, Hypercholesterolemia, Peripheral Edema, End Stage Renal Disease, Chronic Kidney Disease, Sleep Apnea, TIA (in the 1970s) Surgical History: No Surg Hx - [facility] Procedures FLUOROSCOPY OF SUP VENA CAVA USING L OSM CONTRAST, GUIDANCE (06/17/15) INFLUENZA VACCINATION (07/30/13) INSERTION OF INFUSION DEV INTO SUP VENA CAVA, PERC APPROACH (06/17/15) PACKED CELL TRANSFUSION (07/30/13) PARTIAL HIP REPLACEMENT (07/30/13) PERFORMANCE OF URINARY FILTRATION, MULTIPLE (06/17/15) PERFORMANCE OF URINARY FILTRATION, SINGLE (02/21/17) REMOVAL OF INFUSION DEVICE FROM UPPER VEIN, PERC APPROACH (06/17/15) TRANSFUSE NONAUT RED BLOOD CELLS IN PERIPH VEIN, PERC (06/17/15) ULTRASONOGRAPHY OF SUPERIOR VENA CAVA, GUIDANCE (06/17/15) VACCINATION NEC (07/30/13) Family History: States: No Known Family Hx - Social History Hx Tobacco Use: No Hx Alcohol Use: No Hx Substance Use: No - Immunization History Hx Tetanus Toxoid Vaccination: (unk) Hx Influenza Vaccination: Yes Hx Pneumococcal Vaccination: Yes Review Of Systems Review Of Systems: ROS cannot be obtained secondary to pt's inabilty to answer questions. Past Patient History - Infectious Disease Hx of Infectious Diseases: None - Tetanus Immunizations Tetanus Immunization: Unknown - Past Medical History & Family History Past Medical History?: Yes - Past Social History Smoking Status: Never Smoked - CARDIAC Hx Hypercholesterolemia: Yes Hx Hypertension: Yes Hx Peripheral Edema: Yes - PULMONARY Hx Sleep Apnea: Yes - NEUROLOGICAL Hx Transient Ischemic Attacks (TIA): Yes (in the 1970s) - HEENT Hx HEENT Problems: Yes Hx Blind: No Hx Cataracts: Yes 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.) - RENAL Hx Chronic Kidney Disease: Yes Hx Dialysis: Yes Type of Dialysis Access: R permacath Date of Last Dialysis Treatment: 04/09/17 - ENDOCRINE/METABOLIC Hx Diabetes Mellitus Type 2: Yes - HEMATOLOGICAL/ONCOLOGICAL Hx Anemia: Yes Hx Blood Transfusions: Yes Hx Blood Transfusion Reaction: No - INTEGUMENTARY Hx Dermatological Problems: No - MUSCULOSKELETAL/RHEUMATOLOGICAL Hx Musculoskeletal Disorders: No Hx Falls: No - GASTROINTESTINAL Hx Gastrointestinal Disorders: Yes (HX INTESTINAL OBSTUCTION NO SX) Hx Bowel Surgery: Yes (INTESTINAL OBSTRUCTION) - GENITOURINARY/GYNECOLOGICAL Hx Genitourinary Disorders: No - PSYCHIATRIC Hx Psychophysiologic Disorder: No Hx Substance Use: No - SURGICAL HISTORY Hx Surgeries: Yes Hx Arteriovenous Shunt: Yes (06/17/15) Hx Cataract Extraction: Yes Hx Hysterectomy: Yes Hx Open Reduction Internal Fixation: Yes (R HIP) Hx Orthopedic Surgery: Yes (Right hip replacement) Hx Vascular Surgery: Yes Hx Vascular Access Device: Yes (for dialysis) Other/Comment: PERMA CATH RIGHT - ANESTHESIA Hx Anesthesia: Yes Hx Anesthesia Reactions: No Hx Malignant Hyperthermia: No Meds Allergies/Adverse Reactions: Allergies Allergy/AdvReac Type Severity Reaction Status Date / Time No Known Allergies Allergy Verified 02/21/17 16:49 - Medications Medications: Current Medications Calcium Acetate (Phoslo) 667 mg PO DAILY [facility] Last Admin: 04/11/17 10:07 Dose: Not Given Hydromorphone HCl (Dilaudid) 0.5 mg IVP Q6H PRN PRN Reason: Pain, severe (8-10) Last Admin: 04/11/17 13:11 Dose: 0.5 mg Insulin Human Regular (Novolin R) 0 unit SC ACHS [facility] PRN Reason: Protocol Last Admin: 04/11/17 12:20 Dose: Not Given Vitamin B Complex/Vit C/Folic Acid (Nephro-Nandini) 1 tab PO 0800 [facility] Last Admin: 04/11/17 09:00 Dose: 1 tab Zolpidem Tartrate (Ambien) 5 mg PO HS PRN PRN Reason: Insomnia Physical Exam - Constitutional Appears: Confused, Cachectic, Chronically Ill - Head Exam Head Exam: NORMAL INSPECTION - Eye Exam Eye Exam: PERRL - ENT Exam ENT Exam: Mucous Membranes Dry - Neck Exam Neck exam: Positive for: Normal Inspection - Respiratory Exam Respiratory Exam: Decreased Breath Sounds - Cardiovascular Exam Cardiovascular Exam: REGULAR RHYTHM, +S1, +S2 - GI/Abdominal Exam GI & Abdominal Exam: Normal Bowel Sounds, Soft. absent: Organomegaly - Extremities Exam Extremities exam: Positive for: pedal edema, pedal pulses present (distant. Right first and second toes dried gangrene with maggots interdigitally. Gangrene left first, second and third toes with cellulitis and ischemic changes. ). Negative for: calf tenderness Results - Vital Signs Recent Vital Signs: Last Vital Signs Temp 97.4 F L 04/11/17 08:00 Pulse 89 04/11/17 10:00 Resp 20 04/11/17 08:00 BP 119/56 L 04/11/17 08:00 Pulse Ox 98 04/11/17 08:00 - Labs Result Diagrams: 04/11/17 08:18 04/11/17 08:18 Labs: Laboratory Results - last 24 hr 04/10/17 04/11/17 04/11/17 22:10 06:13 08:18 WBC 14.4 H RBC 2.29 L Hgb 6.9 L Hct 21.1 L MCV 92.2 D MCH 30.1 MCHC 32.7 L RDW 22.7 H Plt Count 214 MPV 9.2 Neut % (Auto) 89.3 H Lymph % (Auto) 6.2 L [place] % (Auto) 4.0 Eos % (Auto) 0.0 Baso % (Auto) 0.5 Neut # 12.9 H Lymph # 0.9 L [place] # 0.6 Eos # 0.0 Baso # 0.1 Neutrophils % (Manual) 91 H Lymphocytes % (Manual) 6 L Monocytes % (Manual) 3 Platelet Estimate Normal Polychromasia Slight Hypochromasia (manual) Moderate Poikilocytosis (manual Slight Anisocytosis (manual) Slight Microcytosis (manual) Slight Macrocytosis (manual) Slight Ovalocytes Slight Sodium Potassium Chloride Carbon Dioxide Anion Gap BUN Creatinine Est GFR ( Amer) Est GFR (Non-Af Amer) POC Glucose (mg/dL) 137 H Random Glucose Calcium Total Bilirubin AST ALT Alkaline Phosphatase Total Protein Albumin Globulin Albumin/Globulin Ratio Blood Type A POSITIVE Antibody Screen Negative 04/11/17 04/11/17 08:18 11:56 WBC RBC Hgb Hct MCV MCH MCHC RDW Plt Count MPV Neut % (Auto) Lymph % (Auto) [place] % (Auto) Eos % (Auto) Baso % (Auto) Neut # Lymph # [place] # Eos # Baso # Neutrophils % (Manual) Lymphocytes % (Manual) Monocytes % (Manual) Platelet Estimate Polychromasia Hypochromasia (manual) Poikilocytosis (manual Anisocytosis (manual) Microcytosis (manual) Macrocytosis (manual) Ovalocytes Sodium 130 L Potassium 4.5 Chloride 92 L Carbon Dioxide 26 Anion Gap 17 BUN 93 H Creatinine 3.3 H Est GFR ( Amer) 16 Est GFR (Non-Af Amer) 13 POC Glucose (mg/dL) 128 H Random Glucose 108 H Calcium 7.7 L Total Bilirubin 0.6 AST 19 ALT 24 Alkaline Phosphatase 121 Total Protein 5.5 L Albumin 2.3 L Globulin 3.2 Albumin/Globulin Ratio 0.7 L Blood Type Antibody Screen Assessment & Plan (1) Bilateral cellulitis of lower leg Status: Acute (2) Gangrene Assessment and Plan: patient has bilateral right and left toes gangrene. Maggots interdigital. Start IV ceftriaxone 1 g once a day daily.04/10/17 Vancomycin 750 mg loading dose today post hemodialysis 04/11/17/ Follow-up by 500 mg mwf x 5doses. Podiatry on case for possible amputation,IF FAMILY AGREES. Status: Acute (3) ESRD (end stage renal disease) on dialysis Assessment and Plan: on hemodialysis MWF Status: Acute (4) Anemia Assessment and Plan: H/H 5.2/16.6 pATIENT GETTING BLOOD TRANSFUSION THIRD UNIT IN HEMODIALYSIS TODAY. Status: Chronic (5) DM2 (diabetes mellitus, type 2) Status: Chronic
[2017-04-11] MEDS ORDERED: Vancomycin 750mg/D5W 150 ml 150 ML IV ONE ×2 (14:30→18:00)
[2017-04-11] MEDS: cefTRIAXone IV 1 gm in Dextros 50 ML IVPB SCH (14:40)
--- NOTE | 2017-04-11 19:22 | CP.PCM.PN ---
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 last month at [facility] and family was told no more options available other than amputation which patient has declined . Objective - Vital Signs/Intake and Output Vital Signs (last 24 hours): Temp Pulse Resp BP Pulse Ox 97.9 F 87 20 128/62 100 04/11/17 18:34 04/11/17 18:34 04/11/17 18:34 04/11/17 18:34 04/11/17 18:34 Intake and Output: 04/11/17 04/12/17 18:59 06:59 Intake Total 710 Balance 710 - Medications Medications: Current Medications Calcium Acetate (Phoslo) 667 mg PO DAILY [facility] Last Admin: 04/11/17 10:07 Dose: Not Given Epoetin Kailash (Procrit) 10,000 unit IV TTS [facility] Hydromorphone HCl (Dilaudid) 0.5 mg IVP Q6H PRN PRN Reason: Pain, severe (8-10) Last Admin: 04/11/17 13:11 Dose: 0.5 mg Ceftriaxone Sodium (Rocephin Iv 1 Gm Duplex) 50 mls @ 50 mls/30 min IVPB Q24H [facility] Last Admin: 04/11/17 14:40 Dose: 50 mls/30 min Vancomycin HCl (Vancocin 750mg/D5w 150 Ml) 150 mls @ 100 mls/hr IV ONCE ONE Stop: 04/11/17 19:29 Last Admin: 04/11/17 18:36 Dose: 100 mls/hr Insulin Human Regular (Novolin R) 0 unit SC ACHS [facility] PRN Reason: Protocol Last Admin: 04/11/17 18:27 Dose: Not Given Vitamin B Complex/Vit C/Folic Acid (Nephro-Nandini) 1 tab PO 0800 [facility] Last Admin: 04/11/17 09:00 Dose: 1 tab Zolpidem Tartrate (Ambien) 5 mg PO HS PRN PRN Reason: Insomnia - Labs Labs: 04/11/17 08:18 04/11/17 08:18 PT 12.5 SECONDS (9.7-12.2) H 04/10/17 17:59 INR 1.1 04/10/17 17:59 APTT 37 SECONDS (21-34) H 04/10/17 17:59 - Extremities Exam Additional comments: O/Gangrene of toes b/l . - Back Exam Additional comments: O/gangrene of toes b/l
--- NOTE | 2017-04-12 00:50 | CP.PCM.HP ---
History of Present Illness - History of Present Illness History of Present Illness: 04/11/17 Patient presents to the ER with son for a complaint of increased generalized pain. As per son, patient had dialysis done yesterday; she goes for Sunday, Sunday, Sunday dialysis. History obtained from son as patient refuses to talk ; son denies patient has had symptoms of fever, chills, nausea, or vomiting.pain in both feet , with maggots , PMH: Anemia, Diabetes, HTN, Hypercholesterolemia, Peripheral Edema, End Stage Renal Disease, Chronic Kidney Disease, Sleep Apnea, TIA (in the ) Present on Admission - Present on Admission Any Indicators Present on Admission: No History of Uncontrolled Diabetes: Yes Decubitus Ulcer Present: Yes (both feet ) Review of Systems - Review of Systems Systems not reviewed;Unavailable: Uncooperative - Constitutional Constitutional: As Per HPI - EENT Eyes: As Per HPI Ears: As Per HPI Nose/Mouth/Throat: As Per HPI - Breasts Breasts: As Per HPI - Cardiovascular Cardiovascular: As Per HPI - Respiratory Respiratory: As Per HPI - Gastrointestinal Gastrointestinal: As Per HPI - Musculoskeletal Musculoskeletal: As Per HPI - Integumentary Integumentary: Change in Nails, Non-Healing Lesions - Neurological Neurological: As Per HPI - Psychiatric Psychiatric: As Per HPI - Endocrine Endocrine: As Per HPI Past Patient History - Infectious Disease Hx of Infectious Diseases: None - Tetanus Immunizations Tetanus Immunization: Unknown - Past Medical History & Family History Past Medical History?: Yes - Past Social History Smoking Status: Never Smoked - CARDIAC Hx Hypercholesterolemia: Yes Hx Hypertension: Yes Hx Peripheral Edema: Yes - PULMONARY Hx Sleep Apnea: Yes - NEUROLOGICAL Hx Transient Ischemic Attacks (TIA): Yes (in the ) - HEENT Hx HEENT Problems: Yes Hx Blind: No Hx Cataracts: Yes 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.) - RENAL Hx Chronic Kidney Disease: Yes Hx Dialysis: Yes Type of Dialysis Access: R permacath Date of Last Dialysis Treatment: 04/09/17 - ENDOCRINE/METABOLIC Hx Diabetes Mellitus Type 2: Yes - HEMATOLOGICAL/ONCOLOGICAL Hx Anemia: Yes Hx Blood Transfusions: Yes Hx Blood Transfusion Reaction: No - INTEGUMENTARY Hx Dermatological Problems: No - MUSCULOSKELETAL/RHEUMATOLOGICAL Hx Musculoskeletal Disorders: No Hx Falls: No - GASTROINTESTINAL Hx Gastrointestinal Disorders: Yes (HX INTESTINAL OBSTUCTION NO SX) Hx Bowel Surgery: Yes (INTESTINAL OBSTRUCTION) - GENITOURINARY/GYNECOLOGICAL Hx Genitourinary Disorders: No - PSYCHIATRIC Hx Psychophysiologic Disorder: No Hx Substance Use: No - SURGICAL HISTORY Hx Surgeries: Yes Hx Arteriovenous Shunt: Yes (06/17/15) Hx Cataract Extraction: Yes Hx Hysterectomy: Yes Hx Open Reduction Internal Fixation: Yes (R HIP) Hx Orthopedic Surgery: Yes (Right hip replacement) Hx Vascular Surgery: Yes Hx Vascular Access Device: Yes (for dialysis) Other/Comment: PERMA CATH RIGHT - ANESTHESIA Hx Anesthesia: Yes Hx Anesthesia Reactions: No Hx Malignant Hyperthermia: No Meds Allergies/Adverse Reactions: Allergies Allergy/AdvReac Type Severity Reaction Status Date / Time No Known Allergies Allergy Verified 02/21/17 16:49 Physical Exam - Constitutional Appears: Well - Head Exam Head Exam: ATRAUMATIC, NORMAL INSPECTION, NORMOCEPHALIC - Eye Exam Eye Exam: EOMI, Normal appearance, PERRL Pupil Exam: NORMAL ACCOMODATION, PERRL - ENT Exam ENT Exam: Mucous Membranes Moist, Normal Exam - Neck Exam Neck exam: Positive for: Normal Inspection - Respiratory Exam Respiratory Exam: Clear to Auscultation Bilateral, NORMAL BREATHING PATTERN - Cardiovascular Exam Cardiovascular Exam: REGULAR RHYTHM - GI/Abdominal Exam GI & Abdominal Exam: Normal Bowel Sounds, Soft. absent: Tenderness - Rectal Exam Rectal Exam: NORMAL INSPECTION - Exam Exam: Circumcision, NORMAL INSPECTION External exam: NORMAL EXTERNAL EXAM Speculum exam: NORMAL SPECULUM EXAM Bimanual exam: NORMAL BIMANUAL EXAM - Extremities Exam Extremities exam: Positive for: pedal edema Additional comments: both feet had gangreen , with maggots - Back Exam Back exam: NORMAL INSPECTION - Neurological Exam Neurological exam: Alert, CN II-XII Intact, Normal Gait, Oriented x3, Reflexes Normal - Psychiatric Exam Psychiatric exam: Normal Affect, Normal Mood - Skin Skin Exam: Dry, Intact, Normal Color, Warm Results - Vital Signs Recent Vital Signs: Last Vital Signs Temp 97.9 F 04/11/17 18:34 Pulse 87 04/11/17 18:34 Resp 20 04/11/17 18:34 BP 128/62 04/11/17 18:34 Pulse Ox 100 04/11/17 18:34 - Labs Result Diagrams: 04/11/17 08:18 04/11/17 08:18 Labs: Laboratory Results - last 24 hr 04/10/17 04/11/17 04/11/17 22:10 06:13 08:18 WBC 14.4 H RBC 2.29 L Hgb 6.9 L Hct 21.1 L MCV 92.2 D MCH 30.1 MCHC 32.7 L RDW 22.7 H Plt Count 214 MPV 9.2 Neut % (Auto) 89.3 H Lymph % (Auto) 6.2 L [place] % (Auto) 4.0 Eos % (Auto) 0.0 Baso % (Auto) 0.5 Neut # 12.9 H Lymph # 0.9 L [place] # 0.6 Eos # 0.0 Baso # 0.1 Neutrophils % (Manual) 91 H Lymphocytes % (Manual) 6 L Monocytes % (Manual) 3 Platelet Estimate Normal Polychromasia Slight Hypochromasia (manual) Moderate Poikilocytosis (manual Slight Anisocytosis (manual) Slight Microcytosis (manual) Slight Macrocytosis (manual) Slight Ovalocytes Slight Sodium Potassium Chloride Carbon Dioxide Anion Gap BUN Creatinine Est GFR ( Amer) Est GFR (Non-Af Amer) POC Glucose (mg/dL) 137 H Random Glucose Calcium Total Bilirubin AST ALT Alkaline Phosphatase Total Protein Albumin Globulin Albumin/Globulin Ratio Blood Type A POSITIVE Antibody Screen Negative 04/11/17 04/11/17 04/11/17 08:18 11:56 17:41 WBC RBC Hgb Hct MCV MCH MCHC RDW Plt Count MPV Neut % (Auto) Lymph % (Auto) [place] % (Auto) Eos % (Auto) Baso % (Auto) Neut # Lymph # [place] # Eos # Baso # Neutrophils % (Manual) Lymphocytes % (Manual) Monocytes % (Manual) Platelet Estimate Polychromasia Hypochromasia (manual) Poikilocytosis (manual Anisocytosis (manual) Microcytosis (manual) Macrocytosis (manual) Ovalocytes Sodium 130 L Potassium 4.5 Chloride 92 L Carbon Dioxide 26 Anion Gap 17 BUN 93 H Creatinine 3.3 H Est GFR ( Amer) 16 Est GFR (Non-Af Amer) 13 POC Glucose (mg/dL) 128 H 105 Random Glucose 108 H Calcium 7.7 L Total Bilirubin 0.6 AST 19 ALT 24 Alkaline Phosphatase 121 Total Protein 5.5 L Albumin 2.3 L Globulin 3.2 Albumin/Globulin Ratio 0.7 L Blood Type Antibody Screen 04/11/17 22:04 WBC RBC Hgb Hct MCV MCH MCHC RDW Plt Count MPV Neut % (Auto) Lymph % (Auto) [place] % (Auto) Eos % (Auto) Baso % (Auto) Neut # Lymph # [place] # Eos # Baso # Neutrophils % (Manual) Lymphocytes % (Manual) Monocytes % (Manual) Platelet Estimate Polychromasia Hypochromasia (manual) Poikilocytosis (manual Anisocytosis (manual) Microcytosis (manual) Macrocytosis (manual) Ovalocytes Sodium Potassium Chloride Carbon Dioxide Anion Gap BUN Creatinine Est GFR ( Amer) Est GFR (Non-Af Amer) POC Glucose (mg/dL) 114 H Random Glucose Calcium Total Bilirubin AST ALT Alkaline Phosphatase Total Protein Albumin Globulin Albumin/Globulin Ratio Blood Type Antibody Screen Assessment & Plan - Assessment and Plan (Free Text) Assessment: .86-year-old female with history of DM, PVD, CAD, ESRD on hemodialysis MWF, who presented to [facility], brought in by son for bilateral lower extremity cellulitis, gangrene and maggots. As per history patient had most maggots removed from her interdigital space off patient's left foot. Patient is being followed by Dr. Kamara as outpatient. History obtained mainly from the chart son and daughter , as patient unable to give any details. Patient has a right arm PICC line in place and also has a hemodialysis right chest wall catheter in place. On admission patient was found to have leukocytosis with WBC count of 14.3 and hemoglobin of 5.2. Patient has received 3 units of packed red blood cells since last night.. had CELLULITIS AND GANGRENE BOTH LOWER EXTREMITIES. 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 last month at [facility] and family was told no more options available other than amputation which patient has declined .
--- NOTE | 2017-04-12 01:06 | CP.PCM.CON ---
History of Present Illness - History of Present Illness History of Present Illness: REASONS FOR CONSULT : ESRD ON HD M W F ANEMIA OF CKD .. SEVERE .. HGB 6.5 .. R/O OTHER CAUSES PT IS WELL KNOWN TO OUR SERVICE .. WITH MMP AND FREQUENT ADMISSIOM ALL EMR REVIEWED .. LABS REVIEWED .. PT WS SEEN AND EXAMINED .. SEEN ON HD 04/11/17 Patient presents to the ER with son for a complaint of increased generalized pain. As per son, patient had dialysis done yesterday; she goes for Sunday, Sunday, Sunday dialysis. History obtained from son as patient refuses to talk ; son denies patient has had symptoms of fever, chills, nausea, or vomiting.pain in both feet , with maggots , PMH: Anemia, Diabetes, HTN, Hypercholesterolemia, Peripheral Edema, End Stage Renal Disease, Chronic Kidney Disease, Sleep Apnea, TIA (in the 1970s) Past Patient History - Infectious Disease Hx of Infectious Diseases: None - Tetanus Immunizations Tetanus Immunization: Unknown - Past Medical History & Family History Past Medical History?: Yes - Past Social History Smoking Status: Never Smoked - CARDIAC Hx Hypercholesterolemia: Yes Hx Hypertension: Yes Hx Peripheral Edema: Yes - PULMONARY Hx Sleep Apnea: Yes - NEUROLOGICAL Hx Transient Ischemic Attacks (TIA): Yes (in the 1970s) - HEENT Hx HEENT Problems: Yes Hx Blind: No Hx Cataracts: Yes 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.) - RENAL Hx Chronic Kidney Disease: Yes Hx Dialysis: Yes Type of Dialysis Access: R permacath Date of Last Dialysis Treatment: 04/09/17 - ENDOCRINE/METABOLIC Hx Diabetes Mellitus Type 2: Yes - HEMATOLOGICAL/ONCOLOGICAL Hx Anemia: Yes Hx Blood Transfusions: Yes Hx Blood Transfusion Reaction: No - INTEGUMENTARY Hx Dermatological Problems: No - MUSCULOSKELETAL/RHEUMATOLOGICAL Hx Musculoskeletal Disorders: No Hx Falls: No - GASTROINTESTINAL Hx Gastrointestinal Disorders: Yes (HX INTESTINAL OBSTUCTION NO SX) Hx Bowel Surgery: Yes (INTESTINAL OBSTRUCTION) - GENITOURINARY/GYNECOLOGICAL Hx Genitourinary Disorders: No - PSYCHIATRIC Hx Psychophysiologic Disorder: No Hx Substance Use: No - SURGICAL HISTORY Hx Surgeries: Yes Hx Arteriovenous Shunt: Yes (06/17/15) Hx Cataract Extraction: Yes Hx Hysterectomy: Yes Hx Open Reduction Internal Fixation: Yes (R HIP) Hx Orthopedic Surgery: Yes (Right hip replacement) Hx Vascular Surgery: Yes Hx Vascular Access Device: Yes (for dialysis) Other/Comment: PERMA CATH RIGHT - ANESTHESIA Hx Anesthesia: Yes Hx Anesthesia Reactions: No Hx Malignant Hyperthermia: No Meds Allergies/Adverse Reactions: Allergies Allergy/AdvReac Type Severity Reaction Status Date / Time No Known Allergies Allergy Verified 02/21/17 16:49 - Medications Medications: Current Medications Calcium Acetate (Phoslo) 667 mg PO DAILY [facility] Last Admin: 04/11/17 10:07 Dose: Not Given Epoetin Kailash (Procrit) 10,000 unit IV TTS [facility] Hydromorphone HCl (Dilaudid) 0.5 mg IVP Q6H PRN PRN Reason: Pain, severe (8-10) Last Admin: 04/11/17 13:11 Dose: 0.5 mg Ceftriaxone Sodium (Rocephin Iv 1 Gm Duplex) 50 mls @ 50 mls/30 min IVPB Q24H [facility] Last Admin: 04/11/17 14:40 Dose: 50 mls/30 min Vancomycin HCl 500 mg/ Sodium (Chloride) 100 mls @ 100 mls/hr IVPB MWF [facility] Stop: 04/13/17 13:59 Insulin Human Regular (Novolin R) 0 unit SC ACHS [facility] PRN Reason: Protocol Last Admin: 04/11/17 22:40 Dose: Not Given Vitamin B Complex/Vit C/Folic Acid (Nephro-Nandini) 1 tab PO 0800 [facility] Last Admin: 04/11/17 09:00 Dose: 1 tab Zolpidem Tartrate (Ambien) 5 mg PO HS PRN PRN Reason: Insomnia Results - Vital Signs Recent Vital Signs: Last Vital Signs Temp 97.9 F 04/11/17 18:34 Pulse 87 04/11/17 18:34 Resp 20 04/11/17 18:34 BP 128/62 04/11/17 18:34 Pulse Ox 100 04/11/17 18:34 - Labs Result Diagrams: 04/11/17 08:18 04/11/17 08:18 Labs: Laboratory Results - last 24 hr 04/10/17 04/11/17 04/11/17 22:10 06:13 08:18 WBC 14.4 H RBC 2.29 L Hgb 6.9 L Hct 21.1 L MCV 92.2 D MCH 30.1 MCHC 32.7 L RDW 22.7 H Plt Count 214 MPV 9.2 Neut % (Auto) 89.3 H Lymph % (Auto) 6.2 L [place] % (Auto) 4.0 Eos % (Auto) 0.0 Baso % (Auto) 0.5 Neut # 12.9 H Lymph # 0.9 L [place] # 0.6 Eos # 0.0 Baso # 0.1 Neutrophils % (Manual) 91 H Lymphocytes % (Manual) 6 L Monocytes % (Manual) 3 Platelet Estimate Normal Polychromasia Slight Hypochromasia (manual) Moderate Poikilocytosis (manual Slight Anisocytosis (manual) Slight Microcytosis (manual) Slight Macrocytosis (manual) Slight Ovalocytes Slight Sodium Potassium Chloride Carbon Dioxide Anion Gap BUN Creatinine Est GFR ( Amer) Est GFR (Non-Af Amer) POC Glucose (mg/dL) 137 H Random Glucose Calcium Total Bilirubin AST ALT Alkaline Phosphatase Total Protein Albumin Globulin Albumin/Globulin Ratio Blood Type A POSITIVE Antibody Screen Negative 04/11/17 04/11/17 04/11/17 08:18 11:56 17:41 WBC RBC Hgb Hct MCV MCH MCHC RDW Plt Count MPV Neut % (Auto) Lymph % (Auto) [place] % (Auto) Eos % (Auto) Baso % (Auto) Neut # Lymph # [place] # Eos # Baso # Neutrophils % (Manual) Lymphocytes % (Manual) Monocytes % (Manual) Platelet Estimate Polychromasia Hypochromasia (manual) Poikilocytosis (manual Anisocytosis (manual) Microcytosis (manual) Macrocytosis (manual) Ovalocytes Sodium 130 L Potassium 4.5 Chloride 92 L Carbon Dioxide 26 Anion Gap 17 BUN 93 H Creatinine 3.3 H Est GFR ( Amer) 16 Est GFR (Non-Af Amer) 13 POC Glucose (mg/dL) 128 H 105 Random Glucose 108 H Calcium 7.7 L Total Bilirubin 0.6 AST 19 ALT 24 Alkaline Phosphatase 121 Total Protein 5.5 L Albumin 2.3 L Globulin 3.2 Albumin/Globulin Ratio 0.7 L Blood Type Antibody Screen 04/11/17 22:04 WBC RBC Hgb Hct MCV MCH MCHC RDW Plt Count MPV Neut % (Auto) Lymph % (Auto) [place] % (Auto) Eos % (Auto) Baso % (Auto) Neut # Lymph # [place] # Eos # Baso # Neutrophils % (Manual) Lymphocytes % (Manual) Monocytes % (Manual) Platelet Estimate Polychromasia Hypochromasia (manual) Poikilocytosis (manual Anisocytosis (manual) Microcytosis (manual) Macrocytosis (manual) Ovalocytes Sodium Potassium Chloride Carbon Dioxide Anion Gap BUN Creatinine Est GFR ( Amer) Est GFR (Non-Af Amer) POC Glucose (mg/dL) 114 H Random Glucose Calcium Total Bilirubin AST ALT Alkaline Phosphatase Total Protein Albumin Globulin Albumin/Globulin Ratio Blood Type Antibody Screen Assessment & Plan - Assessment and Plan (Free Text) Assessment: ESRD ON HD M W F .. SEEN N HD SEVERE ANEMIA .. WAS GIVEN 2 UNITS PRBC ON HD MULTIPLE CO MORBIDITIES P : HD WAS GIVEN ALONG WITH 2 U PRVC .. ALSO EPO 10.000 C/O CURRENT CARE - Date & Time Date: 04/11/17 Time: 16:00
--- NOTE | 2017-04-12 02:04 | CON ---
Requested by the hospitalist's group. LOCATION: She is presently in room 563, bed 8. Requested to see this 86-year-old patient female from originally [place], known to me from many, many years due to congestive heart failure, hypertensive heart disease, atherosclerotic heart disease, diabetes mellitus, previous CVA, and end-stage renal disease on hemodialysis 3 times a week Sunday, Sunday and Fridays who for the last year and a half began to showing signs of severe peripheral vascular disease. This has progressed to the point of bilateral gangrene in both feet despite of several attempts to have reperfusion therapy via angioplasty with stent deployment in the right leg by Dr. Clark in this institution, [facility], about a month and a half ago, angioplasty in the left tibial area, the left leg, was performed and no stent was deployed. Despite of all this, she continue to progressively developed gangrene in both lower extremities and actually cellulitis etc. Main problem is that she refuses to keep the legs elevated and she developed severe edema of both lower extremities which complicates the situation exponentially leading to massive edema, swelling as well as infection. No long ago, she was admitted to this institution with cellulitis and this was taken care expeditiously. The family despite of all attempts here decided to take her to [facility] in [facility] which she was seen by podiatry service as well as vascular surgery. The patient's family so far has declined amputation of the gangrenous area, actually at this point both lower extremities. Few weeks ago, she was involved in pain management in the [facility]. Recently, Dr. Palmer one of our podiatry has been extremely involved in the case and wound care nurse has been going to her house. Yesterday, I had a phone call from her son, Tomi, who I know for a while and he mentioned that his mother's leg was severely swollen, moreover the last 2 weeks, pain, etc., but they could not convinced for her to get the legs elevated. I advised him to call the [facility] and see they could give her some suggestions. In the meantime, wound care nurse arrived in the house as scheduled. She does get it twice a week and found severe infection, maggots, in both feet. This prompted Dr. Palmer to to get involved once again and she arrived in the emergency room last night. As mentioned above, she has all the chronic medical conditions as highlighted above and recently medications have been in the form of losartan 50 mg and amlodipine 5 mg daily for hypertensive control and the family which was very attentive and on top of her and one of her daughter is a nurse and son is crane engineer and they have 24 hours home care. They monitored her blood pressure and they used the medications as feasible. She also is under the care of Dr. Novak for chronic renal disease and she goes to dialysis Sunday, Sunday and Sunday. However over the last several sessions, they have been cutting back the duration of dialysis because she had been very uncomfortable which has been an another issue here. 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 Her actual age is over 88 perhaps 89 to 89 years old according to the family due to some issues during arrival in this country or right before she left [facility], there was some problem with her presentation. Hence, age, at this point, appears only 86 years of age. At this point in time, she is very comfortable in bed. She had been medicated with Dilaudid and the edema has significantly subsided according to the family and podiatry care saw her yesterday and this morning and both feet are nicely dressed. I happened to see the pictures they took yesterday in the emergency room when the physician was washing the feet and they could see multiple maggots in both the feet. Blood pressure appears unremarkable at this point in time ranging from around 120/60, pulse regular about 80 per minute, she is afebrile and O2 saturation unremarkable on room air. The skin is very dull due to chronic renal disease. Evaluation of lower extremities can be referred to the fire claims adjuster's note. She is sedated but reacts to any stimuli at this point in time. Lungs are relatively clear to auscultation, although not follow commands properly. Jugular veins not distended even in supine position. Heart is irregular with minimal systolic murmur which is chronic in nature. Abdomen is scaphoid. No gross organomegaly. Bowel sounds are present, slightly hypoactive. PASTOR; easily arousable, moving when you touch her, but moving all extremities almost equally. Complementary data highlighted by mild leukocytosis, chronic anemia forever; incidentally the family told me that on Sunday her hemoglobin in the dialysis was apparently 12 which is very difficult for me to believe and then on Sunday it was about 6 or so, but there was no evidence of any bleeding in any place. Yesterday it was about close to 6 and this morning it is a little on 7.5 or so, which is pretty much which she has been all along. Sometimes a little high, sometimes little low. Obviously, there is evidence of chronic end-stage renal disease, creatinine in the range of about 3.1, but it was 3.3 or so, potassium is normal. EKG sinus rhythm, some poor R wave progression in inferior wall which appears to be positional. Chest x-ray, the last one was done few weeks ago here with evidence of cardiomegaly and some patchy infiltrates in the right lower lung perry which actually significantly improved, but previous one she has pleural effusion on and off due to heart failure as well as chronic renal disease. ASSESSMENT: 1. Hypertensive heart disease with congestive heart failure, systolic and diastolic at this point in time appears stable. 2. Diabetes mellitus, end-stage renal disease, severe peripheral vascular disease, gangrene both lower extremities. 3. Superimposed infection. PLAN: At this point in time, blood pressure appears to be well controlled, so we will continue to hold losartan and amlodipine, and use suppose as pulse doses as required. Incidentally, I know this lady for years and years and the family as well as the patient have requested all along do not resuscitate, so I will pass this information alone to the medical group. Denis Currie MD
[2017-04-12] MEDS: (Novolin R) Insulin Human Regular 100 units/ml vial SC SCH ×4 (07:34→21:39)
[2017-04-12 07:45] LABS: IRON 60 ug/dL (37-170)
[2017-04-12] MEDS: Multivitamin Vitamin B Complex (Nephro-Vite) Tab PO SCH (08:51)
[2017-04-12 08:53] LABS: FOLATE 15.3 ng/mL
[2017-04-12 10:42] LABS: BASO # 0.1 K/uL (0.0-0.2); BASO % 0.3 % (0.0-2.0); EOS % 0.1 % (0.0-4.0); HEMATOCRIT 30.5 % (34.0-47.0); LYMPH # 0.6 K/uL (1.0-4.3); LYMPH % 3.4 % (20.0-40.0); MEAN CORPUSCULAR HEMOGLOBIN 30.3 pg (27.0-31.0); MEAN CORPUSCULAR HGB CONC 33.6 g/dL (33.0-37.0); MEAN PLATELET VOLUME 8.2 fL (7.2-11.7); MONO # 0.8 K/uL (0.0-0.8); MONO % 4.6 % (0.0-10.0); PLATELET COUNT 149 K/uL (130-400); RED CELL DISTRIBUTION WIDTH 18.5 % (11.5-14.5); WHITE BLOOD COUNT 17.2 K/uL (4.8-10.8)
[2017-04-12 10:46] LABS: MEAN CELL VOLUME 90.1 fL (81.0-99.0)
[2017-04-12] MEDS: Epoetin Alfa 10,000 unit/ml Dialysis IV SCH (10:58)
[2017-04-12 11:06] LABS: NEUTROPHIL 88 % (50-75); REACTIVE LYMPHOCYTES 1 % (0-0); TOTAL CELLS COUNTED 100
--- NOTE | 2017-04-12 11:56 | CP.PCM.PN ---
Subjective - Date & Time of Evaluation Date of Evaluation: 04/12/17 Time of Evaluation: 10:30 - Subjective Subjective: 86 year old female seen at bedside with her daughter in dialysis this morning for B/L leg edema and b/l feet gangrene. Patient appears to be resting comfortably in bed and is in NAD. Patient does not answer questions, but does moan when her feet are touched. Objective - Vital Signs/Intake and Output Vital Signs (last 24 hours): Temp Pulse Resp BP Pulse Ox 97.9 F 72 17 93/46 L 98 04/12/17 09:40 04/12/17 09:40 04/12/17 09:40 04/12/17 11:40 04/12/17 09:40 - Medications Medications: Current Medications Calcium Acetate (Phoslo) 667 mg PO DAILY [facility] Last Admin: 04/12/17 10:05 Dose: Not Given Epoetin Kailash (Procrit) 10,000 unit IV TTS [facility] Last Admin: 04/12/17 10:58 Dose: 10,000 unit Heparin Sodium (Porcine) (Heparin) 3,700 units IVP TTS [facility] Last Admin: 04/12/17 11:41 Dose: 3,700 units Hydromorphone HCl (Dilaudid) 0.5 mg IVP Q6H PRN PRN Reason: Pain, severe (8-10) Last Admin: 04/11/17 13:11 Dose: 0.5 mg Ceftriaxone Sodium (Rocephin Iv 1 Gm Duplex) 50 mls @ 50 mls/30 min IVPB Q24H [facility] Last Admin: 04/11/17 14:40 Dose: 50 mls/30 min Vancomycin HCl 500 mg/ Sodium (Chloride) 100 mls @ 100 mls/hr IVPB MWF [facility] Stop: 04/13/17 13:59 Insulin Human Regular (Novolin R) 0 unit SC ACHS [facility] PRN Reason: Protocol Last Admin: 04/12/17 07:34 Dose: Not Given Vitamin B Complex/Vit C/Folic Acid (Nephro-Nandini) 1 tab PO 0800 [facility] Last Admin: 04/12/17 08:51 Dose: 1 tab Zolpidem Tartrate (Ambien) 5 mg PO HS PRN PRN Reason: Insomnia - Labs Labs: 04/12/17 10:40 08/09/17 08:18 PT 12.5 SECONDS (9.7-12.2) H 04/10/17 17:59 INR 1.1 04/10/17 17:59 APTT 37 SECONDS (21-34) H 04/10/17 17:59 - Constitutional Appears: Well, Non-toxic, No Acute Distress - Extremities Exam Additional comments: Bilateral Lower extremity focused exam: VASC: DP and PT pulses non-palpable b/l. CFT > 3 seconds to all digits. Skin temperature cold to cold from mid-leg to distal toes. +2 pitting edema noted b/ l legs DERM: Right foot- Chronic dry gangrenous changes noted to entirety of first and second digits. First interspace has wound with rivers, soupy tissue noted. Probe to bone is positive at this site. Abrasion noted to extend dorsally from the wound with base >90% fibrotic. Left foot- Chronic dry gangrenous changes noted to entirety of left hallux, distal half of second digit, distal tip of third digit and plantarly on fourth and fifth digits. Demarcation of chronic ischemic changes noted to entire distal half of foot consisting of superficial abrasions and fibrotic skin changes. No open lesions noted at this time. Skin is mildly macerated at the dorsum of the foot. NEURO: unable to assess due to patient's unresponsiveness ORTHO: Severe pain on palpation diffusely b/l LE - Neurological Exam Neurological Exam: Alert, Awake, Oriented x3 - Psychiatric Exam Psychiatric exam: Normal Affect, Normal Mood Assessment and Plan - Assessment and Plan (Free Text) Assessment: 86 year old female seen at bedside with LE pitting edema and gangrene to feet b/ l secondary to DM, PVD Plan: Patient examined and evaluated at bedside Patient discussed in detail with attending, Dr. Kamara Chart, labs, vitals reviewed (afebrile; WBC @ 17.2 as of today) Feet dressed with betadine gauze, 4x4, kerlix Patient to continue IV abx per ID Podiatry will continue to follow patient while in house
[2017-04-12] MEDS: HYDROmorphone 0.5 mg/0.5 ml ISec IVP PRN ×2 (12:39→18:32)
[2017-04-12] MEDS: cefTRIAXone IV 1 gm in Dextros 50 ML IVPB SCH (13:39)
--- NOTE | 2017-04-12 17:50 | CP.PCM.PN ---
Subjective - Date & Time of Evaluation Date of Evaluation: 04/12/17 Time of Evaluation: 16:30 - Subjective Subjective: RENEWABLE ENERGY PROJECT MANAGER NOTES D/W WITH DR. MATAMOROS DURATION OF ANTIBIOTICS, RECOMMENDS TO CONTINUE VANCOMYCIN 500 MG MWF POST HD X 5 DOSES AND STOP ROCEPHIN IN AM AND GIVE FIRST DOSE OF GENTAMYCIN 80 MG POST HD TMW AND CONTINUE 50 MG IVBP POST HD X 5 MORE DAYS Objective - Vital Signs/Intake and Output Vital Signs (last 24 hours): Temp Pulse Resp BP Pulse Ox 97.6 F 79 16 105/62 97 04/12/17 12:10 04/12/17 12:42 04/12/17 12:10 04/12/17 12:42 04/12/17 12:10 - Medications Medications: Current Medications Calcium Acetate (Phoslo) 667 mg PO DAILY [facility] Last Admin: 04/12/17 10:05 Dose: Not Given Epoetin Kailash (Procrit) 10,000 unit IV TTS [facility] Last Admin: 04/12/17 10:58 Dose: 10,000 unit Heparin Sodium (Porcine) (Heparin) 3,700 units IVP TTS [facility] Last Admin: 04/12/17 11:41 Dose: 3,700 units Hydromorphone HCl (Dilaudid) 0.5 mg IVP Q6H PRN PRN Reason: Pain, severe (8-10) Last Admin: 04/12/17 12:39 Dose: 0.5 mg Ceftriaxone Sodium (Rocephin Iv 1 Gm Duplex) 50 mls @ 50 mls/30 min IVPB Q24H [facility] Last Admin: 04/12/17 13:39 Dose: 50 mls/30 min Vancomycin HCl 500 mg/ Sodium (Chloride) 100 mls @ 100 mls/hr IVPB MWF [facility] Stop: 04/13/17 13:59 Insulin Human Regular (Novolin R) 0 unit SC ACHS [facility] PRN Reason: Protocol Last Admin: 04/12/17 16:41 Dose: Not Given Vitamin B Complex/Vit C/Folic Acid (Nephro-Nandini) 1 tab PO 0800 [facility] Last Admin: 04/12/17 08:51 Dose: 1 tab Zolpidem Tartrate (Ambien) 5 mg PO HS PRN PRN Reason: Insomnia - Labs Labs: 04/12/17 10:40 04/11/17 08:18 PT 12.5 SECONDS (9.7-12.2) H 04/10/17 17:59 INR 1.1 04/10/17 17:59 APTT 37 SECONDS (21-34) H 04/10/17 17:59
[2017-04-12] MEDS ORDERED: cefTRIAXone IV 1 gm in Dextros 50 ML IVPB SCH (17:51)
--- NOTE | 2017-04-12 18:36 | CP.PCM.PN ---
Subjective - Date & Time of Evaluation Date of Evaluation: 04/12/17 Time of Evaluation: 16:00 - Subjective Subjective: SEEN ON RENAL F/U LYING FLAT IN BED RESTING UPON STIMULATION SHE STARTED MOANING AND GROANING HAD HD YESTERDAY .. TOLERTED WELL L E EDEMA MUCH BETTER RECIEVED 2 UNITS PRBC ON HD Objective - Vital Signs/Intake and Output Vital Signs (last 24 hours): Temp Pulse Resp BP Pulse Ox 97.4 F L 82 18 131/64 97 04/12/17 17:56 04/12/17 17:56 04/12/17 17:56 04/12/17 17:56 04/12/17 17:56 - Medications Medications: Current Medications Calcium Acetate (Phoslo) 667 mg PO DAILY [facility] Last Admin: 04/12/17 10:05 Dose: Not Given Epoetin Kailash (Procrit) 10,000 unit IV TTS [facility] Last Admin: 04/12/17 10:58 Dose: 10,000 unit Heparin Sodium (Porcine) (Heparin) 3,700 units IVP TTS [facility] Last Admin: 04/12/17 11:41 Dose: 3,700 units Hydromorphone HCl (Dilaudid) 0.5 mg IVP Q6H PRN PRN Reason: Pain, severe (8-10) Last Admin: 04/12/17 18:32 Dose: 0.5 mg Vancomycin HCl 500 mg/ Sodium (Chloride) 100 mls @ 100 mls/hr IVPB MWF [facility] Stop: 04/13/17 13:59 Gentamicin Sulfate 80 mg/ (Sodium Chloride) 102 mls @ 100 mls/hr IVPB Q24H [facility] Stop: 04/13/17 19:02 Ceftriaxone Sodium (Rocephin Iv 1 Gm Duplex) 50 mls @ 50 mls/30 min IVPB DAILY [facility] Stop: 04/13/17 10:29 Insulin Human Regular (Novolin R) 0 unit SC ACHS [facility] PRN Reason: Protocol Last Admin: 04/12/17 16:41 Dose: Not Given Vitamin B Complex/Vit C/Folic Acid (Nephro-Nandini) 1 tab PO 0800 [facility] Last Admin: 04/12/17 08:51 Dose: 1 tab Zolpidem Tartrate (Ambien) 5 mg PO HS PRN PRN Reason: Insomnia - Labs Labs: 04/12/17 10:40 04/11/17 08:18 PT 12.5 SECONDS (9.7-12.2) H 04/10/17 17:59 INR 1.1 04/10/17 17:59 APTT 37 SECONDS (21-34) H 04/10/17 17:59 Assessment and Plan - Assessment and Plan (Free Text) Assessment: ESRD ON HD M W F .. TO BE C/O ANEMIA OF CKD .. RECIEVED 2 UNITS OF PRBC ON HD YESTERDAY MULTIPLE CO MORBIDITIES C/O CURRENT CARE
--- NOTE | 2017-04-12 20:33 | CP.PCM.PN ---
Subjective - Date & Time of Evaluation Date of Evaluation: 04/12/17 Time of Evaluation: 20:33 - Subjective Subjective: CHIEF COMPLAINTS TODAY : AFEBRILE s/p HD TODAY COMFORTABLE,MOANS AND GROANS ON TOUCH ROS. - OBSERVED HEENT : N. Resp : No cough, wheezing ,pleuritic CP ,or hemoptysis Cardio : No anginal CP, PND, orthopnea, palpitation GI : No abd.pain, n/v ,diarrhea or GI bleeding . PUBLIC POLICY ASSOCIATE : No headache, vertigo, focal deficit. Musculoskel : No joint swelling , Derm : No rash Psych : Normal affect. Ext : BILATERAL LOWER EXTREMITIES AND DRESSINGS/TOES GANGRENOUS. PE. Pt. RESTING in no distress. V.S As noted in the chart Head ,ear nose,throat and eyes : Normal. Neck : Supple with normal carotids. Lungs: Clear air entry. Heart : S1 & S2 normal with S4. No murmur. Abd : Soft non tender with normal bowel sounds. Neuro : Moves all ext. with no localized deficit. Ext : BILATERAL LOWER EXTREMITIES IN DRESSING/BILATERAL TOES GANGRENOUS Derm : No rashes or decubitus ulcer. LABS/RADIOLOGY: wbc 17.2, h&h 10.2/30.5 S/P 2 UNITS PACKED RED BLOOD CELLS YESTERDAY CREATININE 3.3/bun 93 LFT N bLOOD CULTURES 04/10/17-VE FOR 24 HOURS. : Objective - Vital Signs/Intake and Output Vital Signs (last 24 hours): Temp Pulse Resp BP Pulse Ox 97.4 F L 82 18 131/64 97 04/12/17 17:56 04/12/17 17:56 04/12/17 17:56 04/12/17 17:56 04/12/17 17:56 - Medications Medications: Current Medications Calcium Acetate (Phoslo) 667 mg PO DAILY [facility] Last Admin: 04/12/17 10:05 Dose: Not Given Epoetin Kailash (Procrit) 10,000 unit IV TTS [facility] Last Admin: 04/12/17 10:58 Dose: 10,000 unit Ergocalciferol (Drisdol 50,000 Intl Units Cap) 1 cap PO Q7D [facility] Heparin Sodium (Porcine) (Heparin) 3,700 units IVP TTS [facility] Last Admin: 04/12/17 11:41 Dose: 3,700 units Hydromorphone HCl (Dilaudid) 0.5 mg IVP Q6H PRN PRN Reason: Pain, severe (8-10) Last Admin: 04/12/17 18:32 Dose: 0.5 mg Vancomycin HCl 500 mg/ Sodium (Chloride) 100 mls @ 100 mls/hr IVPB MWF [facility] Stop: 04/13/17 13:59 Gentamicin Sulfate 80 mg/ (Sodium Chloride) 102 mls @ 100 mls/hr IVPB Q24H [facility] Stop: 04/13/17 19:02 Ceftriaxone Sodium (Rocephin Iv 1 Gm Duplex) 50 mls @ 50 mls/30 min IVPB DAILY [facility] Stop: 04/13/17 10:29 Insulin Human Regular (Novolin R) 0 unit SC ACHS [facility] PRN Reason: Protocol Last Admin: 04/12/17 16:41 Dose: Not Given Vitamin B Complex/Vit C/Folic Acid (Nephro-Nandini) 1 tab PO 0800 [facility] Last Admin: 04/12/17 08:51 Dose: 1 tab Zolpidem Tartrate (Ambien) 5 mg PO HS PRN PRN Reason: Insomnia - Labs Labs: 04/12/17 10:40 04/11/17 08:18 PT 12.5 SECONDS (9.7-12.2) H 04/10/17 17:59 INR 1.1 04/10/17 17:59 APTT 37 SECONDS (21-34) H 04/10/17 17:59 Assessment and Plan (1) Bilateral cellulitis of lower leg Status: Acute (2) Gangrene Assessment & Plan: patient has bilateral right and left toes gangrene. Maggots interdigital. ON IV ceftriaxone 1 g once a day daily.04/10/17 Vancomycin 750 mg loading dose today post hemodialysis 04/11/17/ Follow-up by 500 mg mwf x 5doses. Podiatry RECOMMENDS AMPUTATION. DAUGHTER REFUSING. CASE DISCUSSED WITH DRIER TENDER NAPHTHALENE.MS MANCILLA.PATIENT FOR SUBACUTE REHABILITATION. PATIENT HAS NO iv ACCESS , THEREFORE PATIENT CAN BE SWITCHED TO iv GENTAMICIN 80 MG LOADING DOSE POST HEMODIALYSIS IN A.M. fOLLOWED BY 50 MG POST EACH HEMODIALYSIS MWF 5 DOSES ALSO CONTINUE iv VANCOMYCIN 500 MG MWF X 5 DOSES. fOLLOW-UP BLOOD CULTURES TO ADJUST ANTIBIOTICS. PATIENT WILL NEED REEVALUATION OF iv ANTIBIOTICS AFTER ABOVE COURSE COMPLETED. PATIENT HAS BILATERAL ISCHEMIC GANGRENOUS TOES/PVD AND WOULD BE BETTER OFF WITH BKA/AKA WE'LL FOLLOW THE PATIENT WHILE IN HOUSE. Status: Acute (3) ESRD (end stage renal disease) on dialysis Assessment & Plan: ON HEMODIALYSIS MWF. GOT EXTRA HEMODIALYSIS TODAY Status: Acute (4) Anemia Assessment & Plan: h&h 10.2/30.5 S/P 2UNITS PRBC. Status: Chronic (5) DM2 (diabetes mellitus, type 2) Status: Chronic
[2017-04-12] MEDS: Ergocalciferol 50,000 Intl Units Cap PO SCH (21:13)
[2017-04-13] MEDS: (Novolin R) Insulin Human Regular 100 units/ml vial SC SCH ×4 (06:45→21:26)
[2017-04-13 07:21] LABS: HEMATOCRIT 32.7 % (34.0-47.0); MEAN CELL VOLUME 91.4 fL (81.0-99.0); MEAN CORPUSCULAR HEMOGLOBIN 30.5 pg (27.0-31.0); MEAN CORPUSCULAR HGB CONC 33.4 g/dL (33.0-37.0); MEAN PLATELET VOLUME 8.7 fL (7.2-11.7); RED CELL DISTRIBUTION WIDTH 18.1 % (11.5-14.5); WHITE BLOOD COUNT 18.9 K/uL (4.8-10.8)
[2017-04-13 07:31] LABS: POTASSIUM 3.5 mmol/L (3.6-5.2)
[2017-04-13 07:34] LABS: CALCIUM 7.9 mg/dl (8.6-10.4)
[2017-04-13 08:03] LABS: THYROID STIMULATING HORMONE 22.5 mIU/L (0.46-4.68)
[2017-04-13] MEDS: Multivitamin Vitamin B Complex (Nephro-Vite) Tab PO SCH (09:09)
[2017-04-13] MEDS: HYDROmorphone 0.5 mg/0.5 ml ISec IVP PRN ×3 (09:13→22:03)
[2017-04-13] MEDS ORDERED: Potassium Chloride 20 mEq ER Tab PO ONE (09:15)
[2017-04-13] MEDS ORDERED: cefTRIAXone IV 1 gm in Dextros 50 ML IVPB SCH (10:00)
--- NOTE | 2017-04-13 12:33 | PN ---
DATE: Room 563, Bed A. SUBJECTIVE: I saw her this evening around 6 o'clock or so. She was actually sleeping relatively comfortably and then she woke up and recognized me, but then began complaining of severe pain in the left foot and she was looking for her daughter, Maribel. Within few minutes Maribel came, she came to bring her some food, etc., and we had a very long conversation about her mother and severe pain that she requires narcotic medications basically every couple of hours or so. The big discussion concerning is the way to try to correct this situation. She appeared in no distress otherwise. She is breathing quite comfortably and according to the daughter, who was conversing with her in telida language, they speak Turkmen, I do not know if Mandarin and they are from [place]. There is no shortness of breath. No cardiopulmonary symptoms or complaints. Rest of the review of systems otherwise negative. No nausea, vomiting, or diarrhea. PHYSICAL EXAMINATION GENERAL: Alert, in pain, almost around the clock as soon as the pain medication wears off. She underwent dialysis yesterday and also today, again they are doing short dialysis. VITAL SIGNS: Relatively stable. Blood pressure is normal to the low side. Respiratory rate and heart rate, etc., all within physiological parameters. LUNGS: Relatively clear. CARDIOPULMONARY: From the cardiopulmonary view point, the jugular veins do not appear distended. Heart sounds normal in intensity and regular. ABDOMEN: Remains relatively benign. Hemodialysis catheter in the right infraclavicular area, it appears very clean, but there is an AV shunt in the left arm, which she does not allow anybody to use it, very rarely. It appears intact also. LABORATORY DATA: Reviewed. Hemoglobin around 10 or so. Slight leukocytosis as expected due to the gangrene and cellulitis in both feet. Nothing spectacular in the lab data after the situation. ASSESSMENT: Hypertensive cardiovascular disease with congestive heart failure compensated at this point in time, atherosclerotic heart disease, diabetes mellitus, severe peripheral vascular disease with gangrene in both feet. She is receiving antibiotic under the care of the ID mergers and acquisitions consultant. The medical group has the situation very well organized and controlled. Medication for pain as required. I had a very long conversation with daughter, Maribel Caldwell, concerning this painful situation and perhaps finally we should proceed through this bilateral amputation of lower extremities to control the pain, flatulence, etc. The mother has been reluctant and declined overtime such intervention. I told Maribel to speak with her other sister, who lives in [place] as well as her son Christophe, get together and get back to me and see if we have other solution of this situation. Denis Currie MD
--- NOTE | 2017-04-13 17:30 | CP.PCM.PN ---
Objective - Vital Signs/Intake and Output Vital Signs (last 24 hours): Temp Pulse Resp BP Pulse Ox 97.9 F 70 20 127/51 L 99 04/13/17 16:00 04/13/17 16:00 04/13/17 16:00 04/13/17 16:00 04/13/17 16:00 Intake and Output: 04/13/17 04/13/17 06:59 18:59 Intake Total 240 Balance 240 - Medications Medications: Current Medications Calcium Acetate (Phoslo) 667 mg PO DAILY [facility] Last Admin: 04/13/17 09:09 Dose: 667 mg Epoetin Kailash (Procrit) 10,000 unit IV TTS [facility] Last Admin: 04/12/17 10:58 Dose: 10,000 unit Ergocalciferol (Drisdol 50,000 Intl Units Cap) 1 cap PO Q7D [facility] Last Admin: 04/12/17 21:13 Dose: 1 cap Heparin Sodium (Porcine) (Heparin) 3,700 units IVP TTS [facility] Last Admin: 04/12/17 11:41 Dose: 3,700 units Hydromorphone HCl (Dilaudid) 0.5 mg IVP Q6H PRN PRN Reason: Pain, severe (8-10) Last Admin: 04/13/17 15:58 Dose: 0.5 mg Gentamicin Sulfate 80 mg/ (Sodium Chloride) 102 mls @ 100 mls/hr IVPB Q24H [facility] Stop: 04/13/17 19:02 Insulin Human Regular (Novolin R) 0 unit SC ACHS [facility] PRN Reason: Protocol Last Admin: 04/13/17 12:54 Dose: Not Given Vitamin B Complex/Vit C/Folic Acid (Nephro-Nandini) 1 tab PO 0800 [facility] Last Admin: 04/13/17 09:09 Dose: 1 tab Zolpidem Tartrate (Ambien) 5 mg PO HS PRN PRN Reason: Insomnia - Labs Labs: 04/13/17 07:10 04/13/17 07:10 PT 12.5 SECONDS (9.7-12.2) H 04/10/17 17:59 INR 1.1 04/10/17 17:59 APTT 37 SECONDS (21-34) H 04/10/17 17:59
--- NOTE | 2017-04-13 18:20 | CP.PCM.PN ---
Subjective - Date & Time of Evaluation Date of Evaluation: 04/13/17 Time of Evaluation: 18:16 - Subjective Subjective: 86 year old female patient seen and evaluated at bedside with [facility], Yamini Yoon. Patient seen sleeping in bed comfortably at the time of visit, NAD however increased delirium since admission. Patient is a poor historian. Patient denies pain to her feet today. Patient denies any acute overnight events. Patient denies N/V/F/D/C/SOB. No other pedal complaints at this time. Objective - Vital Signs/Intake and Output Vital Signs (last 24 hours): Temp Pulse Resp BP Pulse Ox 97.9 F 70 20 127/51 L 99 04/13/17 16:00 04/13/17 16:00 04/13/17 16:00 04/13/17 16:00 04/13/17 16:00 Intake and Output: 04/13/17 04/13/17 06:59 18:59 Intake Total 240 Balance 240 - Medications Medications: Current Medications Calcium Acetate (Phoslo) 667 mg PO DAILY [facility] Last Admin: 04/13/17 09:09 Dose: 667 mg Epoetin Kailash (Procrit) 10,000 unit IV TTS [facility] Last Admin: 04/12/17 10:58 Dose: 10,000 unit Ergocalciferol (Drisdol 50,000 Intl Units Cap) 1 cap PO Q7D [facility] Last Admin: 04/12/17 21:13 Dose: 1 cap Heparin Sodium (Porcine) (Heparin) 3,700 units IVP TTS [facility] Last Admin: 04/12/17 11:41 Dose: 3,700 units Hydromorphone HCl (Dilaudid) 0.5 mg IVP Q6H PRN PRN Reason: Pain, severe (8-10) Last Admin: 04/13/17 15:58 Dose: 0.5 mg Gentamicin Sulfate 80 mg/ (Sodium Chloride) 102 mls @ 100 mls/hr IVPB Q24H [facility] Stop: 04/13/17 19:02 Last Admin: 04/13/17 17:43 Dose: 100 mls/hr Insulin Human Regular (Novolin R) 0 unit SC ACHS [facility] PRN Reason: Protocol Last Admin: 04/13/17 17:47 Dose: Not Given Vitamin B Complex/Vit C/Folic Acid (Nephro-Nandini) 1 tab PO 0800 [facility] Last Admin: 04/13/17 09:09 Dose: 1 tab Zolpidem Tartrate (Ambien) 5 mg PO HS PRN PRN Reason: Insomnia - Labs Labs: 04/13/17 07:10 04/13/17 07:10 PT 12.5 SECONDS (9.7-12.2) H 04/10/17 17:59 INR 1.1 04/10/17 17:59 APTT 37 SECONDS (21-34) H 04/10/17 17:59 - Constitutional Appears: Well, Non-toxic, No Acute Distress - Extremities Exam Additional comments: Bilateral Lower extremity focused exam: VASC: DP and PT pulses non-palpable b/l. CFT > 3 seconds to all digits. Skin temperature cold to cold from mid-leg to distal toes. +2 pitting edema noted b/ l legs DERM: Right foot- Chronic dry gangrenous changes noted to entirety of first and second digits. First interspace has wound with rivers, soupy tissue noted. Probe to bone is positive at this site. Abrasion noted to extend dorsally from the wound with base >90% fibrotic. Skin appears friable with visible ischemic changes. Left foot- Chronic dry gangrenous changes noted to entirety of left hallux, distal half of second digit, distal tip and base of third digit, and increase in gangrenous changes on distal aspects of fourth and fifth digits. Demarcation of chronic ischemic changes noted to entire distal half of foot consisting of superficial abrasions and possible exposed tendon on dorsum of 3rd metatarsal. Skin appears friable with visible ischemic changes. NEURO: unable to assess due to patient's unresponsiveness ORTHO: Mild pain on palpation diffusely b/l LE - Neurological Exam Neurological Exam: Alert, Awake - Psychiatric Exam Psychiatric exam: Normal Affect Assessment and Plan - Assessment and Plan (Free Text) Assessment: 86 year old female seen at bedside with LE pitting edema and gangrene to feet b/ l secondary to DM, PVD Plan: Patient examined and evaluated at bedside Patient discussed in detail with attending, Dr. Kamara Chart, labs, vitals reviewed (afebrile; WBC trending upwards @ 18.9 as of today , increased from 17.2 yesterday) Feet dressed with betadine gauze, 4x4, kerlix Patient to continue IV abx per ID Continue pain mgmt per medicine Patient and family refuse surgical intevention at this time Social work consulted for hospice evaluation Podiatry will continue to follow patient while in house
--- NOTE | 2017-04-14 01:57 | CP.PCM.PN ---
Subjective - Date & Time of Evaluation Date of Evaluation: 04/12/17 Time of Evaluation: 11:30 - Subjective Subjective: LYING FLAT IN BED RESTING UPON STIMULATION SHE STARTED MOANING AND GROANING HAD HD YESTERDAY .. TOLERTED WELL L E EDEMA MUCH BETTER RECIEVED 2 UNITS PRBC ON HD family around Objective - Vital Signs/Intake and Output Vital Signs (last 24 hours): Temp Pulse Resp BP Pulse Ox 97.5 F L 69 20 145/67 100 04/13/17 23:40 04/14/17 00:53 04/13/17 23:40 04/13/17 23:40 04/13/17 23:40 - Medications Medications: Current Medications Calcium Acetate (Phoslo) 667 mg PO DAILY [facility] Last Admin: 04/13/17 09:09 Dose: 667 mg Epoetin Kailash (Procrit) 10,000 unit IV TTS [facility] Last Admin: 04/12/17 10:58 Dose: 10,000 unit Ergocalciferol (Drisdol 50,000 Intl Units Cap) 1 cap PO Q7D [facility] Last Admin: 04/12/17 21:13 Dose: 1 cap Heparin Sodium (Porcine) (Heparin) 3,700 units IVP TTS [facility] Last Admin: 04/12/17 11:41 Dose: 3,700 units Hydromorphone HCl (Dilaudid) 0.5 mg IVP Q6H PRN PRN Reason: Pain, severe (8-10) Last Admin: 04/13/17 22:03 Dose: 0.5 mg Insulin Human Regular (Novolin R) 0 unit SC ACHS [facility] PRN Reason: Protocol Last Admin: 04/13/17 21:26 Dose: Not Given Levothyroxine Sodium (Synthroid) 50 mcg PO DAILY@0630 [facility] Vitamin B Complex/Vit C/Folic Acid (Nephro-Nandini) 1 tab PO 0800 [facility] Last Admin: 04/13/17 09:09 Dose: 1 tab Zolpidem Tartrate (Ambien) 5 mg PO HS PRN PRN Reason: Insomnia - Labs Labs: 04/13/17 07:10 04/13/17 07:10 PT 12.5 SECONDS (9.7-12.2) H 04/10/17 17:59 INR 1.1 04/10/17 17:59 APTT 37 SECONDS (21-34) H 04/10/17 17:59 - Constitutional Appears: Well - Head Exam Head Exam: ATRAUMATIC, NORMAL INSPECTION, NORMOCEPHALIC - Eye Exam Eye Exam: EOMI, Normal appearance, PERRL Pupil Exam: NORMAL ACCOMODATION, PERRL - ENT Exam ENT Exam: Mucous Membranes Moist, Normal Exam - Neck Exam Neck Exam: Full ROM, Normal Inspection. absent: Lymphadenopathy - Respiratory Exam Respiratory Exam: Clear to Ausculation Bilateral, NORMAL BREATHING PATTERN - Cardiovascular Exam Cardiovascular Exam: REGULAR RHYTHM, +S1, +S2. absent: Murmur - GI/Abdominal Exam GI & Abdominal Exam: Soft, Normal Bowel Sounds. absent: Tenderness - Rectal Exam Rectal Exam: NORMAL INSPECTION - Exam Exam: Circumcision, NORMAL INSPECTION External exam: NORMAL EXTERNAL EXAM Speculum exam: NORMAL SPECULUM EXAM Bimanual exam: NORMAL BIMANUAL EXAM - Extremities Exam Extremities Exam: Full ROM. absent: Joint Swelling, Pedal Edema Additional comments: feet had dressing - Back Exam Back Exam: NORMAL INSPECTION - Neurological Exam Neurological Exam: Alert, Awake, CN II-XII Intact, Normal Gait, Oriented x3 - Psychiatric Exam Psychiatric exam: Normal Affect, Normal Mood - Skin Skin Exam: Dry, Intact, Normal Color, Warm Assessment and Plan - Assessment and Plan (Free Text) Assessment: A/P (1) Bilateral cellulitis of lower leg Status: Acute (2) Gangrene Assessment & Plan: patient has bilateral right and left toes gangrene. Maggots interdigital. ON IV ceftriaxone 1 g once a day daily.04/10/17 Vancomycin 750 mg loading dose today post hemodialysis 04/11/17/ Follow-up by 500 mg mwf x 5doses. Podiatry RECOMMENDS AMPUTATION. DAUGHTER REFUSING. CASE DISCUSSED WITH BIOSTATISTICIAN.MS MANCILLA.PATIENT FOR SUBACUTE REHABILITATION. PATIENT HAS NO iv ACCESS , THEREFORE PATIENT CAN BE SWITCHED TO iv GENTAMICIN 80 MG LOADING DOSE POST HEMODIALYSIS IN A.M. fOLLOWED BY 50 MG POST EACH HEMODIALYSIS MWF 5 DOSES ALSO CONTINUE iv VANCOMYCIN 500 MG MWF X 5 DOSES. fOLLOW-UP BLOOD CULTURES TO ADJUST ANTIBIOTICS. PATIENT WILL NEED REEVALUATION OF iv ANTIBIOTICS AFTER ABOVE COURSE COMPLETED. PATIENT HAS BILATERAL ISCHEMIC GANGRENOUS TOES/PVD AND WOULD BE BETTER OFF WITH BKA/AKA WE'LL FOLLOW THE PATIENT WHILE IN HOUSE. Status: Acute (3) ESRD (end stage renal disease) on dialysis Assessment & Plan: ON HEMODIALYSIS MWF. GOT EXTRA HEMODIALYSIS TODAY Status: Acute (4) Anemia Assessment & Plan: h&h 10.2/30.5 S/P 2UNITS PRBC. Status: Chronic (5) DM2 (diabetes mellitus, type 2)
--- NOTE | 2017-04-14 04:03 | PN ---
DATE: 04/13/2017 SUBJECTIVE: The patient is an 86-year-old female. The patient is seen and examined on the bedside, daughter is on the bedside also, complaining about pain in the feet, getting pain medication [id number] and do not have bowel movements as the side effect of narcotics. Lengthy family discussion done with the patient and the patient's daughter. Daughter did translation for me and Podiatry indicated amputation of both gangrenous toes. The patient and family refusing even having maggots in between the digits. PHYSICAL EXAMINATION: VITAL SIGNS: Temperature is 97.9, pulse 70, blood pressure 127/51, and respiratory rate 20. HEENT: Head is normocephalic, atraumatic. Eyes open and PERRLA, extraocular muscles intact. Conjunctivae clear. Nose patent. Mucous membrane moist. NECK: Supple. No carotid bruit. No JVD or thyromegaly. CHEST: Bilaterally symmetrical. HEART: S1 and S2, positive. LUNGS: Clear to auscultation. ABDOMEN: Soft. Bowel sounds present. No organomegaly. EXTREMITIES: No edema, no cyanosis, but both feet has dressing and has gangrenous toes. NEUROLOGIC: The patient is awake and alert. Moving all 4 extremities. MEDICATIONS: Ambien, Dilaudid, vitamin D, heparin, Nephro, insulin and Procrit. LABORATORY DATA: White blood cell 18.9; hemoglobin 10.9, on admission it was 5.2; hematocrit 32.7, and platelets 186. Sodium 135, potassium 3.5, BUN 36, creatinine 2.2, glucose 120, and calcium 7.9. TSH 22.5. ASSESSMENT AND PLAN: Ms. Paulette Mcmahan is an 86-year-old lady with history of leukocytosis due to infected toes; anemia, status post blood transfusion, getting Procrit; hypokalemia, replaced; renal insufficiency, getting dialysis; hypocalcemia; hypothyroidism, needs the adjustment of levothyroxine. Seen by Dr. Pilar Funk, Infectious Disease and Podiatry and Dr. Lyndon Hernandez, store detective. The patient is found to be very noncompliant. Once in a while, the patient is delirious. The patient is a poor historian, is completely in denial. Gangrene of both toes, severe peripheral vascular disease. Feet dressing done by Podiatry. Dr. Denis Currie have length of time discussed with the patient about the surgery. 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 Atherosclerotic heart disease, receiving antibiotics as per ID. We all had long, long, long conversation with the daughter and with the patient and daughter informed that she has to discuss with her sister and brothers about her mother's condition. Mother is reluctant and declined over time such intervention like amputation. Gastrointestinal and deep venous thrombosis prophylaxis. Repeat labs. We will follow up. Rosalinda Onofre MD
[2017-04-14] MEDS: Levothyroxine 50 MCG TAB PO SCH (05:36)
[2017-04-14] MEDS: metroNIDAZOLE IV 500 mg/100 ml 250 MG in Premixed IV 1 EA IVPB SCH ×3 (05:36→21:16)
[2017-04-14] MEDS: (Novolin R) Insulin Human Regular 100 units/ml vial SC SCH ×4 (07:08→21:33)
--- NOTE | 2017-04-14 07:55 | CP.PCM.PN ---
Subjective - Date & Time of Evaluation Date of Evaluation: 04/14/17 Time of Evaluation: 07:45 - Subjective Subjective: pt seen for gangrene of feet chronic in nature .Family and Pt decline amputation.. Pt seen with resident. Objective - Vital Signs/Intake and Output Vital Signs (last 24 hours): Temp Pulse Resp BP Pulse Ox 97.8 F 73 18 142/57 L 100 04/14/17 07:00 04/14/17 07:00 04/14/17 07:00 04/14/17 07:00 04/14/17 07:00 Intake and Output: 04/14/17 04/14/17 06:59 18:59 Intake Total 290 Balance 290 - Medications Medications: Current Medications Calcium Acetate (Phoslo) 667 mg PO DAILY [facility] Last Admin: 04/13/17 09:09 Dose: 667 mg Epoetin Kailash (Procrit) 10,000 unit IV TTS [facility] Last Admin: 04/12/17 10:58 Dose: 10,000 unit Ergocalciferol (Drisdol 50,000 Intl Units Cap) 1 cap PO Q7D [facility] Last Admin: 04/12/17 21:13 Dose: 1 cap Heparin Sodium (Porcine) (Heparin) 3,700 units IVP TTS [facility] Last Admin: 04/12/17 11:41 Dose: 3,700 units Hydromorphone HCl (Dilaudid) 0.5 mg IVP Q6H PRN PRN Reason: Pain, severe (8-10) Last Admin: 04/13/17 22:03 Dose: 0.5 mg Metronidazole 250 mg/ (Miscellaneous) 50 mls @ 100 mls/hr IVPB Q8 [facility] Last Admin: 04/14/17 05:36 Dose: 100 mls/hr Insulin Human Regular (Novolin R) 0 unit SC ACHS [facility] PRN Reason: Protocol Last Admin: 04/14/17 07:08 Dose: Not Given Levothyroxine Sodium (Synthroid) 50 mcg PO DAILY@0630 [facility] Last Admin: 04/14/17 05:36 Dose: 50 mcg Vitamin B Complex/Vit C/Folic Acid (Nephro-Nandini) 1 tab PO 0800 [facility] Last Admin: 04/13/17 09:09 Dose: 1 tab Zolpidem Tartrate (Ambien) 5 mg PO HS PRN PRN Reason: Insomnia - Labs Labs: 04/13/17 07:10 04/13/17 07:10 PT 12.5 SECONDS (9.7-12.2) H 04/10/17 17:59 INR 1.1 04/10/17 17:59 APTT 37 SECONDS (21-34) H 04/10/17 17:59
[2017-04-14] MEDS: Multivitamin Vitamin B Complex (Nephro-Vite) Tab PO SCH (08:45)
--- NOTE | 2017-04-14 09:08 | CP.PCM.PN ---
Subjective - Date & Time of Evaluation Date of Evaluation: 04/14/17 Time of Evaluation: 09:01 - Subjective Subjective: 86 year old female patient seen at bedside with attending Dr. Kamara. Patient seen resting comfortably in bed and in NAD. Patient is a poor historian; she did report some pain to her bilaterally foot today. Patient denies any acute overnight events. Patient denies N/V/F/D/C/SOB. No other pedal complaints at this time. Objective - Vital Signs/Intake and Output Vital Signs (last 24 hours): Temp Pulse Resp BP Pulse Ox 97.8 F 78 18 142/57 L 100 04/14/17 07:00 04/14/17 08:13 04/14/17 07:00 04/14/17 07:00 04/14/17 07:00 Intake and Output: 04/14/17 04/14/17 06:59 18:59 Intake Total 290 Balance 290 - Medications Medications: Current Medications Calcium Acetate (Phoslo) 667 mg PO DAILY [facility] Last Admin: 04/13/17 09:09 Dose: 667 mg Epoetin Kailash (Procrit) 10,000 unit IV TTS [facility] Last Admin: 04/12/17 10:58 Dose: 10,000 unit Ergocalciferol (Drisdol 50,000 Intl Units Cap) 1 cap PO Q7D [facility] Last Admin: 04/12/17 21:13 Dose: 1 cap Heparin Sodium (Porcine) (Heparin) 3,700 units IVP TTS [facility] Last Admin: 04/12/17 11:41 Dose: 3,700 units Hydromorphone HCl (Dilaudid) 0.5 mg IVP Q6H PRN PRN Reason: Pain, severe (8-10) Last Admin: 04/13/17 22:03 Dose: 0.5 mg Metronidazole 250 mg/ (Miscellaneous) 50 mls @ 100 mls/hr IVPB Q8 [facility] Last Admin: 04/14/17 05:36 Dose: 100 mls/hr Insulin Human Regular (Novolin R) 0 unit SC ACHS [facility] PRN Reason: Protocol Last Admin: 04/14/17 07:08 Dose: Not Given Levothyroxine Sodium (Synthroid) 50 mcg PO DAILY@0630 [facility] Last Admin: 04/14/17 05:36 Dose: 50 mcg Vitamin B Complex/Vit C/Folic Acid (Nephro-Nandini) 1 tab PO 0800 [facility] Last Admin: 04/14/17 08:45 Dose: 1 tab Zolpidem Tartrate (Ambien) 5 mg PO HS PRN PRN Reason: Insomnia - Labs Labs: 04/13/17 07:10 04/13/17 07:10 PT 12.5 SECONDS (9.7-12.2) H 04/10/17 17:59 INR 1.1 04/10/17 17:59 APTT 37 SECONDS (21-34) H 04/10/17 17:59 - Constitutional Appears: Well, Non-toxic, No Acute Distress - Extremities Exam Additional comments: Bilateral Lower extremity focused exam: VASC: DP and PT pulses non-palpable b/l. CFT > 3 seconds to all digits. Skin temperature cold to cold from mid-leg to distal toes. +2 pitting edema noted b/ l legs DERM: Right foot- Chronic dry gangrenous changes noted to entirety of first and second digits. First interspace has wound with rivers, soupy tissue noted. Probe to bone is positive at this site. Abrasion noted to extend dorsally from the wound with base >90% fibrotic. Skin appears friable with visible ischemic changes. Left foot- Chronic dry gangrenous changes noted to entirety of left hallux, distal half of second digit, distal tip and base of third digit, and increase in gangrenous changes on distal aspects of fourth and fifth digits. Demarcation of chronic ischemic changes noted to entire distal half of foot consisting of superficial abrasions and possible exposed tendon on dorsum of 3rd metatarsal. Skin appears friable with visible ischemic changes. NEURO: unable to assess due to patient's unresponsiveness - Neurological Exam Neurological Exam: Awake - Psychiatric Exam Psychiatric exam: Normal Affect, Normal Mood Assessment and Plan - Assessment and Plan (Free Text) Assessment: 86 year old female seen at bedside with LE pitting edema and gangrene to feet b/ l secondary to DM, PVD Plan: Patient examined and evaluated at bedside with attending Dr. Kamara Chart, labs, vitals reviewed (afebrile, WBC trending upwards @ 18.9 on 04/14/17) Feet dressed with betadine gauze, 4x4, kerlix Patient to continue IV abx per ID Continue pain mgmt per medicine Patient and family refuse surgical intervention at this time Social work consulted for hospice evaluation Podiatry will continue to follow patient while in house
[2017-04-14] MEDS: Epoetin Alfa 10,000 unit/ml Dialysis IV SCH (10:51)
[2017-04-14] MEDS: HYDROmorphone 0.5 mg/0.5 ml ISec IVP PRN (13:54)
--- NOTE | 2017-04-14 15:49 | PN ---
DATE: 04/13/2017 TIME: 06:47 p.m. SUBJECTIVE: I saw this lady actually several times today. I know this lady quite well and the family and she was in severe pain when awake and then she requires medications in the form of Dilaudid around the clock. There is intense pain at the site of the gangrene, cellulitis, etc., in both lower extremities, both feet. When she is sleeping, sedated with pain medications, she looks quite well, the overall condition. No evidence of any respiratory distress at anytime. According to the daughter, Adrian, she is not eating well. When she woke up, Ms. Caldwell, the patient, in clear perfect Indonesian in front of her daughter said, "Dr. Currie, please send me home." Actually, it breaks my heart to tell you the truth. According to the daughter and the patient, there is no breathing difficulties. No chest pain. No nausea. No vomiting. No diarrhea. Rest of the review of systems is otherwise negative. PHYSICAL EXAMINATION: GENERAL: Alert when she is not heavily sedated, answering appropriately to the daughter in Swiss and short answers in Indonesian when I ask questions as she lived here for years, this is not the new. VITAL SIGNS: Remains quite stable with a blood pressure in the range about 120/60-70, heart rate is normal in intensive care and regular. I just realized that this lady is on telemetry and we will proceed to discontinue telemetry, no need at this point in time to look out for reasons. From the cardiopulmonary view point, her veins are borderline; however, she did not have dialysis today. They did it yesterday, so hopefully they will do again tomorrow to ensure dialysis site do not close. LUNGS: Show some crepitation at the right base, but this is chronic. HEART: Heart rate is regular as I mentioned. Systolic murmur is the same. ABDOMEN: Scaphoid. No localized tenderness. CENTRAL NERVOUS SYSTEM: No localized weakness. EXTREMITIES: Lower extremities is wrapped at both feet, wrapped with bandage. There is no actual lymphedema at this point in time and no malodor. COMPLEMENTARY DATA: Nothing spectacular, again with a white count elevated at about 8000 or so. Hemoglobin and hematocrit are stable, perhaps a little dry at this point. The rest of the electrolytes, renal function, etc., nothing except that she has some borderline hypokalemia, but this was because she had dialysis yesterday. TSH is elevated significantly at around 22, pointing to some hypothyroidism. We will let the medical attending to know and look into that. ASSESSMENT AND PLAN: Severe atherosclerotic cardiovascular disease, diffuse atherosclerotic coronaries everywhere. She had a stroke in the past as well as peripheral with gangrene, cellulitis, infection, etc. Hypertension and hypertensive heart disease earlier, full compensated. I had a very extensive conversation on multiple occasions yesterday and today with daughter, Adrian, and with the son, Rubi, over the telephone. At this point in time, the only solution here to prevent the severe excruciating pain that Ms. Caldwell is suffering continuously is to have amputation of both lower extremities. This is something that we have known for weeks, a month now, but everybody has been reluctant to go into this because the mother has refused and she is mentally confident. They are afraid to go against her wishes. This is a very terrible situation because this is not going to get better. She is to going to go home. She will continue to have severe pain and she will be back again and the cycle will start all over again. Also I have mentioned if they do not want any surgery to prevent this severe, excruciating and torturing pain, then perhaps to consider hospice, although they tried that before on 3 occasions and she signed up for the hospice and she canceled the hospice on at least 2 occasions and I remember clearly and perhaps this is a third one. I also mentioned to the family that I ran into Dr. Rao Clark, the vascular surgeon here in [facility], [place]. Off the record, I mentioned about this situation and spoke also with the family and they agreed for amputation of both lower extremities and it would be done by Dr. Clark. He knows the patient well from the past and if we get to that point, he will be one that will do it, but this conversation was off the record and once this was agreed upon by all the children, then the patient will proceed accordingly. In the meantime, Dr. Onofre, the medical attending, had the situation very well controlled, parenteral analgesia using Dilaudid and Infectious Disease right now is using bolus doses of gentamicin. She had several doses of vancomycin so far. I will discuss the situation personally with the medical attending, Dr. Onofre, to try to bring her up-to-date and perhaps there are several things that we should discuss. Denis Currie MD
[2017-04-14] MEDS ORDERED: HYDROmorphone 0.5 mg/0.5 ml ISec IVP PRN (16:58)
--- NOTE | 2017-04-14 20:53 | CP.PCM.PN ---
Subjective - Date & Time of Evaluation Date of Evaluation: 04/14/17 Time of Evaluation: 20:53 - Subjective Subjective: CHIEF COMPLAINTS TODAY : AFEBRILE AWAKEAND RESPONSIVE COMFORTABLE ROS. - OBSERVED HEENT : N. Resp : No cough, wheezing ,pleuritic CP ,or hemoptysis Cardio : No anginal CP, PND, orthopnea, palpitation GI : No abd.pain, n/v ,diarrhea or GI bleeding . CABLE SPLICER ASSISTANT : No headache, vertigo, focal deficit. Musculoskel : No joint swelling , Derm : No rash Psych : Normal affect. Ext : BILATERAL LOWER EXTREMITIES AND DRESSINGS/TOES GANGRENOUS. PE. Pt. RESTING in no distress. V.S As noted in the chart Head ,ear nose,throat and eyes : Normal. Neck : Supple with normal carotids. Lungs: Clear air entry. Heart : S1 & S2 normal with S4. No murmur. Abd : Soft non tender with normal bowel sounds. Neuro : Moves all ext. with no localized deficit. Ext : BILATERAL LOWER EXTREMITIES IN DRESSING/BILATERAL TOES GANGRENOUS Derm : No rashes or decubitus ulcer. LABS/RADIOLOGY: wbc 17.2,-->18.9 h&h 10.9 CREATININE 2.2/BUN36 LFT N TSH 22.50-ELEVATED bLOOD CULTURES 04/10/17-VE TO DATE Objective - Vital Signs/Intake and Output Vital Signs (last 24 hours): Temp Pulse Resp BP Pulse Ox 97.3 F L 85 18 126/65 98 04/14/17 16:00 04/14/17 16:00 04/14/17 16:00 04/14/17 16:00 04/14/17 16:00 - Medications Medications: Current Medications Calcium Acetate (Phoslo) 667 mg PO DAILY [facility] Last Admin: 04/14/17 09:50 Dose: Not Given Epoetin Kailash (Procrit) 10,000 unit IV TTS [facility] Last Admin: 04/14/17 10:51 Dose: 10,000 unit Ergocalciferol (Drisdol 50,000 Intl Units Cap) 1 cap PO Q7D [facility] Last Admin: 04/12/17 21:13 Dose: 1 cap Heparin Sodium (Porcine) (Heparin) 3,700 units IVP TTS [facility] Last Admin: 04/14/17 10:52 Dose: 3,700 units Hydromorphone HCl (Dilaudid) 1 mg IVP Q4H PRN PRN Reason: Pain, severe (8-10) Last Admin: 04/14/17 18:01 Dose: 1 mg Metronidazole 250 mg/ (Miscellaneous) 50 mls @ 100 mls/hr IVPB Q8 [facility] Last Admin: 04/14/17 13:54 Dose: 100 mls/hr Insulin Human Regular (Novolin R) 0 unit SC ACHS [facility] PRN Reason: Protocol Last Admin: 04/14/17 16:45 Dose: Not Given Levothyroxine Sodium (Synthroid) 50 mcg PO DAILY@0630 [facility] Last Admin: 04/14/17 05:36 Dose: 50 mcg Vitamin B Complex/Vit C/Folic Acid (Nephro-Nandini) 1 tab PO 0800 [facility] Last Admin: 04/14/17 08:45 Dose: 1 tab Zolpidem Tartrate (Ambien) 5 mg PO HS PRN PRN Reason: Insomnia - Labs Labs: 04/13/17 07:10 04/13/17 07:10 PT 12.5 SECONDS (9.7-12.2) H 04/10/17 17:59 INR 1.1 04/10/17 17:59 APTT 37 SECONDS (21-34) H 04/10/17 17:59 Assessment and Plan (1) Bilateral cellulitis of lower leg Status: Acute (2) Gangrene Assessment & Plan: Podiatry RECOMMENDS AMPUTATION. DAUGHTER REFUSING. CASE DISCUSSED WITH HIGH SCHOOL FOREIGN LANGUAGE TEACHER. LAURENT.PATIENT FOR SUBACUTE REHABILITATION. PATIENT HAS NO iv ACCESS , THEREFORE PATIENT CAN BE SWITCHED TO iv GENTAMICIN 80 MG LOADING DOSE POST HEMODIALYSIS 07/20 fOLLOWED BY 50 MG POST EACH HEMODIALYSIS MWF 5 DOSES ALSO CONTINUE iv VANCOMYCIN 500 MG MWF X 5 DOSES. STARTED IV FLAGYL 250MG IV Q8HRLY 04/13/17 fOLLOW-UP BLOOD CULTURES TO ADJUST ANTIBIOTICS. PATIENT WILL NEED REEVALUATION OF iv ANTIBIOTICS AFTER ABOVE COURSE COMPLETED. PATIENT HAS BILATERAL ISCHEMIC GANGRENOUS TOES/PVD AND WOULD BE BETTER OFF WITH BKA/AKA WE'LL FOLLOW THE PATIENT WHILE IN HOUSE. Status: Acute (3) ESRD (end stage renal disease) on dialysis Status: Acute (4) Anemia Status: Chronic (5) DM2 (diabetes mellitus, type 2) Status: Chronic
--- NOTE | 2017-04-15 03:48 | PN ---
SUBJECTIVE: The patient is examined on the bedside. Son was sitting on the bedside. The patient was getting Dilaudid 0.5 mg q. 6 hours, but nurse called me that the patient is thinking that this interval is too big for her, then I changed it to Dilaudid 0.5 q. 4 hours, but when I did the round and as per the patient's son that Dilaudid 0.5 mg is not relieving his mother's pain. He said that they are waiting for one of the other sister from [place] and after when she will come they will decide about amputation. I educated the patient and the family that the patient need amputation as per Dr. Kamara. PHYSICAL EXAMINATION VITAL SIGNS: Temperature 97.8, pulse 78, respiratory rate 18, blood pressure 142/57, pulse oximetry 100%. HEENT: Head normocephalic, atraumatic. Eyes, PERRLA. Extraocular movements intact. Conjunctivae clear. Nose is patent. Mucous membranes are moist. NECK: Supple. No carotid bruits, JVD, or thyromegaly. CHEST: Bilaterally symmetrical. HEART: S1 and S2 positive. LUNGS: Clear to auscultation. ABDOMEN: Soft. Bowel sounds present. No organomegaly. EXTREMITIES: No edema. No cyanosis. NEUROLOGIC: The patient is awake and alert. Moving all four extremities. No focal deficits. MEDICATIONS: PhosLo, Percocet, vitamin D, heparin, Dilaudid, metronidazole, insulin, levothyroxine, vitamin B complex, Zolpidem. LABORATORY DATA: White blood cell is 18.9, hemoglobin 10.9, hematocrit 32.7, platelets 186. Sodium 135, potassium 3.5, BUN 36, creatinine 2.2. ASSESSMENT AND PLAN: Ms. Marj Caldwell is an 86-year-old female with leukocytosis, anemia, renal insufficiency, hypokalemia, has gangrenous toes bilaterally, severe peripheral vascular disease. Dr. Kamara, the evaluation assistant seeing this patient everyday. Dr. Kamara knows this patient for a long time. The patient is getting IV antibiotics as per ID. Continue pain management, did some changes. GI and DVT prophylaxis. Repeat labs. We will follow up. Rosalinda Onofre MD [facility] # [id number]
[2017-04-15] MEDS: metroNIDAZOLE IV 500 mg/100 ml 250 MG in Premixed IV 1 EA IVPB SCH ×3 (05:26→21:53)
[2017-04-15] MEDS: Levothyroxine 50 MCG TAB PO SCH (05:35)
[2017-04-15] MEDS: (Novolin R) Insulin Human Regular 100 units/ml vial SC SCH ×4 (06:59→21:50)
[2017-04-15 08:42] LABS: BASO # 0.1 K/uL (0.0-0.2); BASO % 0.4 % (0.0-2.0); EOS % 0.2 % (0.0-4.0); HEMATOCRIT 29.6 % (34.0-47.0); LYMPH # 1.1 K/uL (1.0-4.3); LYMPH % 5.8 % (20.0-40.0); MEAN CELL VOLUME 94.2 fL (81.0-99.0); MEAN CORPUSCULAR HEMOGLOBIN 30.9 pg (27.0-31.0); MEAN CORPUSCULAR HGB CONC 32.8 g/dL (33.0-37.0); MONO # 1.2 K/uL (0.0-0.8); MONO % 6.5 % (0.0-10.0); NRBC % 0.1 % (0.0-2.0); PLATELET COUNT 216 K/uL (130-400); RED CELL DISTRIBUTION WIDTH 17.7 % (11.5-14.5); WHITE BLOOD COUNT 18.6 K/uL (4.8-10.8)
[2017-04-15] MEDS: Multivitamin Vitamin B Complex (Nephro-Vite) Tab PO SCH (08:46)
--- NOTE | 2017-04-15 08:49 | CP.PCM.PN ---
Subjective - Date & Time of Evaluation Date of Evaluation: 04/14/17 Time of Evaluation: 13:00 - Subjective Subjective: SEEN ON RENAL F/U SEEN ON HD DAUGHTER ON BED SIDE .. CASE D/W HER . APPETITE IMPROVED PT FEELS BETTER TOLERATING HD WELL EDEMA RESOLVED Objective - Vital Signs/Intake and Output Vital Signs (last 24 hours): Temp Pulse Resp BP Pulse Ox 97 F L 78 20 127/52 L 98 04/15/17 08:38 04/15/17 08:38 04/15/17 08:38 04/15/17 08:38 04/15/17 08:38 Intake and Output: 04/15/17 04/15/17 06:59 18:59 Intake Total 740 Balance 740 - Medications Medications: Current Medications Calcium Acetate (Phoslo) 667 mg PO DAILY [facility] Last Admin: 04/14/17 09:50 Dose: Not Given Epoetin Kailash (Procrit) 10,000 unit IV TTS [facility] Last Admin: 04/14/17 10:51 Dose: 10,000 unit Ergocalciferol (Drisdol 50,000 Intl Units Cap) 1 cap PO Q7D [facility] Last Admin: 04/12/17 21:13 Dose: 1 cap Heparin Sodium (Porcine) (Heparin) 3,700 units IVP TTS [facility] Last Admin: 04/14/17 10:52 Dose: 3,700 units Hydromorphone HCl (Dilaudid) 1 mg IVP Q4H PRN PRN Reason: Pain, severe (8-10) Last Admin: 04/14/17 18:01 Dose: 1 mg Metronidazole 250 mg/ (Miscellaneous) 50 mls @ 100 mls/hr IVPB Q8 [facility] Last Admin: 04/15/17 05:26 Dose: 100 mls/hr Insulin Human Regular (Novolin R) 0 unit SC ACHS [facility] PRN Reason: Protocol Last Admin: 04/15/17 06:59 Dose: Not Given Levothyroxine Sodium (Synthroid) 50 mcg PO DAILY@0630 [facility] Last Admin: 04/15/17 05:35 Dose: 50 mcg Vitamin B Complex/Vit C/Folic Acid (Nephro-Nandini) 1 tab PO 0800 [facility] Last Admin: 04/14/17 08:45 Dose: 1 tab Zolpidem Tartrate (Ambien) 5 mg PO HS PRN PRN Reason: Insomnia - Labs Labs: 04/15/17 08:20 04/13/17 07:10 PT 12.5 SECONDS (9.7-12.2) H 04/10/17 17:59 INR 1.1 04/10/17 17:59 APTT 37 SECONDS (21-34) H 04/10/17 17:59 Assessment and Plan - Assessment and Plan (Free Text) Assessment: ESRD ON HD T T S .. TO BE C/O ANEMIA OF CKD .. H/H SABLE .. ON EPO EDEMA .. RESOLVED AFTER 2 HD MULTIPLE CO MORBIDITIES P : C/O CURRENT CARE
[2017-04-15 08:53] LABS: ALB/GLOB RATIO 0.7 (1.0-2.1); BILIRUBIN,TOTAL 0.4 mg/dL (0.2-1.3); TOTAL PROTEIN 5.9 g/dL (6.3-8.3)
[2017-04-15 08:54] LABS: CALCIUM 8.1 mg/dl (8.6-10.4)
[2017-04-15 11:36] LABS: NEUTROPHIL 83 % (50-75); TOTAL CELLS COUNTED 100
[2017-04-15 11:39] LABS: LARGE PLATELETS PRESENT
--- NOTE | 2017-04-15 17:45 | PN ---
DATE: 04/14/2017 LOCATION: Room 563A TIME: Around 12 - 1 p.m. on Internet with the daughter Maribel yesterday. SUBJECTIVE: She was actually in very good mood. She was speaking quite well. There was no pain in the extremities. She had undergone dialysis earlier yesterday. I do not know the length, but she had dialysis without any issues. While I was there, the daughter came and she actually inquired with attending nurse there and from me about the pain medication and apparently had not received any pain medication since the night before, and this was a very interesting development here. When she was home, she had pain continuously, because if she keep the legs down, the swelling returns, the infection returns, etc., etc. The only problem now or yesterday was there was an episode that there was some pressure, redness, etc., developing in both heels and the nurse brought two big heel pads, a very, very large, very nice pads like a boot for both feet and they were applied to prevent the ulcer that was some sort of early stage redness in the sacral area. They were both looped in very carefully and apparently this was present before. There was no evidence of any discomfort at that time as she was breathing quite easily and she denied any chest pain or shortness of breath when the daughter asked her. She has actually a very good appetite according to the nurse and her daughter Maribel. I was waiting for her son, Rubi, but he was going to come later on in the late afternoon or in the evening. Rest of the review of systems otherwise negative. PHYSICAL EXAMINATION: VITAL SIGNS: Her vital signs were quite stable. Blood pressure systolic in the range of about 120 or so. Afebrile, respiratory rate unremarkable. CARDIOPULMONARY: From the cardiopulmonary viewpoint, there appeared well-compensated, no evidence of any failure. LUNGS: Minimal adventitious sounds at the right base as usual. HEART: Heart sounds normal in intensity and regular. Systolic murmur is basically part of sclerotic heart disease, it is unchanged. ABDOMEN: Unremarkable. FINANCIAL INVESTMENT MANAGER: Exam also unremarkable. LABORATORY DATA: Her Accu-Chek is mildly elevated, nothing spectacular.. ASSESSMENT AND PLAN: Again, I had a very long conversation with Maribel, the daughter and her brother, they are in agreement that perhaps they wish they should proceed with surgical procedure to amputate these two offending gangrenous lower extremities and she gave me again the green light to discuss the situation with Dr. Clark, once they get hold of their sister Felix(?) , who is in [place] on vacation with her family and she had been aware of this situation, but she is flying back home some time Sunday night and so they want to also get her agreement and try to see if their mother eventually agrees with these things. From my view point, she is medically and cardiovascularly stable to proceed with the surgical intervention, if this is all agreed. Denis Currie MD MTDD
--- NOTE | 2017-04-15 22:15 | CP.PCM.PN ---
Subjective - Date & Time of Evaluation Date of Evaluation: 04/15/17 Time of Evaluation: 09:00 - Subjective Subjective: 86 year old female patient seen at bedside with attending Dr. Kamara. Patient seen resting comfortably in bed and in NAD. she did report severe pain to her bilaterally foot today. Patient denies any acute overnight events. Patient denies N/V/F/D/C/SOB. Her daugther and son was at bedside during dressing change. Daughter and son is opting for surgery but their sister is against it at the moment. Patient's daughter states she will talk to the other sister and let team know where family stands and patient stands on surgery vs wound care management. Objective - Vital Signs/Intake and Output Vital Signs (last 24 hours): Temp Pulse Resp BP Pulse Ox 98.3 F 84 20 131/54 L 98 04/15/17 16:00 04/15/17 16:00 04/15/17 16:00 04/15/17 16:00 04/15/17 16:00 - Medications Medications: Current Medications Calcium Acetate (Phoslo) 667 mg PO DAILY [facility] Last Admin: 04/15/17 11:09 Dose: 667 mg Epoetin Kailash (Procrit) 10,000 unit IV TTS [facility] Last Admin: 04/14/17 10:51 Dose: 10,000 unit Ergocalciferol (Drisdol 50,000 Intl Units Cap) 1 cap PO Q7D [facility] Last Admin: 04/12/17 21:13 Dose: 1 cap Hydromorphone HCl (Dilaudid) 1 mg IVP Q4H PRN PRN Reason: Pain, severe (8-10) Last Admin: 04/15/17 18:26 Dose: 1 mg Metronidazole 250 mg/ (Miscellaneous) 50 mls @ 100 mls/hr IVPB Q8 [facility] Last Admin: 04/15/17 21:53 Dose: 100 mls/hr Insulin Human Regular (Novolin R) 0 unit SC ACHS [facility] PRN Reason: Protocol Last Admin: 04/15/17 21:50 Dose: Not Given Levothyroxine Sodium (Synthroid) 50 mcg PO DAILY@0630 [facility] Last Admin: 04/15/17 05:35 Dose: 50 mcg Vitamin B Complex/Vit C/Folic Acid (Nephro-Nandini) 1 tab PO 0800 [facility] Last Admin: 04/15/17 08:46 Dose: 1 tab Zolpidem Tartrate (Ambien) 5 mg PO HS PRN PRN Reason: Insomnia - Labs Labs: 04/15/17 08:20 04/15/17 08:20 PT 12.5 SECONDS (9.7-12.2) H 04/10/17 17:59 INR 1.1 04/10/17 17:59 APTT 37 SECONDS (21-34) H 04/10/17 17:59 - Constitutional Appears: Well, Non-toxic, No Acute Distress - Extremities Exam Additional comments: Bilateral Lower extremity focused exam: VASC: DP and PT pulses non-palpable b/l. CFT > 3 seconds to all digits. Skin temperature cold to cold from mid-leg to distal toes. +2 pitting edema noted b/ l legs DERM: Right foot- Chronic dry gangrenous changes noted to entirety of first and second digits. First interspace has wound with rivers, soupy tissue noted. Probe to bone is positive at this site. Abrasion noted to extend dorsally from the wound with base >90% fibrotic. Skin appears friable with visible ischemic changes. Left foot- Chronic dry gangrenous changes noted to entirety of left hallux, distal half of second digit, distal tip and base of third digit, and increase in gangrenous changes on distal aspects of fourth and fifth digits. Demarcation of chronic ischemic changes noted to entire distal half of foot consisting of superficial abrasions and possible exposed tendon on dorsum of 3rd metatarsal. Skin appears friable with visible ischemic changes. NEURO: unable to assess due to patient's unresponsiveness - Neurological Exam Neurological Exam: Alert, Awake, Oriented x3 - Psychiatric Exam Psychiatric exam: Flat Affect, Normal Mood Assessment and Plan - Assessment and Plan (Free Text) Assessment: 86 year old female seen at bedside with LE pitting edema and gangrene to feet b/ l secondary to DM, PVD Plan: Patient examined and evaluated at bedside with attending Dr. Kamara Chart, labs, vitals reviewed (afebrile, WBC trending upwards @ 18.9 on 04/14/17) Feet dressed with betadine gauze, 4x4, kerlix Patient to continue IV abx per ID Continue pain mgmt per medicine Patient and family refuse surgical intervention at this time Social work consulted for hospice evaluation Podiatry will continue to follow patient while in house
--- NOTE | 2017-04-16 05:23 | PN ---
SUBJECTIVE: The patient was seen and examined at the bedside, feeling comfortable, pain is definitely little bit under control by increasing Dilaudid and by decreasing the interval. Had no bowel movements from couple of days. No nausea, vomiting or diarrhea. No hematuria or hematochezia. No swelling of the upper extremities. Lower extremities, feet, are wrapped with gauze. PHYSICAL EXAMINATION: VITAL SIGNS: Temperature 98.8, pulse 69, blood pressure 147/63 and respiratory rate 20. HEENT: Head is normocephalic and atraumatic. Eyes; PERRLA. Extraocular muscles intact. Conjunctivae clear. Nose is patent. Mucous membranes are moist. NECK: Supple. No carotid bruit. No JVD or thyromegaly. CHEST: Bilaterally symmetrical. HEART: S1 and S2 positive. LUNGS: Clear to auscultation. ABDOMEN: Soft. Bowel sounds are present. No organomegaly. EXTREMITIES: No edema. No cyanosis. NEUROLOGIC: The patient is awake and alert. Moving all four extremities. No focal deficits. MEDICATIONS: Ambien, Dilaudid, vitamin D, metronidazole, PhosLo and Procrit. LABORATORY DATA: White blood cells 18.6, hemoglobin 9.7, hematocrit 29.6 and platelets 216. Sodium 138, potassium 4.0, BUN 33, creatinine 2.8, glucose 116 and calcium 8.1. ASSESSMENT AND PLAN: The patient is an 86-year-old lady with hyperchloremia, renal insufficiency, hyperglycemia, hypoglycemia, abnormal liver function test, leukocytosis, anemia, left extremity pitting edema, gangrene of the feet bilaterally secondary to diabetes mellitus, severe peripheral neuropathy. Feet dressing is done by Dr. Kamara and his team regularly, getting IV antibiotics and pain management. Family is refusing for amputation, physician is to call hospice care. Appreciate Dr. Kamara's notes. Waiting for some family members to make important decision. She is presenting back to home today. GI prophylaxis. Repeat labs. We will follow up. Rosalinda Onofre MD
[2017-04-16] MEDS: metroNIDAZOLE IV 500 mg/100 ml 250 MG in Premixed IV 1 EA IVPB SCH ×3 (05:51→21:52)
[2017-04-16] MEDS: Levothyroxine 50 MCG TAB PO SCH (05:55)
[2017-04-16] MEDS: (Novolin R) Insulin Human Regular 100 units/ml vial SC SCH ×4 (08:00→22:45)
[2017-04-16] MEDS: Multivitamin Vitamin B Complex (Nephro-Vite) Tab PO SCH (08:59)
--- NOTE | 2017-04-16 16:14 | CP.PCM.PN ---
<Tr Null - Last Filed: 04/16/17 16:06> Subjective - Date & Time of Evaluation Date of Evaluation: 04/16/17 Time of Evaluation: 10:40 - Subjective Subjective: 86 year old female patient seen at bedside with attending Dr. Kamara for B/L leg edema and b/l feet gangrene. Patient seen resting comfortably in bed and in NAD. She did report severe pain to her bilaterally foot today. Patient denies any acute overnight events. Patient denies F/N./V/C/SOB/CP today. Her son was at bedside during dressing change. Son is opting for surgery but their sister is against it at the moment. Patient's son understands the risks and benefits for the surgical procedure and will decide what treatment the family wants to follow Objective - Vital Signs/Intake and Output Vital Signs (last 24 hours): Temp Pulse Resp BP Pulse Ox 97.8 F 76 19 139/67 97 04/16/17 08:37 04/16/17 08:37 04/16/17 08:37 04/16/17 08:37 04/16/17 08:37 - Medications Medications: Current Medications Calcium Acetate (Phoslo) 667 mg PO DAILY [facility] Last Admin: 04/16/17 09:51 Dose: 667 mg Epoetin Kailash (Procrit) 10,000 unit IV TTS [facility] Last Admin: 04/14/17 10:51 Dose: 10,000 unit Ergocalciferol (Drisdol 50,000 Intl Units Cap) 1 cap PO Q7D [facility] Last Admin: 04/12/17 21:13 Dose: 1 cap Hydromorphone HCl (Dilaudid) 1 mg IVP Q4H PRN PRN Reason: Pain, severe (8-10) Last Admin: 04/16/17 11:50 Dose: 1 mg Metronidazole 250 mg/ (Miscellaneous) 50 mls @ 100 mls/hr IVPB Q8 [facility] Last Admin: 04/16/17 13:43 Dose: 100 mls/hr Insulin Human Regular (Novolin R) 0 unit SC ACHS [facility] PRN Reason: Protocol Last Admin: 04/16/17 12:00 Dose: Not Given Lactulose (Enulose) 30 gm PO DAILY [facility] Last Admin: 04/16/17 13:42 Dose: 30 gm Levothyroxine Sodium (Synthroid) 50 mcg PO DAILY@0630 [facility] Last Admin: 04/16/17 05:55 Dose: 50 mcg Vitamin B Complex/Vit C/Folic Acid (Nephro-Nandini) 1 tab PO 0800 [facility] Last Admin: 04/16/17 08:59 Dose: 1 tab Zolpidem Tartrate (Ambien) 5 mg PO HS PRN PRN Reason: Insomnia - Labs Labs: 04/15/17 08:20 04/15/17 08:20 PT 12.5 SECONDS (9.7-12.2) H 04/10/17 17:59 INR 1.1 04/10/17 17:59 APTT 37 SECONDS (21-34) H 04/10/17 17:59 - Constitutional Appears: Well, Non-toxic, Toxic, No Acute Distress, Older Than Stated Age - Extremities Exam Additional comments: Bilateral Lower extremity focused exam: VASC: DP and PT pulses non-palpable b/l. CFT > 3 seconds to all digits. Skin temperature cold to cold from mid-leg to distal toes. +1 pitting edema noted b/ l legs DERM: Right foot- Chronic dry gangrenous changes noted to entirety of first and second digits. First interspace has wound with rivers, soupy tissue noted. Probe to bone is positive at this site. Abrasion noted to extend dorsally from the wound with base >90% fibrotic. Skin appears friable with visible ischemic changes. Left foot- Chronic dry gangrenous changes noted to entirety of left hallux, distal half of second digit, distal tip and base of third digit, and increase in gangrenous changes on distal aspects of fourth and fifth digits. Demarcation of chronic ischemic changes noted to entire distal half of foot consisting of superficial abrasions and possible exposed tendon on dorsum of 3rd metatarsal. Skin appears friable with visible ischemic changes. NEURO: unable to assess due to patient's unresponsiveness ORTHO: pain on palpation during dressing changes - Neurological Exam Neurological Exam: Alert, Awake, Oriented x3 - Psychiatric Exam Psychiatric exam: Normal Affect, Normal Mood Assessment and Plan - Assessment and Plan (Free Text) Assessment: 86 year old female seen at bedside with LE pitting edema and gangrene to feet b/ l secondary to DM, PVD Plan: Patient examined and evaluated at bedside with attending Dr. Kamara Chart, labs, vitals reviewed (afebrile, WBC @ 18.6 as of 04/15/17) Feet dressed with betadine gauze,4x4, kerlix Patient to continue IV abx per ID Continue pain management as per medicine Patient and family refuse surgical intervention at this time but the son wants to reconsider the surgical option - will talk to the sister - If the family does want a surgical intervention, will consult vascular team for further evaluation Podiatry will continue to follow patient while in house <Venancio Kamara - Last Filed: 04/18/17 19:39> Objective - Vital Signs/Intake and Output Vital Signs (last 24 hours): Temp Pulse Resp BP Pulse Ox 98.1 F 74 20 131/71 98 04/18/17 16:04 04/18/17 16:04 04/18/17 16:04 04/18/17 16:04 04/18/17 16:04 - Medications Medications: Current Medications Calcium Acetate (Phoslo) 667 mg PO DAILY [facility] Last Admin: 04/18/17 09:46 Dose: 667 mg Epoetin Kailash (Procrit) 10,000 unit IV TTS [facility] Last Admin: 04/17/17 11:38 Dose: 10,000 unit Ergocalciferol (Drisdol 50,000 Intl Units Cap) 1 cap PO Q7D [facility] Last Admin: 04/12/17 21:13 Dose: 1 cap Hydromorphone HCl (Dilaudid) 1 mg IVP Q4H PRN PRN Reason: Pain, severe (8-10) Last Admin: 04/17/17 15:07 Dose: 1 mg Metronidazole 250 mg/ (Miscellaneous) 50 mls @ 100 mls/hr IVPB Q8 [facility] Last Admin: 04/18/17 14:06 Dose: 100 mls/hr Gentamicin Sulfate/Sodium Chloride (Gentamicin Iv 80 Mg Premix) 80 mg in 100 mls @ 100 mls/hr IVPB MWF [facility] Last Admin: 04/18/17 09:50 Dose: 100 mls/hr Vancomycin HCl 500 mg/ Sodium (Chloride) 100 mls @ 100 mls/hr IVPB MWF [facility] Last Admin: 04/18/17 11:10 Dose: 100 mls/hr Insulin Human Regular (Novolin R) 0 unit SC ACHS [facility] PRN Reason: Protocol Last Admin: 04/18/17 12:00 Dose: Not Given Lactulose (Enulose) 30 gm PO DAILY [facility] Last Admin: 04/18/17 09:46 Dose: 30 gm Levothyroxine Sodium (Synthroid) 50 mcg PO DAILY@0630 [facility] Last Admin: 04/18/17 06:00 Dose: 50 mcg Vitamin B Complex/Vit C/Folic Acid (Nephro-Nandini) 1 tab PO 0800 [facility] Last Admin: 04/18/17 07:57 Dose: 1 tab Zolpidem Tartrate (Ambien) 5 mg PO PRN PRN Reason: Insomnia - Labs Labs: 04/15/17 08:20 04/15/17 08:20 PT 12.5 SECONDS (9.7-12.2) H 04/10/17 17:59 INR 1.1 04/10/17 17:59 APTT 37 SECONDS (21-34) H 04/10/17 17:59 Assessment and Plan - Assessment and Plan (Free Text) Plan: Pt seen at bedside with resident during day hours and feet examined . Case discussed with multiole family members and explained that only treatment option is leg amputations .I have advised vascular surgical consult to discuss this . Family will discuss .
--- NOTE | 2017-04-16 16:56 | CP.PCM.CON ---
History of Present Illness - History of Present Illness History of Present Illness: Vascular Surgery- Dr. Clark 86F presented to the ED brought in by the son for a complaint of increased generalized leg pain. Pt is on dialysis MWF by [facility]. Son states the Necrosis on the distal feet started in November and has progressively gotten worse. Pain in feet have been getting worse with Maggots. Since that time angioplasty was performed b/L. Currently dry necrotic tissue LE b/L more so on the right than the left. Son states pt Denies F/C CP/SOB N/V/D. PMH: Anemia, Diabetes, HTN, Hypercholesterolemia, Peripheral Edema, End Stage Renal Disease, Chronic Kidney Disease, Sleep Apnea, TIA (in the 1970s) PSH: Angioplasty B/L ALL: NKDA SocialHx: denies ETOH, tobacco, illicit drug use Review of Systems - Review of Systems All systems: reviewed and no additional remarkable complaints except Past Patient History - Infectious Disease Hx of Infectious Diseases: None - Tetanus Immunizations Tetanus Immunization: Unknown - Past Medical History & Family History Past Medical History?: Yes - Past Social History Smoking Status: Never Smoked - CARDIAC Hx Hypercholesterolemia: Yes Hx Hypertension: Yes - PULMONARY Hx Sleep Apnea: Yes - NEUROLOGICAL HX Cerebrovascular Accident: Yes (CVA, TIA) - HEENT Hx HEENT Problems: Yes Hx Blind: No Hx Cataracts: Yes 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.) - RENAL Hx Renal Failure: Yes (ESRD, HD) - ENDOCRINE/METABOLIC Hx Diabetes Mellitus Type 2: Yes - HEMATOLOGICAL/ONCOLOGICAL Hx Anemia: Yes Hx Blood Transfusions: Yes Hx Blood Transfusion Reaction: No - INTEGUMENTARY Hx Dermatological Problems: No - MUSCULOSKELETAL/RHEUMATOLOGICAL Hx Arthritis: Yes (DJD, R THR) - GASTROINTESTINAL Hx Gastrointestinal Disorders: Yes (HX INTESTINAL OBSTUCTION NO SX) Hx Bowel Surgery: Yes (INTESTINAL OBSTRUCTION) - GENITOURINARY/GYNECOLOGICAL Hx Genitourinary Disorders: No - PSYCHIATRIC Hx Psychophysiologic Disorder: No Hx Substance Use: No - SURGICAL HISTORY Hx Surgeries: Yes Hx Arteriovenous Shunt: Yes (06/17/15) Hx Cataract Extraction: Yes Hx Hysterectomy: Yes Hx Open Reduction Internal Fixation: Yes (R HIP) Hx Orthopedic Surgery: Yes (Right hip replacement) Hx Vascular Surgery: Yes Hx Vascular Access Device: Yes (for dialysis) Other/Comment: PERMA CATH RIGHT - ANESTHESIA Hx Anesthesia: Yes Hx Anesthesia Reactions: No Hx Malignant Hyperthermia: No Meds Allergies/Adverse Reactions: Allergies Allergy/AdvReac Type Severity Reaction Status Date / Time No Known Allergies Allergy Verified 02/21/17 16:49 - Medications Medications: Current Medications Calcium Acetate (Phoslo) 667 mg PO DAILY [facility] Last Admin: 04/16/17 09:51 Dose: 667 mg Epoetin Kailash (Procrit) 10,000 unit IV TTS [facility] Last Admin: 04/14/17 10:51 Dose: 10,000 unit Ergocalciferol (Drisdol 50,000 Intl Units Cap) 1 cap PO Q7D [facility] Last Admin: 04/12/17 21:13 Dose: 1 cap Hydromorphone HCl (Dilaudid) 1 mg IVP Q4H PRN PRN Reason: Pain, severe (8-10) Last Admin: 04/16/17 16:19 Dose: 1 mg Metronidazole 250 mg/ (Miscellaneous) 50 mls @ 100 mls/hr IVPB Q8 [facility] Last Admin: 04/16/17 13:43 Dose: 100 mls/hr Insulin Human Regular (Novolin R) 0 unit SC ACHS [facility] PRN Reason: Protocol Last Admin: 04/16/17 12:00 Dose: Not Given Lactulose (Enulose) 30 gm PO DAILY [facility] Last Admin: 04/16/17 13:42 Dose: 30 gm Levothyroxine Sodium (Synthroid) 50 mcg PO DAILY@0630 [facility] Last Admin: 04/16/17 05:55 Dose: 50 mcg Vitamin B Complex/Vit C/Folic Acid (Nephro-Nandini) 1 tab PO 0800 [facility] Last Admin: 04/16/17 08:59 Dose: 1 tab Zolpidem Tartrate (Ambien) 5 mg PO HS PRN PRN Reason: Insomnia Physical Exam - Constitutional Appears: Unkempt Additional comments: laying in bed sleeping - Head Exam Head Exam: ATRAUMATIC - Respiratory Exam Respiratory Exam: NORMAL BREATHING PATTERN. absent: Accessory Muscle Use, Rhonchi, Wheezes - GI/Abdominal Exam GI & Abdominal Exam: Normal Bowel Sounds, Soft. absent: Distended, Firm - Extremities Exam Additional comments: +1 Left popliteal pulse B/L Distal LE Gangrene - Neurological Exam Neurological exam: Altered Results - Vital Signs Recent Vital Signs: Last Vital Signs Temp 98.3 F 04/16/17 16:08 Pulse 78 04/16/17 16:08 Resp 20 04/16/17 16:08 BP 131/64 04/16/17 16:08 Pulse Ox 97 04/16/17 16:08 - Labs Result Diagrams: 04/15/17 08:20 04/15/17 08:20 Labs: Laboratory Results - last 24 hr 04/15/17 04/15/17 04/16/17 17:07 21:05 06:43 POC Glucose (mg/dL) 109 116 H 71 04/16/17 11:31 POC Glucose (mg/dL) 75 Assessment & Plan - Assessment and Plan (Free Text) Assessment: 86F B/L LE gangrene Plan: - Plan for OR this week for bilateral AKA - optimize patient - c/w medical management - further recs per Dr. Amber Arias PGY1
--- NOTE | 2017-04-16 18:09 | CP.PCM.PN ---
Subjective - Date & Time of Evaluation Date of Evaluation: 04/16/17 Time of Evaluation: 16:00 - Subjective Subjective: SEEN ON RENAL F/U IN BED IN NAD ON HS T T S L E EDEMA RESOLVED ALL PREVIOUS EMR REVIEWED Objective - Vital Signs/Intake and Output Vital Signs (last 24 hours): Temp Pulse Resp BP Pulse Ox 98.3 F 78 20 131/64 97 04/16/17 16:08 04/16/17 16:08 04/16/17 16:08 04/16/17 16:08 04/16/17 16:08 - Medications Medications: Current Medications Calcium Acetate (Phoslo) 667 mg PO DAILY [facility] Last Admin: 04/16/17 09:51 Dose: 667 mg Epoetin Kailash (Procrit) 10,000 unit IV TTS [facility] Last Admin: 04/14/17 10:51 Dose: 10,000 unit Ergocalciferol (Drisdol 50,000 Intl Units Cap) 1 cap PO Q7D [facility] Last Admin: 04/12/17 21:13 Dose: 1 cap Hydromorphone HCl (Dilaudid) 1 mg IVP Q4H PRN PRN Reason: Pain, severe (8-10) Last Admin: 04/16/17 16:19 Dose: 1 mg Metronidazole 250 mg/ (Miscellaneous) 50 mls @ 100 mls/hr IVPB Q8 [facility] Last Admin: 04/16/17 13:43 Dose: 100 mls/hr Insulin Human Regular (Novolin R) 0 unit SC ACHS [facility] PRN Reason: Protocol Last Admin: 04/16/17 17:32 Dose: Not Given Lactulose (Enulose) 30 gm PO DAILY [facility] Last Admin: 04/16/17 13:42 Dose: 30 gm Levothyroxine Sodium (Synthroid) 50 mcg PO DAILY@0630 [facility] Last Admin: 04/16/17 05:55 Dose: 50 mcg Vitamin B Complex/Vit C/Folic Acid (Nephro-Nandini) 1 tab PO 0800 [facility] Last Admin: 04/16/17 08:59 Dose: 1 tab Zolpidem Tartrate (Ambien) 5 mg PO HS PRN PRN Reason: Insomnia - Labs Labs: 04/15/17 08:20 04/15/17 08:20 PT 12.5 SECONDS (9.7-12.2) H 04/10/17 17:59 INR 1.1 04/10/17 17:59 APTT 37 SECONDS (21-34) H 04/10/17 17:59 Assessment and Plan - Assessment and Plan (Free Text) Assessment: ESRD ON HD T T S ANEMIA OF CKD .. H/H STABLE SEVERE PAD .. AMP ?? PER VASCULAR SURGEON Plan: C/O CURRENT CARE
--- NOTE | 2017-04-16 23:32 | CP.PCM.PN ---
Subjective - Date & Time of Evaluation Date of Evaluation: 04/16/17 Time of Evaluation: 23:31 - Subjective Subjective: CHIEF COMPLAINTS TODAY : AFEBRILE AWAKEAND RESPONSIVE patient has progressively gotten worse with increasing leukocytosis events noted Seen by vascular surgery as per request family members, For amputation bilateral above-knee amputation Patient with gangrene and maggots. ROS. - OBSERVED HEENT : N. Resp : No cough, wheezing ,pleuritic CP ,or hemoptysis Cardio : No anginal CP, PND, orthopnea, palpitation GI : No abd.pain, n/v ,diarrhea or GI bleeding . 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 Musculoskel : No joint swelling , Derm : No rash Psych : Normal affect. Ext : BILATERAL LOWER EXTREMITIES AND DRESSINGS/TOES GANGRENOUS. PE. Pt. RESTING in no distress. V.S As noted in the chart Head ,ear nose,throat and eyes : Normal. Neck : Supple with normal carotids. Lungs: Clear air entry. Heart : S1 & S2 normal with S4. No murmur. Abd : Soft non tender with normal bowel sounds. Neuro : Moves all ext. with no localized deficit. Ext : BILATERAL LOWER EXTREMITIES IN DRESSING/BILATERAL TOES GANGRENOUS Derm : No rashes or decubitus ulcer. LABS/RADIOLOGY: wbc 17.2,-->18.9 h&h 10.9 CREATININE 2.2/BUN36 LFT N TSH 22.50-ELEVATED bLOOD CULTURES 04/10/17-VE TO DATE Objective - Vital Signs/Intake and Output Vital Signs (last 24 hours): Temp Pulse Resp BP Pulse Ox 98.3 F 78 20 131/64 97 04/16/17 16:08 04/16/17 16:08 04/16/17 16:08 04/16/17 16:08 04/16/17 16:08 - Medications Medications: Current Medications Calcium Acetate (Phoslo) 667 mg PO DAILY [facility] Last Admin: 04/16/17 09:51 Dose: 667 mg Epoetin Kailash (Procrit) 10,000 unit IV TTS [facility] Last Admin: 04/14/17 10:51 Dose: 10,000 unit Ergocalciferol (Drisdol 50,000 Intl Units Cap) 1 cap PO Q7D [facility] Last Admin: 04/12/17 21:13 Dose: 1 cap Hydromorphone HCl (Dilaudid) 1 mg IVP Q4H PRN PRN Reason: Pain, severe (8-10) Last Admin: 04/16/17 21:55 Dose: 1 mg Metronidazole 250 mg/ (Miscellaneous) 50 mls @ 100 mls/hr IVPB Q8 [facility] Last Admin: 04/16/17 21:52 Dose: 100 mls/hr Insulin Human Regular (Novolin R) 0 unit SC ACHS [facility] PRN Reason: Protocol Last Admin: 04/16/17 22:45 Dose: Not Given Lactulose (Enulose) 30 gm PO DAILY [facility] Last Admin: 04/16/17 13:42 Dose: 30 gm Levothyroxine Sodium (Synthroid) 50 mcg PO DAILY@0630 [facility] Last Admin: 04/16/17 05:55 Dose: 50 mcg Vitamin B Complex/Vit C/Folic Acid (Nephro-Nandini) 1 tab PO 0800 [facility] Last Admin: 04/16/17 08:59 Dose: 1 tab Zolpidem Tartrate (Ambien) 5 mg PO HS PRN PRN Reason: Insomnia - Labs Labs: 04/15/17 08:20 04/15/17 08:20 PT 12.5 SECONDS (9.7-12.2) H 04/10/17 17:59 INR 1.1 04/10/17 17:59 APTT 37 SECONDS (21-34) H 04/10/17 17:59 Assessment and Plan (1) Bilateral cellulitis of lower leg Status: Acute (2) Gangrene Assessment & Plan: PATIENT FOR BILATERAL ABOVE-KNEE AMPUTATION PATIENT WITH BILATERAL ISCHEMIC GANGRENE WITH SUPERINFECTION WITH MAGGOTS. aS PER FAMILY CONTINUE iv VANCOMYCIN 500 MG POST EACH HEMODIALYSIS.MWF POST HD X 5 DOSES cONTINUE iv GENTAMICIN 80 MG POST EACH HEMODIALYSIS. DOSES Status: Acute (3) ESRD (end stage renal disease) on dialysis Status: Acute (4) Anemia Status: Chronic (5) DM2 (diabetes mellitus, type 2) Status: Chronic
--- NOTE | 2017-04-17 00:10 | PN ---
LOCATION: Room 563A SUBJECTIVE: Appears in severe excruciating pain today requiring narcotic analgesia around 3 to 4 hours at most. Her son, Rubi, is at the beside, upset because of the severity of the pain, etc. I had a very, very long conversation actually in 2 occasions. I went to see her mother twice today in order to discuss plans at great detail. He told me that finally her sisters Maribel as well as Felix they all agreed along with him to proceed with amputation of both lower extremities. He has told her mother today and she also agreed. After I was told of this, finally there is a full agreement, I spoke with Dr. Onofre, the maintenance painter apprentice in the case, to make her aware since I know this family for quite sometime, and I told her that the surgeon in the case was Dr. Clark and I spoke with him about it. The patient did not have dialysis today, she is going to have dialysis tomorrow and hopefully the surgery if things do not change overnight sometime on Sunday. Appears to be no obvious respiratory insufficiency, embarrassment, she is just moaning and groaning because of the pain. Did not eat well today again because of the severity of the pain. No evidence of any nausea, vomiting or diarrhea according to her son, Rubi. Denis Currie MD
[2017-04-17] MEDS: metroNIDAZOLE IV 500 mg/100 ml 250 MG in Premixed IV 1 EA IVPB SCH ×3 (05:30→22:10)
[2017-04-17] MEDS: Levothyroxine 50 MCG TAB PO SCH (06:28)
[2017-04-17] MEDS: (Novolin R) Insulin Human Regular 100 units/ml vial SC SCH ×4 (08:28→22:30)
--- NOTE | 2017-04-17 09:28 | PN ---
DATE: SUBJECTIVE: The patient was seen and examined early in the morning, son was sitting on the bedside. No nausea or vomiting. No diarrhea. Pain is definitely little bit under control. Paulette was waiting for her daughter from other state, daughter arrived, now family is talking about the patient's feet amputation. I spoke to the patient's Chancery Clerk; otherwise no nausea or vomiting. No diarrhea. No headache or dizziness. PHYSICAL EXAMINATION: VITAL SIGNS: Temperature 97.9, pulse 86, blood pressure 137/70 and respiratory rate 20. HEENT: Head normocephalic and atraumatic. Eyes; PERRLA. Extraocular muscles intact. Conjunctivae clear. Nose patent. Mucous membrane moist. NECK: Supple. No carotid bruits or thyromegaly. CHEST: Bilaterally symmetrical. HEART: S1 and S2, positive. LUNGS: Clear to auscultation. ABDOMEN: Soft. Bowel sounds present. No organomegaly. EXTREMITIES: No edema. No cyanosis. NEUROLOGIC: The patient is awake, and alert. Moving all 4 extremities. No focal deficit. MEDICATIONS: Ambien, Dilaudid, vitamin D, Enulose, metronidazole, insulin, calcium phosphate, Procrit and Synthroid. LABORATORY DATA: White blood cell 18.6, hemoglobin 9.7, hematocrit 29.6 and platelets 216. Glucose 83 and 90. ASSESSMENT AND PLAN: Marj Caldwell is an 86 years old lady with multiple medical problems, bilateral cellulitis of the lower extremities, gangrenous toes, end-stage renal disease, on hemodialysis, anemia, diabetes mellitus type 2, severe peripheral vascular disease. Length of plan discussion done with Dr. Denis Currie, he is the patient's Chancery Clerk and is primary care physician as an outpatient also. The patient's son, Christophe is at the bedside. Dr. Denis Currie has long discussion with son in 2 sessions. After long, long discussion, they decided amputation. Consult was put with Dr. Clark. Dr. Denis Currie personally spoke to Dr. Clark. Gastrointestinal and deep vein thrombosis prophylaxis. Discussion done with Dr. Denis Currie. We will followup. Rosalinda Onofre MD Psychiatric # [id number] MTDD
[2017-04-17] MEDS: Multivitamin Vitamin B Complex (Nephro-Vite) Tab PO SCH (09:52)
[2017-04-17] MEDS: Epoetin Alfa 10,000 unit/ml Dialysis IV SCH (11:38)
--- NOTE | 2017-04-17 12:06 | CP.PCM.PN ---
Subjective - Date & Time of Evaluation Date of Evaluation: 04/17/17 Time of Evaluation: 09:30 - Subjective Subjective: 86 year old female patient seen at bedside regarding B/L leg edema and b/l feet gangrene. Patient seen resting comfortably in bed and in NAD. Her daughter was at bedside during dressing change. Daughter states that she spoke with Dr. Clark and they are considering surgery. Patient is in pain when her feet and legs are touched. Denies n/v/f/c/sob/cp. Objective - Vital Signs/Intake and Output Vital Signs (last 24 hours): Temp Pulse Resp BP Pulse Ox 97.4 F L 83 18 95/55 L 93 L 04/17/17 10:05 04/17/17 11:25 04/17/17 10:25 04/17/17 11:25 04/17/17 10:25 - Medications Medications: Current Medications Calcium Acetate (Phoslo) 667 mg PO DAILY [facility] Last Admin: 04/17/17 09:50 Dose: 667 mg Epoetin Kailash (Procrit) 10,000 unit IV TTS [facility] Last Admin: 04/17/17 11:38 Dose: 10,000 unit Ergocalciferol (Drisdol 50,000 Intl Units Cap) 1 cap PO Q7D [facility] Last Admin: 04/12/17 21:13 Dose: 1 cap Hydromorphone HCl (Dilaudid) 1 mg IVP Q4H PRN PRN Reason: Pain, severe (8-10) Last Admin: 04/17/17 09:51 Dose: 1 mg Metronidazole 250 mg/ (Miscellaneous) 50 mls @ 100 mls/hr IVPB Q8 [facility] Last Admin: 04/17/17 05:30 Dose: 100 mls/hr Gentamicin Sulfate/Sodium Chloride (Gentamicin Iv 80 Mg Premix) 80 mg in 100 mls @ 100 mls/hr IVPB MWF [facility] Vancomycin HCl 500 mg/ Sodium (Chloride) 100 mls @ 100 mls/hr IVPB MWF [facility] Insulin Human Regular (Novolin R) 0 unit SC ACHS [facility] PRN Reason: Protocol Last Admin: 04/17/17 08:28 Dose: Not Given Lactulose (Enulose) 30 gm PO DAILY [facility] Last Admin: 04/16/17 13:42 Dose: 30 gm Levothyroxine Sodium (Synthroid) 50 mcg PO DAILY@0630 [facility] Last Admin: 04/16/17 05:55 Dose: 50 mcg Vitamin B Complex/Vit C/Folic Acid (Nephro-Nandini) 1 tab PO 0800 [facility] Last Admin: 04/17/17 09:52 Dose: 1 tab Zolpidem Tartrate (Ambien) 5 mg PO HS PRN PRN Reason: Insomnia - Labs Labs: 04/15/17 08:20 04/15/17 08:20 PT 12.5 SECONDS (9.7-12.2) H 04/10/17 17:59 INR 1.1 04/10/17 17:59 APTT 37 SECONDS (21-34) H 04/10/17 17:59 - Constitutional Appears: Non-toxic, No Acute Distress, Chronically Ill - Extremities Exam Additional comments: Bilateral Lower extremity focused exam: VASC: DP and PT pulses non-palpable b/l. CFT > 3 seconds to all digits. Skin temperature cold to cold from mid-leg to distal toes. +1 pitting edema noted b/ l legs DERM: Right foot- Chronic dry gangrenous changes noted to entirety of first and second digits. First interspace has wound with rivers, soupy tissue noted. Probe to bone is positive at this site. Abrasion noted to extend dorsally from the wound with base >90% fibrotic. Skin appears friable with visible ischemic changes. Left foot- Chronic dry gangrenous changes noted to entirety of left hallux, distal half of second digit, distal tip and base of third digit, and increase in gangrenous changes on distal aspects of fourth and fifth digits. Demarcation of chronic ischemic changes noted to entire distal half of foot consisting of superficial abrasions and possible exposed tendon on dorsum of 3rd metatarsal. Skin appears friable with visible ischemic changes. NEURO: unable to assess due ORTHO: pain on palpation during dressing changes - Neurological Exam Neurological Exam: Alert, Awake - Psychiatric Exam Psychiatric exam: Normal Affect, Normal Mood Assessment and Plan - Assessment and Plan (Free Text) Assessment: 86 year old female seen at bedside with LE pitting edema and gangrene to feet b/ l secondary to DM, PVD Plan: Patient examined and evaluated at bedside Discussed with attending Dr. Kamara Chart, labs, vitals reviewed LE dressed with betadine gauze,4x4, kerlix Patient to continue IV abx per ID Continue pain management as per medicine Vascular consulted- planning for AKA later this week Podiatry will continue to follow patient while in house
--- NOTE | 2017-04-17 17:10 | CP.PCM.PN ---
Subjective - Date & Time of Evaluation Date of Evaluation: 04/17/17 Time of Evaluation: 06:45 - Subjective Subjective: Vascular Surgery- Dr. Clark Pt S&E at bedside this AM. No acute events overnight. Family at bedside. Family states pt denies f/c cp/sob n/v/d. Podiatry dressing changes today. Objective - Vital Signs/Intake and Output Vital Signs (last 24 hours): Temp Pulse Resp BP Pulse Ox 97.4 F L 80 20 108/62 95 04/17/17 15:46 04/17/17 15:46 04/17/17 15:46 04/17/17 15:46 04/17/17 15:46 - Medications Medications: Current Medications Calcium Acetate (Phoslo) 667 mg PO DAILY [facility] Last Admin: 04/17/17 09:50 Dose: 667 mg Epoetin Kailash (Procrit) 10,000 unit IV TTS [facility] Last Admin: 04/17/17 11:38 Dose: 10,000 unit Ergocalciferol (Drisdol 50,000 Intl Units Cap) 1 cap PO Q7D [facility] Last Admin: 04/12/17 21:13 Dose: 1 cap Hydromorphone HCl (Dilaudid) 1 mg IVP Q4H PRN PRN Reason: Pain, severe (8-10) Last Admin: 04/17/17 15:07 Dose: 1 mg Metronidazole 250 mg/ (Miscellaneous) 50 mls @ 100 mls/hr IVPB Q8 [facility] Last Admin: 04/17/17 15:00 Dose: 100 mls/hr Gentamicin Sulfate/Sodium Chloride (Gentamicin Iv 80 Mg Premix) 80 mg in 100 mls @ 100 mls/hr IVPB MWF [facility] Vancomycin HCl 500 mg/ Sodium (Chloride) 100 mls @ 100 mls/hr IVPB F [facility] Insulin Human Regular (Novolin R) 0 unit SC ACHS [facility] PRN Reason: Protocol Last Admin: 04/17/17 12:30 Dose: Not Given Lactulose (Enulose) 30 gm PO DAILY [facility] Last Admin: 04/17/17 15:06 Dose: 30 gm Levothyroxine Sodium (Synthroid) 50 mcg PO DAILY@0630 [facility] Last Admin: 04/16/17 05:55 Dose: 50 mcg Vitamin B Complex/Vit C/Folic Acid (Nephro-Nandini) 1 tab PO 0800 [facility] Last Admin: 04/17/17 09:52 Dose: 1 tab Zolpidem Tartrate (Ambien) 5 mg PO HS PRN PRN Reason: Insomnia - Labs Labs: 04/15/17 08:20 04/15/17 08:20 PT 12.5 SECONDS (9.7-12.2) H 04/10/17 17:59 INR 1.1 04/10/17 17:59 APTT 37 SECONDS (21-34) H 04/10/17 17:59 - Constitutional Appears: Unkempt - Head Exam Head Exam: ATRAUMATIC - ENT Exam ENT Exam: Mucous Membranes Moist - Respiratory Exam Respiratory Exam: NORMAL BREATHING PATTERN. absent: Accessory Muscle Use, Rhonchi - Cardiovascular Exam Cardiovascular Exam: +S1, +S2 - GI/Abdominal Exam GI & Abdominal Exam: Soft. absent: Distended, Tenderness - Extremities Exam Additional comments: Dressing c/d/i b/l - Neurological Exam Neurological Exam: Altered Additional comments: does not speak estonian refuses to talk - Skin Skin Exam: Warm Assessment and Plan - Assessment and Plan (Free Text) Assessment: 86F b/l LE leg wound Plan: - c/w antibotics - plan for surgery tomorrow - further recs per Dr. Clark - optimize pt for surgery Issac quan PGY1
--- NOTE | 2017-04-17 22:30 | CP.PCM.PN ---
Subjective - Date & Time of Evaluation Date of Evaluation: 04/17/17 Time of Evaluation: 13:00 - Subjective Subjective: SEEN ON RENAL F/U SEEN ON HD BP DROPPED WAS GIVEN [place] FOR DAVID AKA IN AM ?? PER SURGERY Objective - Vital Signs/Intake and Output Vital Signs (last 24 hours): Temp Pulse Resp BP Pulse Ox 97.4 F L 80 20 108/62 95 04/17/17 15:46 04/17/17 15:46 04/17/17 15:46 04/17/17 15:46 04/17/17 15:46 - Medications Medications: Current Medications Calcium Acetate (Phoslo) 667 mg PO DAILY [facility] Last Admin: 04/17/17 09:50 Dose: 667 mg Epoetin Kailash (Procrit) 10,000 unit IV TTS [facility] Last Admin: 04/17/17 11:38 Dose: 10,000 unit Ergocalciferol (Drisdol 50,000 Intl Units Cap) 1 cap PO Q7D [facility] Last Admin: 04/12/17 21:13 Dose: 1 cap Hydromorphone HCl (Dilaudid) 1 mg IVP Q4H PRN PRN Reason: Pain, severe (8-10) Last Admin: 04/17/17 15:07 Dose: 1 mg Metronidazole 250 mg/ (Miscellaneous) 50 mls @ 100 mls/hr IVPB Q8 [facility] Last Admin: 04/17/17 22:10 Dose: 100 mls/hr Gentamicin Sulfate/Sodium Chloride (Gentamicin Iv 80 Mg Premix) 80 mg in 100 mls @ 100 mls/hr IVPB MWF [facility] Vancomycin HCl 500 mg/ Sodium (Chloride) 100 mls @ 100 mls/hr IVPB MWF [facility] Insulin Human Regular (Novolin R) 0 unit SC ACHS [facility] PRN Reason: Protocol Last Admin: 04/17/17 17:00 Dose: Not Given Lactulose (Enulose) 30 gm PO DAILY [facility] Last Admin: 04/17/17 15:06 Dose: 30 gm Levothyroxine Sodium (Synthroid) 50 mcg PO DAILY@0630 [facility] Last Admin: 04/16/17 05:55 Dose: 50 mcg Vitamin B Complex/Vit C/Folic Acid (Nephro-Nandini) 1 tab PO 0800 [facility] Last Admin: 04/17/17 09:52 Dose: 1 tab Zolpidem Tartrate (Ambien) 5 mg PO HS PRN PRN Reason: Insomnia - Labs Labs: 04/15/17 08:20 04/15/17 08:20 PT 12.5 SECONDS (9.7-12.2) H 04/10/17 17:59 INR 1.1 04/10/17 17:59 APTT 37 SECONDS (21-34) H 04/10/17 17:59 Assessment and Plan - Assessment and Plan (Free Text) Assessment: ESRD ON HD M W F .. TO BE C/O ANEMIA OF CKD .. ON EPO FOR DAVID AKA ' C/O CURRENT CARE
--- NOTE | 2017-04-18 00:12 | CP.PCM.PN ---
Subjective - Date & Time of Evaluation Date of Evaluation: 04/17/17 Time of Evaluation: 11:00 - Subjective Subjective: 86 year old female patient seen at bedside regarding B/L leg edema and b/l feet gangrene. Patient seen resting comfortably in bed and in NAD. Her daughter was at bedside during dressing change. Daughter states that she spoke with Dr. Clark and they are considering surgery. Patient is in pain when her feet and legs are touched. Denies n/v/f/c/sob/cp. Objective - Vital Signs/Intake and Output Vital Signs (last 24 hours): Temp Pulse Resp BP Pulse Ox 97.4 F L 80 20 108/62 95 04/17/17 15:46 04/17/17 15:46 04/17/17 15:46 04/17/17 15:46 04/17/17 15:46 - Medications Medications: Current Medications Calcium Acetate (Phoslo) 667 mg PO DAILY [facility] Last Admin: 04/17/17 09:50 Dose: 667 mg Epoetin Kailash (Procrit) 10,000 unit IV TTS [facility] Last Admin: 04/17/17 11:38 Dose: 10,000 unit Ergocalciferol (Drisdol 50,000 Intl Units Cap) 1 cap PO Q7D [facility] Last Admin: 04/12/17 21:13 Dose: 1 cap Hydromorphone HCl (Dilaudid) 1 mg IVP Q4H PRN PRN Reason: Pain, severe (8-10) Last Admin: 04/17/17 15:07 Dose: 1 mg Metronidazole 250 mg/ (Miscellaneous) 50 mls @ 100 mls/hr IVPB Q8 [facility] Last Admin: 04/17/17 22:10 Dose: 100 mls/hr Gentamicin Sulfate/Sodium Chloride (Gentamicin Iv 80 Mg Premix) 80 mg in 100 mls @ 100 mls/hr IVPB MWF [facility] Vancomycin HCl 500 mg/ Sodium (Chloride) 100 mls @ 100 mls/hr IVPB MWF [facility] Insulin Human Regular (Novolin R) 0 unit SC ACHS [facility] PRN Reason: Protocol Last Admin: 04/17/17 17:00 Dose: Not Given Lactulose (Enulose) 30 gm PO DAILY [facility] Last Admin: 04/17/17 15:06 Dose: 30 gm Levothyroxine Sodium (Synthroid) 50 mcg PO DAILY@0630 [facility] Last Admin: 04/16/17 05:55 Dose: 50 mcg Vitamin B Complex/Vit C/Folic Acid (Nephro-Nandini) 1 tab PO 0800 [facility] Last Admin: 04/17/17 09:52 Dose: 1 tab Zolpidem Tartrate (Ambien) 5 mg PO HS PRN PRN Reason: Insomnia - Labs Labs: 04/15/17 08:20 04/15/17 08:20 PT 12.5 SECONDS (9.7-12.2) H 04/10/17 17:59 INR 1.1 04/10/17 17:59 APTT 37 SECONDS (21-34) H 04/10/17 17:59 - Constitutional Appears: Well - Head Exam Head Exam: ATRAUMATIC, NORMAL INSPECTION, NORMOCEPHALIC - Eye Exam Eye Exam: EOMI, Normal appearance, PERRL Pupil Exam: NORMAL ACCOMODATION, PERRL - ENT Exam ENT Exam: Mucous Membranes Moist, Normal Exam - Neck Exam Neck Exam: Full ROM, Normal Inspection. absent: Lymphadenopathy - Respiratory Exam Respiratory Exam: Clear to Ausculation Bilateral, NORMAL BREATHING PATTERN - Cardiovascular Exam Cardiovascular Exam: REGULAR RHYTHM, +S1, +S2. absent: Murmur - GI/Abdominal Exam GI & Abdominal Exam: Soft, Normal Bowel Sounds. absent: Tenderness - Rectal Exam Rectal Exam: NORMAL INSPECTION - Exam Exam: Circumcision, NORMAL INSPECTION External exam: NORMAL EXTERNAL EXAM Speculum exam: NORMAL SPECULUM EXAM Bimanual exam: NORMAL BIMANUAL EXAM - Extremities Exam Extremities Exam: Full ROM, Pedal Edema, Tenderness. absent: Joint Swelling - Back Exam Back Exam: NORMAL INSPECTION - Neurological Exam Neurological Exam: Alert, Awake, CN II-XII Intact, Normal Gait, Oriented x3 - Psychiatric Exam Psychiatric exam: Normal Affect, Normal Mood - Skin Skin Exam: Dry, Intact, Normal Color, Warm Assessment and Plan - Assessment and Plan (Free Text) Assessment: Assessment: 86 year old female seen at bedside with LE pitting edema and gangrene to feet b/ l secondary to DM, PVD Plan: Patient examined and evaluated at bedside Discussed with son , standing on the bed side , Chart, labs, vitals reviewed LE dressed with betadine gauze,4x4, kerlix Patient to continue IV abx per ID Continue pain management with dilauded Vascular consulted- planning for AKA , Podiatry will continue to follow patient while in house
--- NOTE | 2017-04-18 05:16 | CP.PCM.PN ---
Subjective - Date & Time of Evaluation Date of Evaluation: 04/18/17 Time of Evaluation: 05:16 - Subjective Subjective: CHIEF COMPLAINTS TODAY : 04/17/17 LATE ENTRY AFEBRILE AWAKE DAUGHTER AND SON BY THE SIDE. Seen by vascular surgery as per request family members, For amputation bilateral above-knee amputation ON SUNDAY Patient with gangrene and maggots. ROS. - OBSERVED HEENT : N. Resp : No cough, wheezing ,pleuritic CP ,or hemoptysis Cardio : No anginal CP, PND, orthopnea, palpitation GI : No abd.pain, n/v ,diarrhea or GI bleeding . CROP NUTRITION SCIENTIST : No headache, vertigo, focal deficit. Musculoskel : No joint swelling , Derm : No rash Psych : Normal affect. Ext : BILATERAL LOWER EXTREMITIES AND DRESSINGS/TOES GANGRENOUS. PE. Pt. RESTING in no distress. V.S As noted in the chart Head ,ear nose,throat and eyes : Normal. Neck : Supple with normal carotids. Lungs: Clear air entry. Heart : S1 & S2 normal with S4. No murmur. Abd : Soft non tender with normal bowel sounds. Neuro : Moves all ext. with no localized deficit. Ext : BILATERAL LOWER EXTREMITIES IN DRESSING/BILATERAL TOES GANGRENOUS Derm : No rashes or decubitus ulcer. LABS/RADIOLOGY: wbc 17.2,-->18.9 h&h 10.9 CREATININE 2.2/BUN36 LFT N TSH 22.50-ELEVATED bLOOD CULTURES 04/10/17-VE TO DATE Objective - Vital Signs/Intake and Output Vital Signs (last 24 hours): Temp Pulse Resp BP Pulse Ox 97.5 F L 78 20 116/66 99 04/18/17 00:00 04/18/17 00:00 04/18/17 00:00 04/18/17 00:00 04/18/17 00:00 - Medications Medications: Current Medications Calcium Acetate (Phoslo) 667 mg PO DAILY [facility] Last Admin: 04/17/17 09:50 Dose: 667 mg Epoetin Kailash (Procrit) 10,000 unit IV TTS [facility] Last Admin: 04/17/17 11:38 Dose: 10,000 unit Ergocalciferol (Drisdol 50,000 Intl Units Cap) 1 cap PO Q7D [facility] Last Admin: 04/12/17 21:13 Dose: 1 cap Hydromorphone HCl (Dilaudid) 1 mg IVP Q4H PRN PRN Reason: Pain, severe (8-10) Last Admin: 04/17/17 15:07 Dose: 1 mg Metronidazole 250 mg/ (Miscellaneous) 50 mls @ 100 mls/hr IVPB Q8 [facility] Last Admin: 04/17/17 22:10 Dose: 100 mls/hr Gentamicin Sulfate/Sodium Chloride (Gentamicin Iv 80 Mg Premix) 80 mg in 100 mls @ 100 mls/hr IVPB MWF [facility] Vancomycin HCl 500 mg/ Sodium (Chloride) 100 mls @ 100 mls/hr IVPB [facility] Insulin Human Regular (Novolin R) 0 unit SC ACHS [facility] PRN Reason: Protocol Last Admin: 04/17/17 17:00 Dose: Not Given Lactulose (Enulose) 30 gm PO DAILY [facility] Last Admin: 04/17/17 15:06 Dose: 30 gm Levothyroxine Sodium (Synthroid) 50 mcg PO DAILY@0630 [facility] Last Admin: 04/16/17 05:55 Dose: 50 mcg Vitamin B Complex/Vit C/Folic Acid (Nephro-Nandini) 1 tab PO 0800 [facility] Last Admin: 04/17/17 09:52 Dose: 1 tab Zolpidem Tartrate (Ambien) 5 mg PO HS PRN PRN Reason: Insomnia - Labs Labs: 04/15/17 08:20 04/15/17 08:20 PT 12.5 SECONDS (9.7-12.2) H 04/10/17 17:59 INR 1.1 04/10/17 17:59 APTT 37 SECONDS (21-34) H 04/10/17 17:59 Assessment and Plan (1) Bilateral cellulitis of lower leg Status: Acute (2) Gangrene Assessment & Plan: PATIENT FOR BILATERAL ABOVE-KNEE AMPUTATION on as per Dr. Clark. PATIENT WITH BILATERAL ISCHEMIC GANGRENE WITH SUPERINFECTION WITH MAGGOTS. aS PER FAMILY CONTINUE iv VANCOMYCIN 500 MG POST EACH HEMODIALYSIS.MWF POST HD X 5 DOSES cONTINUE iv GENTAMICIN 80 MG POST EACH HEMODIALYSIS. DOSES continue IV Flagyl 500 every 12 hourly for anaerobic coverage for now. Status: Acute (3) ESRD (end stage renal disease) on dialysis Assessment & Plan: patient on hemodialysis MWF. Status: Acute (4) Anemia Status: Chronic (5) DM2 (diabetes mellitus, type 2) Status: Chronic
[2017-04-18] MEDS: metroNIDAZOLE IV 500 mg/100 ml 250 MG in Premixed IV 1 EA IVPB SCH ×3 (06:00→21:47)
[2017-04-18] MEDS: Levothyroxine 50 MCG TAB PO SCH (06:00)
--- NOTE | 2017-04-18 07:17 | PN ---
SUBJECTIVE: I went to see her twice today. I spoke personally with the son, Christophe Caldwell, at the bedside. He was upset because the mother has been having severe pain, excruciating pain at times despite parenteral narcotic analgesia. He told me that finally sisters and mother agreed to proceed with surgery to amputate both lower extremities due to severe gangrenous both feet, severe peripheral vascular disease. There appears to be no cardiopulmonary distress, no respiratory embarrassment. She is not eating well because of the pain. REVIEW OF SYSTEMS: Otherwise negative. PHYSICAL EXAMINATION: GENERAL: Moaning and groaning because of the pain. Once she gets medicated she fall asleep quite while until the next round of medication. VITAL SIGNS: Remain fairly stable. Blood pressure of 130 to 135/70, heart rate is regular at about 80 per minute, respiratory rate appears unremarkable, especially when she is using narcotic analgesia with Dilaudid. SKIN: Remains dry with gangrenosum in both feet which are covered and protecting with boots. HEAD, EARS, NOSE, AND THROAT: Relatively clear for age. NECK: Supple. Jugular vein not distended. HEART: Sounds normal in intensity and regular. LUNGS: No significant adventitious sounds, but is not cooperating well. ABDOMEN: Relatively benign. SUPPORT TEAM ASSOC: When awake and trying to speak with her, she is moving the lower extremities and communicates with her son, Christophe, without any problems. Lab data yesterday reviewed. Nothing major reported to date. She is going to be dialyzed tomorrow. She was dialyzed on Sunday. I had a long conversation with the son, who mentioned once again that they were in agreement to proceed with surgery. In this case, I communicated with Dr. Onofre, the corporate bond trader of record in the case and I spoke with her that I had approached and communicated with Dr. Clark as requested by the family to proceed with surgery. At this point in time, she appears cardiologically stable that she is going to proceed with surgery. Obviously, this is a very risky proposition in a 89 real age suffering from multiple end-stage processes, which include the end-stage renal disease, congestive heart failure, hypertensive heart disease, coronary atherosclerosis, etc. etc. The son understands this situation quite well and they are all agreeable to proceed with surgery. Risks and complications including as expected, but hopefully, she will do well. Important to understand, I am proceeding with caution with intravenous fluids and all medications have to be readjusted after surgery as she is going to be losing significant amount of body surface area after amputation of both lower extremities probably above the knee, one has to be extremely careful with any kind of intravenous fluids as well as piggyback. Denis Currie MD MTDD
[2017-04-18] MEDS: (Novolin R) Insulin Human Regular 100 units/ml vial SC SCH ×4 (07:53→21:52)
[2017-04-18] MEDS: Multivitamin Vitamin B Complex (Nephro-Vite) Tab PO SCH (07:57)
--- NOTE | 2017-04-18 09:25 | CP.PCM.PN ---
Subjective - Date & Time of Evaluation Date of Evaluation: 04/18/17 Time of Evaluation: 09:25 - Subjective Subjective: 86 year old female patient seen at bedside regarding b/l feet gangrene. Patient seen resting comfortably in bed and in NAD. Her daughter was at bedside during dressing change. Daughter states that she spoke with Dr. Clark and patient is to have b/l aka tomorrow. Patient is in pain when her feet and legs are touched. Denies n/v/f/c/sob/cp. Objective - Vital Signs/Intake and Output Vital Signs (last 24 hours): Temp Pulse Resp BP Pulse Ox 98.3 F 77 20 137/69 98 04/18/17 07:49 04/18/17 07:49 04/18/17 07:49 04/18/17 07:49 04/18/17 07:49 - Medications Medications: Current Medications Calcium Acetate (Phoslo) 667 mg PO DAILY [facility] Last Admin: 04/17/17 09:50 Dose: 667 mg Epoetin Kailash (Procrit) 10,000 unit IV TTS [facility] Last Admin: 04/17/17 11:38 Dose: 10,000 unit Ergocalciferol (Drisdol 50,000 Intl Units Cap) 1 cap PO Q7D [facility] Last Admin: 04/12/17 21:13 Dose: 1 cap Hydromorphone HCl (Dilaudid) 1 mg IVP Q4H PRN PRN Reason: Pain, severe (8-10) Last Admin: 04/17/17 15:07 Dose: 1 mg Metronidazole 250 mg/ (Miscellaneous) 50 mls @ 100 mls/hr IVPB Q8 [facility] Last Admin: 04/18/17 06:00 Dose: 100 mls/hr Gentamicin Sulfate/Sodium Chloride (Gentamicin Iv 80 Mg Premix) 80 mg in 100 mls @ 100 mls/hr IVPB MWF [facility] Vancomycin HCl 500 mg/ Sodium (Chloride) 100 mls @ 100 mls/hr IVPB MWF [facility] Insulin Human Regular (Novolin R) 0 unit SC ACHS [facility] PRN Reason: Protocol Last Admin: 04/18/17 07:53 Dose: Not Given Lactulose (Enulose) 30 gm PO DAILY [facility] Last Admin: 04/17/17 15:06 Dose: 30 gm Levothyroxine Sodium (Synthroid) 50 mcg PO DAILY@0630 [facility] Last Admin: 04/18/17 06:00 Dose: 50 mcg Vitamin B Complex/Vit C/Folic Acid (Nephro-Nandini) 1 tab PO 0800 [facility] Last Admin: 04/18/17 07:57 Dose: 1 tab Zolpidem Tartrate (Ambien) 5 mg PO HS PRN PRN Reason: Insomnia - Labs Labs: 04/15/17 08:20 04/15/17 08:20 PT 12.5 SECONDS (9.7-12.2) H 04/10/17 17:59 INR 1.1 04/10/17 17:59 APTT 37 SECONDS (21-34) H 04/10/17 17:59 - Constitutional Appears: Non-toxic, No Acute Distress - Extremities Exam Additional comments: Bilateral Lower extremity focused exam: VASC: DP and PT pulses non-palpable b/l. CFT > 3 seconds to all digits. Skin temperature cold to cold from mid-leg to distal toes. No edema noted, relaxed skin tension lines are visible. DERM: Right foot- Chronic dry gangrenous changes noted to entirety of first and second digits. First interspace has wound with dark with open ulceration. Probe to bone is positive at this site. Abrasion noted to extend dorsally from the wound with base >90% fibrotic. Skin appears friable with visible ischemic changes. Left foot- Chronic dry gangrenous changes noted to entirety of left hallux, distal half of second digit, distal tip and base of third digit, and increase in gangrenous changes on distal aspects of fourth and fifth digits. Demarcation of chronic ischemic changes noted to entire distal half of foot consisting of exposed tendon on dorsum of 3rd metatarsal. Dorsal aspect of foot is boggy. Skin appears friable with visible ischemic changes. NEURO: unable to assess due ORTHO: pain on palpation during dressing changes - Neurological Exam Neurological Exam: Alert, Awake - Psychiatric Exam Psychiatric exam: Normal Affect, Normal Mood Assessment and Plan - Assessment and Plan (Free Text) Assessment: 86 year old female seen at bedside gangrene to feet b/l secondary to DM, PVD Plan: Patient examined and evaluated at bedside Discussed with attending Dr. Kamara Chart, labs, vitals reviewed LE dressed with betadine gauze,4x4, kerlix Patient to continue IV abx per ID Continue pain management as per medicine Vascular consulted- planning for AKA tomorrow
[2017-04-18] MEDS ORDERED: HYDROmorphone 0.5 mg/0.5 ml ISec IVP STA ×2 (09:29→11:43)
[2017-04-18] MEDS: Gentamicin 80 mg in 0.9% NS 80 MG/100 ML BAG IVPB SCH (09:50)
--- NOTE | 2017-04-18 12:10 | CP.PCM.PN ---
Subjective - Date & Time of Evaluation Date of Evaluation: 04/18/17 Time of Evaluation: 07:30 - Subjective Subjective: General Surgery Note Patient was seen and examined at bedside. Patient denies nausea, vomiting, fever , chills, chest pain and SOB. Patient has no new complaints. Objective - Vital Signs/Intake and Output Vital Signs (last 24 hours): Temp Pulse Resp BP Pulse Ox 98.3 F 77 20 137/69 98 04/18/17 07:49 04/18/17 07:49 04/18/17 07:49 04/18/17 07:49 04/18/17 07:49 - Medications Medications: Current Medications Calcium Acetate (Phoslo) 667 mg PO DAILY [facility] Last Admin: 04/18/17 09:46 Dose: 667 mg Epoetin Kailash (Procrit) 10,000 unit IV TTS [facility] Last Admin: 04/17/17 11:38 Dose: 10,000 unit Ergocalciferol (Drisdol 50,000 Intl Units Cap) 1 cap PO Q7D [facility] Last Admin: 04/12/17 21:13 Dose: 1 cap Hydromorphone HCl (Dilaudid) 1 mg IVP Q4H PRN PRN Reason: Pain, severe (8-10) Last Admin: 04/17/17 15:07 Dose: 1 mg Metronidazole 250 mg/ (Miscellaneous) 50 mls @ 100 mls/hr IVPB Q8 [facility] Last Admin: 04/18/17 06:00 Dose: 100 mls/hr Gentamicin Sulfate/Sodium Chloride (Gentamicin Iv 80 Mg Premix) 80 mg in 100 mls @ 100 mls/hr IVPB MWF [facility] Last Admin: 04/18/17 09:50 Dose: 100 mls/hr Vancomycin HCl 500 mg/ Sodium (Chloride) 100 mls @ 100 mls/hr IVPB MWF [facility] Insulin Human Regular (Novolin R) 0 unit SC ACHS [facility] PRN Reason: Protocol Last Admin: 04/18/17 07:53 Dose: Not Given Lactulose (Enulose) 30 gm PO DAILY [facility] Last Admin: 04/18/17 09:46 Dose: 30 gm Levothyroxine Sodium (Synthroid) 50 mcg PO DAILY@0630 [facility] Last Admin: 04/18/17 06:00 Dose: 50 mcg Vitamin B Complex/Vit C/Folic Acid (Nephro-Nandini) 1 tab PO 0800 [facility] Last Admin: 04/18/17 07:57 Dose: 1 tab Zolpidem Tartrate (Ambien) 5 mg PO HS PRN PRN Reason: Insomnia - Labs Labs: 04/15/17 08:20 04/15/17 08:20 PT 12.5 SECONDS (9.7-12.2) H 04/10/17 17:59 INR 1.1 04/10/17 17:59 APTT 37 SECONDS (21-34) H 04/10/17 17:59 - Constitutional Appears: Well, No Acute Distress - Head Exam Head Exam: ATRAUMATIC - Eye Exam Eye Exam: EOMI, Normal appearance - Respiratory Exam Respiratory Exam: Clear to Ausculation Bilateral, NORMAL BREATHING PATTERN - Cardiovascular Exam Cardiovascular Exam: REGULAR RHYTHM, +S1, +S2 - GI/Abdominal Exam GI & Abdominal Exam: Soft, Normal Bowel Sounds - Extremities Exam Additional comments: Bilateral leg dressing clean, dry and intact - Neurological Exam Neurological Exam: Alert, Awake Assessment and Plan - Assessment and Plan (Free Text) Assessment: 86F b/l LE leg wound Plan: - Plan for bilateral AKA tomorrow -Continue with antibiotics -Continue with dressing changes by podiatry -Optimize patient for surgery - Further recommendation per Dr. Amber Newell, PGY -1
--- NOTE | 2017-04-18 14:29 | CP.PCM.CON ---
History of Present Illness - History of Present Illness History of Present Illness: Palliative consult Requested by Kingston MATA per family's request Reason: Goals of care discussion and family support I got phone call from patient's daughter who lives in [place] asking for palliative care for her mother. After discussing it with Doctor Kingston the Palliative consult requested. Patient is a 86 yo female admitted from home with worsening pain of LEs. Patient admitted from management of LEs gangrene, possible Sx and pain management. Before this admission, patient was treated at [facility] when the amputation of gangrenous LEs was suggested as the last option, but patient refused it. On this admission , after angiogram, and consulting Doctor Amber, patient and family agreed with amputation Sx, scheduled for tomorrow morning. PMH: ESKD with HD, DM, HTN, TIA, periferal edema Soc. Hx: Lives home alone with elderly and aid from [facility] visiting services, one daughter is dentist and lives in [place], other daughter lives in [place], and the son is near by. The entire family is very involved in care of this patient. Family has consider the hospice care for the patient, 3 X so far, but changed their minds each time, since it would involved the cessation of HD and most likely , fam . Hx: unknown Review of Systems - Constitutional Constitutional: Malaise - EENT Eyes: absent: As Per HPI, Blind Spots, Blurred Vision, Change in Vision, Decreased Night Vision, Diplopia, Discharge, Dry Eye, Exophthalmos, Floaters, Irritation, Itchy Eyes, Loss of Peripheral Vision, Pain, Photophobia, Requires Corrective Lenses, Sees Flashes, Spots in Vision, Tunnel Vision, Other Visual Disturbances, Loss of Vision, Other Ears: absent: As Per HPI, Decreased Hearing, Ear Discharge, Ear Pain, Tinnitus, Abnormal Hearing, Disequilibrium, Dizziness, Other Nose/Mouth/Throat: absent: As Per HPI, Epistaxis, Nasal Congestion, Nasal Discharge, Nasal Obstruction, Nasal Trauma, Nose Pain, Post Nasal Drip, Sinus Pain, Sinus Pressure, Bleeding Gums, Change in Voice, Dental Pain, Dry Mouth, Dysphagia, Halitosis, Hoarsness, Lip Swelling, Mouth Lesions, Mouth Pain, Odynophagia, Sore Throat, Throat Swelling, Tongue Swelling, Facial Pain, Neck Pain, Neck Mass, Other - Breasts Breasts: absent: As Per HPI, Change in Shape, Mass, Pain, Nipple Discharge, Nipple Inversion, Skin Changes, Swelling, Other - Cardiovascular Cardiovascular: Leg Ulcers, Rapid Heart Rate - Respiratory Respiratory: absent: As Per HPI, Cough, Dyspnea, Hemoptysis, Dyspnea on Exertion , Wheezing, Snoring, Stridor, Pain on Inspiration, Chest Congestion, Excessive Mucous Production, Change in Mucous Color, Pain with Coughing, Other - Gastrointestinal Gastrointestinal: absent: As Per HPI, Abdominal Pain, Belching, Bloating, Change in Bowel Habits, Change in Stool Character, Coffee Ground Emesis, Constipation, Cramping, Diarrhea, Dyspepsia, Dysphagia, Early Satiety, Excessive Flatus, Fecal Incontinence, Heartburn, Hematemesis, Hematochezia, Loose Stools, Melena, Nausea, Odynophagia, Temesmus, Vomiting, Other - Genitourinary Additional comments: HD - Reproductive: Female Reproductive:Female: Post Menopausal - Menstruation Menstruation: Post Menopausal - Musculoskeletal Musculoskeletal: Abnormal Gait, Deformity, Limited Range of Motion, Muscle Weakness - Integumentary Integumentary: Bleeding Lesions, Non-Healing Lesions, Skin Ulcer - Neurological Neurological: Weakness - Psychiatric Psychiatric: Anxiety, Memory Loss - Endocrine Endocrine: Fatigue - Hematologic/Lymphatic Hematologic: Easy Bruising Past Patient History - Infectious Disease Hx of Infectious Diseases: None - Tetanus Immunizations Tetanus Immunization: Unknown - Past Medical History & Family History Past Medical History?: Yes - Past Social History Smoking Status: Never Smoked - CARDIAC Hx Hypercholesterolemia: Yes Hx Hypertension: Yes - PULMONARY Hx Sleep Apnea: Yes - NEUROLOGICAL HX Cerebrovascular Accident: Yes (CVA, TIA) - HEENT Hx HEENT Problems: Yes Hx Blind: No Hx Cataracts: Yes 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.) - RENAL Hx Renal Failure: Yes (ESRD, HD) - ENDOCRINE/METABOLIC Hx Diabetes Mellitus Type 2: Yes - HEMATOLOGICAL/ONCOLOGICAL Hx Anemia: Yes Hx Blood Transfusions: Yes Hx Blood Transfusion Reaction: No - INTEGUMENTARY Hx Dermatological Problems: No - MUSCULOSKELETAL/RHEUMATOLOGICAL Hx Arthritis: Yes (DJD, R THR) - GASTROINTESTINAL Hx Gastrointestinal Disorders: Yes (HX INTESTINAL OBSTUCTION NO SX) Hx Bowel Surgery: Yes (INTESTINAL OBSTRUCTION) - GENITOURINARY/GYNECOLOGICAL Hx Genitourinary Disorders: No - PSYCHIATRIC Hx Psychophysiologic Disorder: No Hx Substance Use: No - SURGICAL HISTORY Hx Surgeries: Yes Hx Arteriovenous Shunt: Yes (06/17/15) Hx Cataract Extraction: Yes Hx Hysterectomy: Yes Hx Open Reduction Internal Fixation: Yes (R HIP) Hx Orthopedic Surgery: Yes (Right hip replacement) Hx Vascular Surgery: Yes Hx Vascular Access Device: Yes (for dialysis) Other/Comment: PERMA CATH RIGHT - ANESTHESIA Hx Anesthesia: Yes Hx Anesthesia Reactions: No Hx Malignant Hyperthermia: No Meds Allergies/Adverse Reactions: Allergies Allergy/AdvReac Type Severity Reaction Status Date / Time No Known Allergies Allergy Verified 02/21/17 16:49 - Medications Medications: Current Medications Calcium Acetate (Phoslo) 667 mg PO DAILY [facility] Last Admin: 04/18/17 09:46 Dose: 667 mg Epoetin Kailash (Procrit) 10,000 unit IV TTS [facility] Last Admin: 04/17/17 11:38 Dose: 10,000 unit Ergocalciferol (Drisdol 50,000 Intl Units Cap) 1 cap PO Q7D [facility] Last Admin: 04/12/17 21:13 Dose: 1 cap Hydromorphone HCl (Dilaudid) 1 mg IVP Q4H PRN PRN Reason: Pain, severe (8-10) Last Admin: 04/17/17 15:07 Dose: 1 mg Metronidazole 250 mg/ (Miscellaneous) 50 mls @ 100 mls/hr IVPB Q8 [facility] Last Admin: 04/18/17 14:06 Dose: 100 mls/hr Gentamicin Sulfate/Sodium Chloride (Gentamicin Iv 80 Mg Premix) 80 mg in 100 mls @ 100 mls/hr IVPB MWF [facility] Last Admin: 04/18/17 09:50 Dose: 100 mls/hr Vancomycin HCl 500 mg/ Sodium (Chloride) 100 mls @ 100 mls/hr IVPB MWF [facility] Last Admin: 04/18/17 11:10 Dose: 100 mls/hr Insulin Human Regular (Novolin R) 0 unit SC ACHS [facility] PRN Reason: Protocol Last Admin: 04/18/17 12:00 Dose: Not Given Lactulose (Enulose) 30 gm PO DAILY [facility] Last Admin: 04/18/17 09:46 Dose: 30 gm Levothyroxine Sodium (Synthroid) 50 mcg PO DAILY@0630 [facility] Last Admin: 04/18/17 06:00 Dose: 50 mcg Vitamin B Complex/Vit C/Folic Acid (Nephro-Nandini) 1 tab PO 0800 [facility] Last Admin: 04/18/17 07:57 Dose: 1 tab Zolpidem Tartrate (Ambien) 5 mg PO HS PRN PRN Reason: Insomnia Physical Exam - Constitutional Appears: Chronically Ill - Head Exam Head Exam: ATRAUMATIC, NORMAL INSPECTION, NORMOCEPHALIC - Eye Exam Eye Exam: Normal appearance, PERRL Pupil Exam: NORMAL ACCOMODATION, PERRL - ENT Exam ENT Exam: Mucous Membranes Moist, Normal Exam - Neck Exam Neck exam: Positive for: Normal Inspection - Respiratory Exam Respiratory Exam: Decreased Breath Sounds, NORMAL BREATHING PATTERN - Cardiovascular Exam Cardiovascular Exam: Tachycardia, REGULAR RHYTHM - GI/Abdominal Exam GI & Abdominal Exam: Normal Bowel Sounds - Rectal Exam Rectal Exam: Deferred - Exam Additional comments: On HD - Extremities Exam Additional comments: Gangrene to both feet - Back Exam Back exam: NORMAL INSPECTION - Neurological Exam Neurological exam: Alert, Altered - Psychiatric Exam Psychiatric exam: Agitated - Skin Skin Exam: Mottled, Normal Color Results - Vital Signs Recent Vital Signs: Last Vital Signs Temp 98.3 F 04/18/17 07:49 Pulse 77 04/18/17 07:49 Resp 20 04/18/17 07:49 BP 137/69 04/18/17 07:49 Pulse Ox 98 04/18/17 07:49 - Labs Result Diagrams: 04/15/17 08:20 04/15/17 08:20 Labs: Laboratory Results - last 24 hr 04/17/17 04/17/17 04/18/17 16:39 21:31 06:15 POC Glucose (mg/dL) 78 113 H 78 04/18/17 11:24 POC Glucose (mg/dL) 133 H Assessment & Plan - Assessment and Plan (Free Text) Assessment: Palliative consult Code status DNR/DNI, copy of living will on chart, PPS 10% I reviewed medical records, all diagnostic studies, examined and interviewed patient in the bed with help from her daughter at bed side who translated. Patient is alert, appearing uncomfortable due to pain. Upon examination patient verbalized burning pain of LEs, but unable to give quantity. As per daughter, patient was very lethargic yesterday after Dilaudid 1 mg IV and requested only 0.5 mg today. The Dilaudid 0.5 mg Iv did not work well for the patient and she remained uncomfortable in pain. Breath sounds are diminished, there is no cough. Abdomen is soft, daughter reports patient has great appetite. Lower extremities are severely discolored with poor skin turgor and both feet wrapped with the cling. Goals of care discussed with the daughter at bed side. She stated that family came to common goal which is increased comfort for the patient. The family understands that removing the source of pain ( LEs) patient would most likely feel much more comfortable. Family is also aware of the risks that planned sx is holding and are willing to take it. Code status reviewed, and daughter confirmed DNR/DNI status as stated in the living will. Impression * This is an elderly patient with acute pain of chronic gangrene changes of LEs * pain partially responds to pain meds * Patient and family in agreement with planned amputation for tomorrow Suggestion * Continue pain management. I would give Dilaudid 0.5 mg Iv @ 2 hr for better pain control * DNR/DNI as per Living Will I will fallow patient after the surgery and support family during the process post Sx Thank you very much for consulting Palliative Care
--- NOTE | 2017-04-18 20:45 | PN ---
LOCATION: Room 563, bed 8. SUBJECTIVE: I went to see her this morning in anticipation for a surgery to amputate both lower extremities due to severe gangrene for weeks perhaps month now with excruciating pain. Finally, the family 3 siblings, 3 children and the patient, they all agreed to proceed with surgery. I discussed the situation at length with Dr. Clark in anticipation for reason probably this would be done some time tomorrow and would be bilateral amputation of both the knees. The daughter Maribel was coming from the cafeteria with some lunch and we discussed the situation once again and they are "all ready for this." They are already looking into a postsurgery situation for her to go to subacute rehab for post hospital care with a place where they have also dialysis and they are looking into [facility] at this point. The patient herself has not been eating well for the last few days, as expected and she has been deteriorating quite fast because of multiple systemic failure due to aging, diabetes, hypertension, complication of all of the above, leading to several peripheral vascular disease among other things and gangrene of both the lower extremities. She has been going to different places, different opinions, etc., and the conclusion is leaving all the same. I actually saw today the nurse in charge of pain management, Ms. York who gave me her insight after discussing the situation with the family and daughter Ricco from [place] over the telephone and Maribel at the bedside. According to Maribel and according to the patient, actually she seen pretty together today. She is still obviously in severe pain requiring Dilaudid when she gets 1 mg, she gets totally "spaced out." No dialysis today, hopefully she will have dialysis tomorrow, has to be planned with surgery timing. It is going to be some time done tomorrow. REVIEW OF SYSTEMS: There is no chest pain and no shortness of breath in bed and the patient denies any shortness of breath and the daughter at the bedside. No other problems. No nausea, vomiting. No diarrhea today. Rest of the review of system otherwise negative. PHYSICAL EXAMINATION: GENERAL: The patient appears relatively stable, very fragile as expected. VITAL SIGNS: She is afebrile with temperature 98, blood pressure about 130/70, O2 saturation 98%, pulse is regular 70 per minute. CARDIOVASCULAR: From the cardiopulmonary view point the jugular veins no distended even to muscle tying position. Heart sounds normal in intensity and regular with the systolic murmur which is chronic and I mentioned these several times during this hospitalization. LUNGS: No rhonchi. No CV lines. Some adventitious sounds as usual. Nothing except that one. ABDOMEN: Unremarkable. ENVIRONMENTAL ASSOCIATE: Unremarkable at this point in time. EXTREMITIES: No wonder grew out in the lower extremities with severe gangrene involving both feet which is the cause for severe pain, infections, etc. Hopefully, this will be taken care of tomorrow by Dr. Clark. I went to see her earlier today, the patient tech was doing an EKG basically showing sinus rhythm with temporary left bundle-branch block. The latest correlation profile during admission was unremarkable. Chest x-ray which was done during the previous submissions sometimes toward the end of February showed resolution or significant improvement in her right pleural effusion that comes and goes depending upon dialysis, which she eats at home, etc, etc. Clinically speaking nothing has changed and actually even improved from the cardiopulmonary viewpoint from the last admission because she has been here in hospital now for about 7 to 10 days or so. 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 The case has been extensive for the time and time again, discussed with the family, especially with the daughter here Maribel and son Bin and they are all aware of the situation. They have been in touch constantly now with the other sibling with Treye in [place] and they are all in agreement, especially the mother, to proceed with surgery. They are all aware of the severe situation and the high risk because of age, etc, although this surgery will be done very expeditiously but risks are high. The problem here is that not doing something would be even worse with excruciating pain that has been having and infections etc. They all agreed to proceed. Patient cardiologically stable. We will proceed with surgery as planned. I have discussed the situation previously with Dr. Clark. Denis Currie MD [facility] # [id number]
--- NOTE | 2017-04-18 23:01 | CP.PCM.PN ---
Subjective - Date & Time of Evaluation Date of Evaluation: 04/18/17 Time of Evaluation: 23:01 - Subjective Subjective: CHIEF COMPLAINTS TODAY : 04/17/17 LATE ENTRY AFEBRILE AWAKE pt comfortable . For amputation bilateral above-knee amputation ON SUNDAY Patient with gangrene and maggots. ROS. - OBSERVED HEENT : N. Resp : No cough, wheezing ,pleuritic CP ,or hemoptysis Cardio : No anginal CP, PND, orthopnea, palpitation GI : No abd.pain, n/v ,diarrhea or GI bleeding . BLOOD BANK CREDIT CLERK : No headache, vertigo, focal deficit. Musculoskel : No joint swelling , Derm : No rash Psych : Normal affect. Ext : BILATERAL LOWER EXTREMITIES AND DRESSINGS/TOES GANGRENOUS. PE. Pt. RESTING in no distress. V.S As noted in the chart Head ,ear nose,throat and eyes : Normal. Neck : Supple with normal carotids. Lungs: Clear air entry. Heart : S1 & S2 normal with S4. No murmur. Abd : Soft non tender with normal bowel sounds. Neuro : Moves all ext. with no localized deficit. Ext : BILATERAL LOWER EXTREMITIES IN DRESSING/BILATERAL TOES GANGRENOUS Derm : No rashes or decubitus ulcer. LABS/RADIOLOGY: wbc 17.2,-->18.9 h&h 10.9 CREATININE 2.2/BUN36 LFT N TSH 22.50-ELEVATED bLOOD CULTURES 04/10/17-VE TO DATE Objective - Vital Signs/Intake and Output Vital Signs (last 24 hours): Temp Pulse Resp BP Pulse Ox 98.1 F 74 20 131/71 98 04/18/17 16:04 04/18/17 16:04 04/18/17 16:04 04/18/17 16:04 04/18/17 16:04 Intake and Output: 04/18/17 04/19/17 18:59 06:59 Intake Total 350 290 Balance 350 290 - Medications Medications: Current Medications Calcium Acetate (Phoslo) 667 mg PO DAILY [facility] Last Admin: 04/18/17 09:46 Dose: 667 mg Epoetin Kailash (Procrit) 10,000 unit IV TTS [facility] Last Admin: 04/17/17 11:38 Dose: 10,000 unit Ergocalciferol (Drisdol 50,000 Intl Units Cap) 1 cap PO Q7D [facility] Last Admin: 04/12/17 21:13 Dose: 1 cap Hydromorphone HCl (Dilaudid) 1 mg IVP Q4H PRN PRN Reason: Pain, severe (8-10) Last Admin: 04/17/17 15:07 Dose: 1 mg Metronidazole 250 mg/ (Miscellaneous) 50 mls @ 100 mls/hr IVPB Q8 [facility] Last Admin: 04/18/17 21:47 Dose: 100 mls/hr Gentamicin Sulfate/Sodium Chloride (Gentamicin Iv 80 Mg Premix) 80 mg in 100 mls @ 100 mls/hr [place] [facility] Last Admin: 04/18/17 09:50 Dose: 100 mls/hr Vancomycin HCl 500 mg/ Sodium (Chloride) 100 mls @ 100 mls/hr [place]PB [facility] Last Admin: 04/18/17 11:10 Dose: 100 mls/hr Insulin Human Regular (Novolin R) 0 unit SC ACHS [facility] PRN Reason: Protocol Last Admin: 04/18/17 21:52 Dose: Not Given Lactulose (Enulose) 30 gm PO DAILY [facility] Last Admin: 04/18/17 09:46 Dose: 30 gm Levothyroxine Sodium (Synthroid) 50 mcg PO DAILY@0630 [facility] Last Admin: 04/18/17 06:00 Dose: 50 mcg Vitamin B Complex/Vit C/Folic Acid (Nephro-Nandini) 1 tab PO 0800 [facility] Last Admin: 04/18/17 07:57 Dose: 1 tab Zolpidem Tartrate (Ambien) 5 mg PO HS PRN PRN Reason: Insomnia - Labs Labs: 04/15/17 08:20 04/15/17 08:20 PT 12.5 SECONDS (9.7-12.2) H 04/10/17 17:59 INR 1.1 04/10/17 17:59 APTT 37 SECONDS (21-34) H 04/10/17 17:59 Assessment and Plan (1) Bilateral cellulitis of lower leg Status: Acute (2) Gangrene Assessment & Plan: PATIENT FOR BILATERAL ABOVE-KNEE AMPUTATION on as per Dr. Clark. PATIENT WITH BILATERAL ISCHEMIC GANGRENE WITH SUPERINFECTION WITH MAGGOTS. aS PER FAMILY CONTINUE iv VANCOMYCIN 500 MG POST EACH HEMODIALYSIS.MWF POST HD X 5 DOSES cONTINUE iv GENTAMICIN 80 MG POST EACH HEMODIALYSIS. DOSES TTS NOTED continue IV Flagyl 500 every 12 hourly for anaerobic coverage for now. Status: Acute (3) ESRD (end stage renal disease) on dialysis Status: Acute (4) Anemia Status: Chronic (5) DM2 (diabetes mellitus, type 2) Status: Chronic
--- NOTE | 2017-04-18 23:41 | CP.PCM.PN ---
Subjective - Date & Time of Evaluation Date of Evaluation: 04/18/17 Time of Evaluation: 14:00 - Subjective Subjective: SEEN ON RENAL F/U DAUGHTER ON THE BED SIDE FOR OR IN AM .. ALSO HD TOMORROW PT IS ALERT AND RESPONSIVE .. IN NAD Objective - Vital Signs/Intake and Output Vital Signs (last 24 hours): Temp Pulse Resp BP Pulse Ox 98.1 F 74 20 131/71 98 04/18/17 16:04 04/18/17 16:04 04/18/17 16:04 04/18/17 16:04 04/18/17 16:04 Intake and Output: 04/18/17 04/19/17 18:59 06:59 Intake Total 350 290 Balance 350 290 - Medications Medications: Current Medications Calcium Acetate (Phoslo) 667 mg PO DAILY [facility] Last Admin: 04/18/17 09:46 Dose: 667 mg Epoetin Kailash (Procrit) 10,000 unit IV TTS [facility] Last Admin: 04/17/17 11:38 Dose: 10,000 unit Ergocalciferol (Drisdol 50,000 Intl Units Cap) 1 cap PO Q7D [facility] Last Admin: 04/12/17 21:13 Dose: 1 cap Hydromorphone HCl (Dilaudid) 1 mg IVP Q4H PRN PRN Reason: Pain, severe (8-10) Last Admin: 04/17/17 15:07 Dose: 1 mg Metronidazole 250 mg/ (Miscellaneous) 50 mls @ 100 mls/hr IVPB Q8 [facility] Last Admin: 04/18/17 21:47 Dose: 100 mls/hr Gentamicin Sulfate/Sodium Chloride (Gentamicin Iv 80 Mg Premix) 80 mg in 100 mls @ 100 mls/hr IVPB MWF [facility] Last Admin: 04/18/17 09:50 Dose: 100 mls/hr Vancomycin HCl 500 mg/ Sodium (Chloride) 100 mls @ 100 mls/hr IVPB F [facility] Last Admin: 04/18/17 11:10 Dose: 100 mls/hr Insulin Human Regular (Novolin R) 0 unit SC ACHS [facility] PRN Reason: Protocol Last Admin: 04/18/17 21:52 Dose: Not Given Lactulose (Enulose) 30 gm PO DAILY [facility] Last Admin: 04/18/17 09:46 Dose: 30 gm Levothyroxine Sodium (Synthroid) 50 mcg PO DAILY@0630 [facility] Last Admin: 04/18/17 06:00 Dose: 50 mcg Vitamin B Complex/Vit C/Folic Acid (Nephro-Nandini) 1 tab PO 0800 [facility] Last Admin: 04/18/17 07:57 Dose: 1 tab Zolpidem Tartrate (Ambien) 5 mg PO HS PRN PRN Reason: Insomnia - Labs Labs: 04/15/17 08:20 04/15/17 08:20 PT 12.5 SECONDS (9.7-12.2) H 04/10/17 17:59 INR 1.1 04/10/17 17:59 APTT 37 SECONDS (21-34) H 04/10/17 17:59 Assessment and Plan - Assessment and Plan (Free Text) Assessment: ESRD ON HD T T S .. WILL GIVE HD AWAY FROM THE SURGERY TIME ANEMIA OF CKD .. RECIEVED 2 U PRBC .. ON EPO FOR SURGERY IN AM FOR DAVID AKA C/O CURRENT CARE
--- NOTE | 2017-04-19 04:26 | CP.PCM.PN ---
Subjective - Date & Time of Evaluation Date of Evaluation: 04/18/17 Time of Evaluation: 02:30 - Subjective Subjective: Patient was seen and examined at bedside. Patient denies nausea, vomiting, fever , chills, chest pain and SOB. Patient has no new complaints. ready for surgery tomarrow Objective - Vital Signs/Intake and Output Vital Signs (last 24 hours): Temp Pulse Resp BP Pulse Ox 98.9 F 87 20 134/62 98 04/18/17 23:35 04/18/17 23:35 04/18/17 23:35 04/18/17 23:35 04/18/17 23:35 Intake and Output: 04/18/17 04/19/17 18:59 06:59 Intake Total 350 290 Balance 350 290 - Medications Medications: Current Medications Calcium Acetate (Phoslo) 667 mg PO DAILY [facility] Last Admin: 04/18/17 09:46 Dose: 667 mg Epoetin Kailash (Procrit) 10,000 unit IV TTS [facility] Last Admin: 04/17/17 11:38 Dose: 10,000 unit Ergocalciferol (Drisdol 50,000 Intl Units Cap) 1 cap PO Q7D [facility] Last Admin: 04/12/17 21:13 Dose: 1 cap Hydromorphone HCl (Dilaudid) 1 mg IVP Q4H PRN PRN Reason: Pain, severe (8-10) Last Admin: 04/17/17 15:07 Dose: 1 mg Metronidazole 250 mg/ (Miscellaneous) 50 mls @ 100 mls/hr IVPB Q8 [facility] Last Admin: 04/18/17 21:47 Dose: 100 mls/hr Gentamicin Sulfate/Sodium Chloride (Gentamicin Iv 80 Mg Premix) 80 mg in 100 mls @ 100 mls/hr IVPB MWF [facility] Last Admin: 04/18/17 09:50 Dose: 100 mls/hr Vancomycin HCl 500 mg/ Sodium (Chloride) 100 mls @ 100 mls/hr IVPB F [facility] Last Admin: 04/18/17 11:10 Dose: 100 mls/hr Insulin Human Regular (Novolin R) 0 unit SC ACHS [facility] PRN Reason: Protocol Last Admin: 04/18/17 21:52 Dose: Not Given Lactulose (Enulose) 30 gm PO DAILY [facility] Last Admin: 04/18/17 09:46 Dose: 30 gm Levothyroxine Sodium (Synthroid) 50 mcg PO DAILY@0630 [facility] Last Admin: 04/18/17 06:00 Dose: 50 mcg Vitamin B Complex/Vit C/Folic Acid (Nephro-Nandini) 1 tab PO 0800 [facility] Last Admin: 04/18/17 07:57 Dose: 1 tab Zolpidem Tartrate (Ambien) 5 mg PO HS PRN PRN Reason: Insomnia - Labs Labs: 04/15/17 08:20 04/15/17 08:20 PT 12.5 SECONDS (9.7-12.2) H 04/10/17 17:59 INR 1.1 04/10/17 17:59 APTT 37 SECONDS (21-34) H 04/10/17 17:59 - Constitutional Appears: Well - Head Exam Head Exam: ATRAUMATIC, NORMAL INSPECTION, NORMOCEPHALIC - Eye Exam Eye Exam: EOMI, Normal appearance, PERRL Pupil Exam: NORMAL ACCOMODATION, PERRL - ENT Exam ENT Exam: Mucous Membranes Moist, Normal Exam - Neck Exam Neck Exam: Full ROM, Normal Inspection. absent: Lymphadenopathy - Respiratory Exam Respiratory Exam: Clear to Ausculation Bilateral, NORMAL BREATHING PATTERN - Cardiovascular Exam Cardiovascular Exam: REGULAR RHYTHM, +S1, +S2. absent: Murmur - GI/Abdominal Exam GI & Abdominal Exam: Soft, Normal Bowel Sounds. absent: Tenderness - Rectal Exam Rectal Exam: NORMAL INSPECTION - Exam Exam: Circumcision, NORMAL INSPECTION External exam: NORMAL EXTERNAL EXAM Speculum exam: NORMAL SPECULUM EXAM Bimanual exam: NORMAL BIMANUAL EXAM - Extremities Exam Extremities Exam: Full ROM, Normal Capillary Refill, Normal Inspection. absent : Joint Swelling, Pedal Edema - Back Exam Back Exam: NORMAL INSPECTION - Neurological Exam Neurological Exam: Alert, Awake, CN II-XII Intact, Normal Gait, Oriented x3 - Psychiatric Exam Psychiatric exam: Normal Affect, Normal Mood - Skin Skin Exam: Dry, Intact, Normal Color, Warm Assessment and Plan - Assessment and Plan (Free Text) Assessment: 86F b/l LE leg wound, gangrenous toes . dm htn , severe pvd Plan: - Plan for bilateral AKA tomorrow -Continue with antibiotics -Continue with dressing changes by podiatry -Optimize patient for surgery d/d with son , want surgery
[2017-04-19 06:02] LABS: HEMATOCRIT 31.9 % (34.0-47.0); MEAN CELL VOLUME 94.1 fL (81.0-99.0); MEAN CORPUSCULAR HEMOGLOBIN 30.2 pg (27.0-31.0); MEAN CORPUSCULAR HGB CONC 32.1 g/dL (33.0-37.0); MEAN PLATELET VOLUME 8.5 fL (7.2-11.7); RED CELL DISTRIBUTION WIDTH 18.3 % (11.5-14.5); WHITE BLOOD COUNT 18.3 K/uL (4.8-10.8)
[2017-04-19] MEDS: metroNIDAZOLE IV 500 mg/100 ml 250 MG in Premixed IV 1 EA IVPB SCH ×3 (06:10→21:03)
[2017-04-19] MEDS: Levothyroxine 50 MCG TAB PO SCH (06:11)
[2017-04-19 06:13] LABS: INR 1.5
[2017-04-19 06:16] LABS: POTASSIUM 4.3 mmol/L (3.6-5.2)
[2017-04-19 06:18] LABS: ALB/GLOB RATIO 0.6 (1.0-2.1); BILIRUBIN,TOTAL 0.5 mg/dL (0.2-1.3); TOTAL PROTEIN 5.9 g/dL (6.3-8.3)
[2017-04-19 06:19] LABS: CALCIUM 7.8 mg/dl (8.6-10.4)
[2017-04-19] MEDS ORDERED: Sodium Chloride 0.9% 500 ML IV ONE (07:45)
[2017-04-19] MEDS ORDERED: Etomidate 20 mg/10ml Inj IV ONE (07:52)
[2017-04-19] MEDS ORDERED: Phenylephrine 10 mg/ml Inj ONE (07:54)
--- NOTE | 2017-04-19 08:26 | RAD ---
HISTORY: pre op CXR early AM case COMPARISON: 02/23/2017 FINDINGS: LUNGS: Interval increased density inferred consolidation/atelectasis both bases left greater than right. Right medial lower lobe interval increased air bronchograms/ consolidation border the dual-lumen right dialysis catheter. PLEURA: Interval increased bilateral pleural effusions pleural effusion identified, no pneumothorax apparent. CARDIOVASCULAR: Cardiomegaly. Atherosclerotic vascular calcifications throughout the thoracolumbar aorta including splenic artery heavy row sclerotic vascular calcification. No gross aneurysm inferred OSSEOUS STRUCTURES: Thoracic and cervical spondylosis generalized osteopenia bilateral shoulder arthrosis left greater than right VISUALIZED UPPER ABDOMEN: Normal. OTHER FINDINGS: None. IMPRESSION: Interval increase bilateral pleural effusions. Interval increase bibasilar consolidation - consistent with consolidative infiltrates and/or atelectasis. Cardiomegaly similar. Heavy calcific atherosclerotic vascular disease. Right dialysis catheter lumen tip in right atrium
[2017-04-19] MEDS: (Novolin R) Insulin Human Regular 100 units/ml vial SC SCH ×4 (08:27→21:54)
[2017-04-19] MEDS: Multivitamin Vitamin B Complex (Nephro-Vite) Tab PO SCH (08:27)
--- NOTE | 2017-04-19 09:49 | PCM.SURG1 ---
Surgeon's Initial Post Op Note - Surgeon's Notes Surgeon: Dr. Amber MATA Foxing Cutting Machine Operator: Dr. Bojorquez PGY2, PGY1, Boris OMS3 Pre-Operative Diagnosis: Bilateral Gangrene of the LE Operative Findings: see op note Post-Operative Diagnosis: same Operation Performed: Bilateral Above the Knee Amputation Specimen/Specimens Removed: Right and Left Lower Extremities Estimated Blood Loss: EBL {In ML}: 150 Drains Used: No Drains Date of Surgery/Procedure: 04/19/17 Time of Surgery/Procedure: 08:30
[2017-04-19 14:02] LABS: BASO # 0.1 K/uL (0.0-0.2); BASO % 0.4 % (0.0-2.0); EOS % 0.1 % (0.0-4.0); HEMATOCRIT 27.6 % (34.0-47.0); LYMPH # 0.7 K/uL (1.0-4.3); MEAN CELL VOLUME 95.1 fL (81.0-99.0); MEAN CORPUSCULAR HEMOGLOBIN 29.6 pg (27.0-31.0); MEAN CORPUSCULAR HGB CONC 31.1 g/dL (33.0-37.0); MEAN PLATELET VOLUME 8.4 fL (7.2-11.7); MONO # 0.8 K/uL (0.0-0.8); MONO % 5.9 % (0.0-10.0); NRBC % 0.1 % (0.0-2.0); PLATELET COUNT 327 K/uL (130-400); RED CELL DISTRIBUTION WIDTH 17.7 % (11.5-14.5); WHITE BLOOD COUNT 13.5 K/uL (4.8-10.8)
[2017-04-19 14:22] LABS: NEUTROPHIL 88 % (50-75); TOTAL CELLS COUNTED 100
[2017-04-19] MEDS: Oxycodone/Acetaminophen 5/325 mg Tab PO PRN ×2 (14:49→22:38)
--- NOTE | 2017-04-19 17:59 | CP.PCM.PN ---
Subjective - Date & Time of Evaluation Date of Evaluation: 04/19/17 Time of Evaluation: 14:00 - Subjective Subjective: SEEN ON RENAL F/U S/P DAVID AKA SEEN POST OP .. MOANING AND GROANING ..C/O PAIN BP ON THE LOW SIDE I BUMPED HER HD TO TOMORROW LABS R OK Objective - Vital Signs/Intake and Output Vital Signs (last 24 hours): Temp Pulse Resp BP Pulse Ox 97.4 F L 82 20 105/58 L 95 04/19/17 16:08 04/19/17 16:08 04/19/17 16:08 04/19/17 16:08 04/19/17 16:08 Intake and Output: 04/19/17 04/19/17 06:59 18:59 Intake Total 290 355 Balance 290 355 - Medications Medications: Current Medications Calcium Acetate (Phoslo) 667 mg PO DAILY [facility] Last Admin: 04/19/17 10:30 Dose: Not Given Epoetin Kailash (Procrit) 10,000 unit IV TTS [facility] Last Admin: 04/17/17 11:38 Dose: 10,000 unit Ergocalciferol (Drisdol 50,000 Intl Units Cap) 1 cap PO Q7D [facility] Last Admin: 04/12/17 21:13 Dose: 1 cap Famotidine (Pepcid) 20 mg PO DAILY [facility] Last Admin: 04/19/17 10:30 Dose: Not Given Heparin Sodium (Porcine) (Heparin) 5,000 units SC Q8 [facility] Last Admin: 04/19/17 17:11 Dose: Not Given Hydromorphone HCl (Dilaudid) 1 mg IVP Q4H PRN PRN Reason: Pain, severe (8-10) Last Admin: 04/17/17 15:07 Dose: 1 mg Metronidazole 250 mg/ (Miscellaneous) 50 mls @ 100 mls/hr IVPB Q8 [facility] Last Admin: 04/19/17 16:00 Dose: 100 mls/hr Gentamicin Sulfate/Sodium Chloride (Gentamicin Iv 80 Mg Premix) 80 mg in 100 mls @ 100 mls/hr IVPB MWF [facility] Last Admin: 04/18/17 09:50 Dose: 100 mls/hr Vancomycin HCl 500 mg/ Sodium (Chloride) 100 mls @ 100 mls/hr IVPB F [facility] Last Admin: 04/18/17 11:10 Dose: 100 mls/hr Insulin Human Regular (Novolin R) 0 unit SC ACHS [facility] PRN Reason: Protocol Last Admin: 04/19/17 16:58 Dose: 1 unit Lactulose (Enulose) 30 gm PO DAILY [facility] Last Admin: 04/19/17 10:30 Dose: Not Given Levothyroxine Sodium (Synthroid) 50 mcg PO DAILY@0630 [facility] Last Admin: 04/19/17 06:11 Dose: Not Given Morphine Sulfate (Morphine) 1 mg IVP Q15M PRN PRN Reason: Pain, moderate (4-7) Oxycodone/Acetaminophen (Percocet 5/325 Mg Tab) 1 tab PO Q6H PRN PRN Reason: Pain, moderate (4-7) Stop: 04/22/17 09:55 Last Admin: 04/19/17 14:49 Dose: 1 tab Vitamin B Complex/Vit C/Folic Acid (Nephro-Nandini) 1 tab PO 0800 [facility] Last Admin: 04/19/17 08:27 Dose: Not Given Zolpidem Tartrate (Ambien) 5 mg PO HS PRN PRN Reason: Insomnia - Labs Labs: 04/19/17 13:53 04/19/17 06:00 PT 16.5 SECONDS (9.7-12.2) H 04/19/17 06:00 INR 1.5 04/19/17 06:00 APTT 34 SECONDS (21-34) 04/19/17 13:53 Assessment and Plan - Assessment and Plan (Free Text) Assessment: ESRD ON HD T T S .. FOR HD IN AM INSTEAD OF TODAY PAY ATTENTION FOR ANEMIA .. EPO + VENOFER C/O CURRENT CARE
--- NOTE | 2017-04-19 19:07 | OP ---
PROCEDURE DATE: 04/19/2017 PREOPERATIVE DIAGNOSIS: Gangrene of both feet. POSTOPERATIVE DIAGNOSIS: Gangrene of both feet. PROCEDURE: Bilateral above-knee amputation. SURGEON: Dr. Clark. EXCHANGE CLERK: Dr. Bojorquez and Dr. Arias INDICATIONS: The patient is an 86-year-old woman on dialysis who has had previous attempts of revascularization and there were no possible target vessels or options regarding revascularization. OPERATIVE FINDINGS: There was adequate vascularity in both legs. The right leg had a patent superficial femoral artery on the left side which was occluded. DESCRIPTION OF PROCEDURE: The patient was given general anesthesia, intravenous antibiotics. The legs were elevated. Standard above-knee amputation was carried on both sides. The blood loss of the procedure was approximately 150 to 200 mL. Operation carried out is bilateral above-knee amputation. Standard skin closure was carried out. Non-compressive dressings were applied. Rao Clark Jr., MD
[2017-04-19] MEDS: Ergocalciferol 50,000 Intl Units Cap PO SCH (21:03)
--- NOTE | 2017-04-19 22:22 | CP.PCM.PN ---
Subjective - Date & Time of Evaluation Date of Evaluation: 04/19/17 Time of Evaluation: 22:22 - Subjective Subjective: AFEBRILE,VSS, AWAKE. C/O PHANTOM PAIN BOTH LOWER EXTREMITIES. S/P BILATERAL ABOVE-KNEE AMPUTATIONS. DAUGHTER BY THE SIDE. Objective - Vital Signs/Intake and Output Vital Signs (last 24 hours): Temp Pulse Resp BP Pulse Ox 97.4 F L 82 20 105/58 L 95 04/19/17 16:08 04/19/17 16:08 04/19/17 16:08 04/19/17 16:08 04/19/17 16:08 Intake and Output: 04/19/17 04/20/17 18:59 06:59 Intake Total 355 100 Balance 355 100 - Medications Medications: Current Medications Calcium Acetate (Phoslo) 667 mg PO DAILY [facility] Last Admin: 04/19/17 10:30 Dose: Not Given Epoetin Kailash (Procrit) 10,000 unit IV TTS [facility] Last Admin: 04/17/17 11:38 Dose: 10,000 unit Ergocalciferol (Drisdol 50,000 Intl Units Cap) 1 cap PO Q7D [facility] Last Admin: 04/19/17 21:03 Dose: 1 cap Famotidine (Pepcid) 20 mg PO DAILY [facility] Last Admin: 04/19/17 10:30 Dose: Not Given Heparin Sodium (Porcine) (Heparin) 5,000 units SC Q8 [facility] Last Admin: 04/19/17 21:11 Dose: 5,000 units Hydromorphone HCl (Dilaudid) 1 mg IVP Q4H PRN PRN Reason: Pain, severe (8-10) Last Admin: 04/17/17 15:07 Dose: 1 mg Metronidazole 250 mg/ (Miscellaneous) 50 mls @ 100 mls/hr IVPB Q8 [facility] Last Admin: 04/19/17 21:03 Dose: 100 mls/hr Gentamicin Sulfate/Sodium Chloride (Gentamicin Iv 80 Mg Premix) 80 mg in 100 mls @ 100 mls/hr IVPB MWF [facility] Last Admin: 04/18/17 09:50 Dose: 100 mls/hr Vancomycin HCl 500 mg/ Sodium (Chloride) 100 mls @ 100 mls/hr IVPB [facility] Last Admin: 04/18/17 11:10 Dose: 100 mls/hr Insulin Human Regular (Novolin R) 0 unit SC ACHS [facility] PRN Reason: Protocol Last Admin: 04/19/17 21:54 Dose: Not Given Lactulose (Enulose) 30 gm PO DAILY [facility] Last Admin: 04/19/17 10:30 Dose: Not Given Levothyroxine Sodium (Synthroid) 50 mcg PO DAILY@0630 [facility] Last Admin: 04/19/17 06:11 Dose: Not Given Morphine Sulfate (Morphine) 1 mg IVP Q15M PRN PRN Reason: Pain, moderate (4-7) Oxycodone/Acetaminophen (Percocet 5/325 Mg Tab) 1 tab PO Q6H PRN PRN Reason: Pain, moderate (4-7) Stop: 04/22/17 09:55 Last Admin: 04/19/17 14:49 Dose: 1 tab Vitamin B Complex/Vit C/Folic Acid (Nephro-Nandini) 1 tab PO 0800 [facility] Last Admin: 04/19/17 08:27 Dose: Not Given Zolpidem Tartrate (Ambien) 5 mg PO HS PRN PRN Reason: Insomnia - Labs Labs: 04/19/17 13:53 04/19/17 06:00 PT 16.5 SECONDS (9.7-12.2) H 04/19/17 06:00 INR 1.5 04/19/17 06:00 APTT 34 SECONDS (21-34) 04/19/17 13:53 - Constitutional Appears: No Acute Distress, Cachectic - Eye Exam Eye Exam: EOMI, PERRL - ENT Exam ENT Exam: Normal Oropharynx - Neck Exam Neck Exam: Normal Inspection - Respiratory Exam Respiratory Exam: Clear to Ausculation Bilateral - Cardiovascular Exam Cardiovascular Exam: REGULAR RHYTHM, +S1, +S2 - GI/Abdominal Exam GI & Abdominal Exam: Soft, Normal Bowel Sounds - Extremities Exam Additional comments: B/L AKA +VE DRESSINGS - Neurological Exam Neurological Exam: Awake - Skin Skin Exam: Warm Assessment and Plan (1) Bilateral cellulitis of lower leg Status: Acute (2) Gangrene Assessment & Plan: S/P B/L AKA 04/19/17. CONTINUE iv ANTIBIOTICS X 36HRS Status: Acute (3) ESRD (end stage renal disease) on dialysis Status: Acute (4) Anemia Status: Chronic (5) DM2 (diabetes mellitus, type 2) Status: Chronic
[2017-04-20] MEDS: Levothyroxine 50 MCG TAB PO SCH (06:00)
[2017-04-20] MEDS: metroNIDAZOLE IV 500 mg/100 ml 250 MG in Premixed IV 1 EA IVPB SCH ×3 (06:00→21:45)
[2017-04-20] MEDS: (Novolin R) Insulin Human Regular 100 units/ml vial SC SCH ×4 (07:45→21:41)
[2017-04-20] MEDS: Multivitamin Vitamin B Complex (Nephro-Vite) Tab PO SCH (09:05)
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
[2017-04-20] MEDS: Epoetin Alfa 10,000 unit/ml Dialysis IV SCH (11:10)
--- NOTE | 2017-04-20 12:14 | CP.PCM.PN ---
Subjective - Date & Time of Evaluation Date of Evaluation: 04/20/17 Time of Evaluation: 11:57 - Subjective Subjective: patient complains of right arm pain. On HD at present Objective - Vital Signs/Intake and Output Vital Signs (last 24 hours): Temp Pulse Resp BP Pulse Ox 97.8 F 85 18 84/49 L 99 04/20/17 08:00 04/20/17 11:30 04/20/17 08:00 04/20/17 11:30 04/20/17 08:00 Intake and Output: 04/20/17 04/20/17 06:59 18:59 Intake Total 200 Balance 200 - Medications Medications: Current Medications Calcium Acetate (Phoslo) 667 mg PO DAILY [facility] Last Admin: 04/20/17 10:20 Dose: Not Given Epoetin Kailash (Procrit) 10,000 unit IV TTS [facility] Last Admin: 04/20/17 11:10 Dose: 10,000 unit Ergocalciferol (Drisdol 50,000 Intl Units Cap) 1 cap PO Q7D [facility] Last Admin: 04/19/17 21:03 Dose: 1 cap Famotidine (Pepcid) 20 mg PO DAILY [facility] Last Admin: 04/20/17 10:20 Dose: Not Given Heparin Sodium (Porcine) (Heparin) 5,000 units SC Q8 [facility] Last Admin: 04/20/17 06:00 Dose: 5,000 units Hydromorphone HCl (Dilaudid) 1 mg IVP Q4H PRN PRN Reason: Pain, severe (8-10) Last Admin: 04/20/17 09:05 Dose: 1 mg Metronidazole 250 mg/ (Miscellaneous) 50 mls @ 100 mls/hr IVPB Q8 [facility] Last Admin: 04/20/17 06:00 Dose: 100 mls/hr Gentamicin Sulfate/Sodium Chloride (Gentamicin Iv 80 Mg Premix) 80 mg in 100 mls @ 100 mls/hr IVPB MWF [facility] Last Admin: 04/18/17 09:50 Dose: 100 mls/hr Vancomycin HCl 500 mg/ Sodium (Chloride) 100 mls @ 100 mls/hr IVPB MWF [facility] Last Admin: 04/18/17 11:10 Dose: 100 mls/hr Insulin Human Regular (Novolin R) 0 unit SC ACHS [facility] PRN Reason: Protocol Last Admin: 04/20/17 07:45 Dose: Not Given Lactulose (Enulose) 30 gm PO DAILY [facility] Last Admin: 04/20/17 10:19 Dose: Not Given Levothyroxine Sodium (Synthroid) 50 mcg PO DAILY@0630 [facility] Last Admin: 04/20/17 06:00 Dose: 50 mcg Morphine Sulfate (Morphine) 1 mg IVP Q15M PRN PRN Reason: Pain, moderate (4-7) Last Admin: 04/20/17 00:45 Dose: 1 mg Oxycodone/Acetaminophen (Percocet 5/325 Mg Tab) 1 tab PO Q6H PRN PRN Reason: Pain, moderate (4-7) Stop: 04/22/17 09:55 Last Admin: 04/19/17 22:38 Dose: 1 tab Vitamin B Complex/Vit C/Folic Acid (Nephro-Nandini) 1 tab PO 0800 [facility] Last Admin: 04/20/17 09:05 Dose: 1 tab Zolpidem Tartrate (Ambien) 5 mg PO HS PRN PRN Reason: Insomnia - Labs Labs: 04/19/17 13:53 04/19/17 06:00 PT 16.5 SECONDS (9.7-12.2) H 04/19/17 06:00 INR 1.5 04/19/17 06:00 APTT 34 SECONDS (21-34) 04/19/17 13:53 - Constitutional Appears: No Acute Distress, Chronically Ill - Head Exam Head Exam: ATRAUMATIC, NORMAL INSPECTION, NORMOCEPHALIC - Eye Exam Eye Exam: EOMI, Normal appearance Pupil Exam: NORMAL ACCOMODATION, PERRL - ENT Exam ENT Exam: Mucous Membranes Moist, Normal Exam - Neck Exam Neck Exam: Normal Inspection - Respiratory Exam Respiratory Exam: Decreased Breath Sounds - Cardiovascular Exam Additional comments: Hypotension 84/49 - Extremities Exam Additional comments: S/P B/L AKA - Neurological Exam Neurological Exam: Alert, Awake Neuro motor strength exam: Left Upper Extremity: 2/1, Right Upper Extremity: 2/1 - Psychiatric Exam Psychiatric exam: Anxious - Skin Skin Exam: Normal Color, Warm Assessment and Plan - Assessment and Plan (Free Text) Assessment: Patient is day # 1 post op, B/L AKA. Patient examined in HD. BP low 84/49. Given that patient lost significant part of her body the low BP is to be expected. Head lowered in bed. patient complains of right arm pain. Right arm positioned on pillow for comfort. Bot AKA with dressing on. patient denies phantom pain. WBC trending down to 13.5 from 18.6. hb 8.6, was 9.7. I received phone call from patient's daughter from [place] whose concern was patient' s discharge date and destination. I discussed with the other daugter at bed side who stated family preferences for discharge either to [facility]. This was communicated to Cristina, the director of casework services. I also reassured family that discharge date is not known yet and all depends on patient 's condition as she just had a big sx. The family was happy with the discussion. Impression * Patient is day # 1 post B/L AKA and is recovering well * No phantom pain reported * Patient is hypotensive Suggestion * Would consider lowering the dose of Dilaudid , as source of pain is removed by Sx and patient denies a new phantom pain. * assistant spa manager and SS please assist family in choosing the [facility] as they have different preferences ' [facility] vs [facility] Thank you!
[2017-04-20] MEDS: Gentamicin 80 mg in 0.9% NS 80 MG/100 ML BAG IVPB SCH (12:43)
--- NOTE | 2017-04-20 16:34 | CP.PCM.PN ---
Subjective - Date & Time of Evaluation Date of Evaluation: 04/20/17 Time of Evaluation: 07:45 - Subjective Subjective: Pt S&E this AM. NAEO. B/l extremity dressings c/d/i. Objective - Vital Signs/Intake and Output Vital Signs (last 24 hours): Temp Pulse Resp BP Pulse Ox 97.2 F L 86 19 104/62 96 04/20/17 15:56 04/20/17 15:56 04/20/17 15:56 04/20/17 15:56 04/20/17 15:56 Intake and Output: 04/20/17 04/20/17 06:59 18:59 Intake Total 200 Balance 200 - Medications Medications: Current Medications Calcium Acetate (Phoslo) 667 mg PO DAILY [facility] Last Admin: 04/20/17 10:20 Dose: Not Given Epoetin Kailash (Procrit) 10,000 unit IV TTS [facility] Last Admin: 04/20/17 11:10 Dose: 10,000 unit Ergocalciferol (Drisdol 50,000 Intl Units Cap) 1 cap PO Q7D [facility] Last Admin: 04/19/17 21:03 Dose: 1 cap Famotidine (Pepcid) 20 mg PO DAILY [facility] Last Admin: 04/20/17 10:20 Dose: Not Given Heparin Sodium (Porcine) (Heparin) 5,000 units SC Q8 [facility] Last Admin: 04/20/17 14:32 Dose: 5,000 units Hydromorphone HCl (Dilaudid) 1 mg IVP Q4H PRN PRN Reason: Pain, severe (8-10) Last Admin: 04/20/17 09:05 Dose: 1 mg Metronidazole 250 mg/ (Miscellaneous) 50 mls @ 100 mls/hr IVPB Q8 [facility] Last Admin: 04/20/17 13:36 Dose: 100 mls/hr Gentamicin Sulfate/Sodium Chloride (Gentamicin Iv 80 Mg Premix) 80 mg in 100 mls @ 100 mls/hr IVPB MWF [facility] Last Admin: 04/20/17 12:43 Dose: 100 mls/hr Vancomycin HCl 500 mg/ Sodium (Chloride) 100 mls @ 100 mls/hr IVPB MWF [facility] Last Admin: 04/20/17 14:32 Dose: 100 mls/hr Insulin Human Regular (Novolin R) 0 unit SC ACHS [facility] PRN Reason: Protocol Last Admin: 04/20/17 12:09 Dose: Not Given Lactulose (Enulose) 30 gm PO DAILY [facility] Last Admin: 04/20/17 10:19 Dose: Not Given Levothyroxine Sodium (Synthroid) 50 mcg PO DAILY@0630 [facility] Last Admin: 04/20/17 06:00 Dose: 50 mcg Morphine Sulfate (Morphine) 1 mg IVP Q15M PRN PRN Reason: Pain, moderate (4-7) Last Admin: 04/20/17 00:45 Dose: 1 mg Oxycodone/Acetaminophen (Percocet 5/325 Mg Tab) 1 tab PO Q6H PRN PRN Reason: Pain, moderate (4-7) Stop: 04/22/17 09:55 Last Admin: 04/19/17 22:38 Dose: 1 tab Vitamin B Complex/Vit C/Folic Acid (Nephro-Nandini) 1 tab PO 0800 [facility] Last Admin: 04/20/17 09:05 Dose: 1 tab Zolpidem Tartrate (Ambien) 5 mg PO HS PRN PRN Reason: Insomnia - Labs Labs: 04/19/17 13:53 04/19/17 06:00 PT 16.5 SECONDS (9.7-12.2) H 04/19/17 06:00 INR 1.5 04/19/17 06:00 APTT 34 SECONDS (21-34) 04/19/17 13:53 - Constitutional Appears: No Acute Distress - Head Exam Head Exam: NORMOCEPHALIC - Eye Exam Eye Exam: Normal appearance - ENT Exam ENT Exam: Mucous Membranes Moist - Respiratory Exam Respiratory Exam: NORMAL BREATHING PATTERN - Cardiovascular Exam Cardiovascular Exam: +S1, +S2 - GI/Abdominal Exam GI & Abdominal Exam: Soft - Neurological Exam Neurological Exam: Alert, Awake, Oriented x3 - Psychiatric Exam Psychiatric exam: Normal Mood - Skin Skin Exam: Dry, Warm Assessment and Plan - Assessment and Plan (Free Text) Assessment: 86F s/p B/l AKA POD2 -Monitor Hg -F/u AM labs -Analgesics -Dressings c/d/i -Physical therapy -Further recs per Dr. Amber Bojorquez PGY-2
--- NOTE | 2017-04-20 21:08 | CP.PCM.PN ---
Subjective - Date & Time of Evaluation Date of Evaluation: 04/20/17 Time of Evaluation: 15:00 - Subjective Subjective: SEEN ON RENAL F/U S/P DAVID AKA D/W DAUGHTER Objective - Vital Signs/Intake and Output Vital Signs (last 24 hours): Temp Pulse Resp BP Pulse Ox 97.2 F L 86 19 104/62 96 04/20/17 15:56 04/20/17 15:56 04/20/17 15:56 04/20/17 15:56 04/20/17 15:56 - Medications Medications: Current Medications Calcium Acetate (Phoslo) 667 mg PO DAILY [facility] Last Admin: 04/20/17 10:20 Dose: Not Given Epoetin Kailash (Procrit) 10,000 unit IV TTS [facility] Last Admin: 04/20/17 11:10 Dose: 10,000 unit Ergocalciferol (Drisdol 50,000 Intl Units Cap) 1 cap PO Q7D [facility] Last Admin: 04/19/17 21:03 Dose: 1 cap Famotidine (Pepcid) 20 mg PO DAILY [facility] Last Admin: 04/20/17 10:20 Dose: Not Given Heparin Sodium (Porcine) (Heparin) 5,000 units SC Q8 [facility] Last Admin: 04/20/17 14:32 Dose: 5,000 units Hydromorphone HCl (Dilaudid) 0.5 mg IVP Q4H PRN PRN Reason: Pain, severe (8-10) Metronidazole 250 mg/ (Miscellaneous) 50 mls @ 100 mls/hr IVPB Q8 [facility] Last Admin: 04/20/17 13:36 Dose: 100 mls/hr Gentamicin Sulfate/Sodium Chloride (Gentamicin Iv 80 Mg Premix) 80 mg in 100 mls @ 100 mls/hr IVPB MWF [facility] Last Admin: 04/20/17 12:43 Dose: 100 mls/hr Vancomycin HCl 500 mg/ Sodium (Chloride) 100 mls @ 100 mls/hr IVPB MWF [facility] Last Admin: 04/20/17 14:32 Dose: 100 mls/hr Insulin Human Regular (Novolin R) 0 unit SC ACHS [facility] PRN Reason: Protocol Last Admin: 04/20/17 17:07 Dose: Not Given Levothyroxine Sodium (Synthroid) 50 mcg PO DAILY@0630 [facility] Last Admin: 04/20/17 06:00 Dose: 50 mcg Morphine Sulfate (Morphine) 1 mg IVP Q15M PRN PRN Reason: Pain, moderate (4-7) Last Admin: 04/20/17 00:45 Dose: 1 mg Oxycodone/Acetaminophen (Percocet 5/325 Mg Tab) 1 tab PO Q6H PRN PRN Reason: Pain, moderate (4-7) Stop: 04/22/17 09:55 Last Admin: 04/19/17 22:38 Dose: 1 tab Vitamin B Complex/Vit C/Folic Acid (Nephro-Nandini) 1 tab PO 0800 [facility] Last Admin: 04/20/17 09:05 Dose: 1 tab Zolpidem Tartrate (Ambien) 5 mg PO HS PRN PRN Reason: Insomnia - Labs Labs: 04/19/17 13:53 04/19/17 06:00 PT 16.5 SECONDS (9.7-12.2) H 04/19/17 06:00 INR 1.5 04/19/17 06:00 APTT 34 SECONDS (21-34) 04/19/17 13:53 Assessment and Plan - Assessment and Plan (Free Text) Assessment: ESRD ON HD T T S .. HAD HD YESTERDAY FOR HD IN AM C/O CURRENT CARE
[2017-04-20] MEDS: HYDROmorphone 0.5 mg/0.5 ml ISec IVP PRN (21:52)
--- NOTE | 2017-04-20 23:03 | CP.PCM.PN ---
Subjective - Date & Time of Evaluation Date of Evaluation: 04/20/17 Time of Evaluation: 23:03 - Subjective Subjective: afebrile. Bilateral above-knee amputation .Bilateral dressings intact/dry and clean. Phantom pain. Objective - Vital Signs/Intake and Output Vital Signs (last 24 hours): Temp Pulse Resp BP Pulse Ox 97.2 F L 86 19 104/62 96 04/20/17 15:56 04/20/17 15:56 04/20/17 15:56 04/20/17 15:56 04/20/17 15:56 - Medications Medications: Current Medications Calcium Acetate (Phoslo) 667 mg PO DAILY [facility] Last Admin: 04/20/17 10:20 Dose: Not Given Epoetin Kailash (Procrit) 10,000 unit IV TTS [facility] Last Admin: 04/20/17 11:10 Dose: 10,000 unit Ergocalciferol (Drisdol 50,000 Intl Units Cap) 1 cap PO Q7D [facility] Last Admin: 04/19/17 21:03 Dose: 1 cap Famotidine (Pepcid) 20 mg PO DAILY [facility] Last Admin: 04/20/17 10:20 Dose: Not Given Heparin Sodium (Porcine) (Heparin) 5,000 units SC Q8 [facility] Last Admin: 04/20/17 21:45 Dose: 5,000 units Hydromorphone HCl (Dilaudid) 0.5 mg IVP Q4H PRN PRN Reason: Pain, severe (8-10) Last Admin: 04/20/17 21:52 Dose: 0.5 mg Metronidazole 250 mg/ (Miscellaneous) 50 mls @ 100 mls/hr IVPB Q8 [facility] Last Admin: 04/20/17 21:45 Dose: 100 mls/hr Gentamicin Sulfate/Sodium Chloride (Gentamicin Iv 80 Mg Premix) 80 mg in 100 mls @ 100 mls/hr IVPB MWF [facility] Last Admin: 04/20/17 12:43 Dose: 100 mls/hr Vancomycin HCl 500 mg/ Sodium (Chloride) 100 mls @ 100 mls/hr IVPB MWF [facility] Last Admin: 04/20/17 14:32 Dose: 100 mls/hr Insulin Human Regular (Novolin R) 0 unit SC ACHS [facility] PRN Reason: Protocol Last Admin: 04/20/17 21:41 Dose: Not Given Levothyroxine Sodium (Synthroid) 50 mcg PO DAILY@0630 [facility] Last Admin: 04/20/17 06:00 Dose: 50 mcg Morphine Sulfate (Morphine) 1 mg IVP Q15M PRN PRN Reason: Pain, moderate (4-7) Last Admin: 04/20/17 00:45 Dose: 1 mg Oxycodone/Acetaminophen (Percocet 5/325 Mg Tab) 1 tab PO Q6H PRN PRN Reason: Pain, moderate (4-7) Stop: 04/22/17 09:55 Last Admin: 04/19/17 22:38 Dose: 1 tab Vitamin B Complex/Vit C/Folic Acid (Nephro-Nandini) 1 tab PO 0800 [facility] Last Admin: 04/20/17 09:05 Dose: 1 tab Zolpidem Tartrate (Ambien) 5 mg PO HS PRN PRN Reason: Insomnia - Labs Labs: 04/19/17 13:53 04/19/17 06:00 PT 16.5 SECONDS (9.7-12.2) H 04/19/17 06:00 INR 1.5 04/19/17 06:00 APTT 34 SECONDS (21-34) 04/19/17 13:53 - Constitutional Appears: No Acute Distress, Cachectic, Chronically Ill - Eye Exam Eye Exam: EOMI, PERRL - ENT Exam ENT Exam: Normal Oropharynx - Neck Exam Neck Exam: Normal Inspection - Respiratory Exam Respiratory Exam: Decreased Breath Sounds - Cardiovascular Exam Cardiovascular Exam: REGULAR RHYTHM, +S1, +S2 - GI/Abdominal Exam GI & Abdominal Exam: Soft, Normal Bowel Sounds - Neurological Exam Neurological Exam: Awake - Psychiatric Exam Psychiatric exam: Normal Mood - Skin Skin Exam: Warm Assessment and Plan (1) Bilateral cellulitis of lower leg Status: Acute (2) Gangrene Assessment & Plan: 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 Bilateral stumps including dressings. Analgesics as needed continue IV antibiotics post hemodialysis. DC IV Flagyl in a.m. Status: Acute (3) ESRD (end stage renal disease) on dialysis Status: Acute (4) Anemia Assessment & Plan: watch H&H. renal and surgery on board Status: Chronic (5) DM2 (diabetes mellitus, type 2) Status: Chronic
--- NOTE | 2017-04-21 00:50 | CP.PCM.PN ---
Subjective - Date & Time of Evaluation Date of Evaluation: 04/21/17 Time of Evaluation: 00:48 - Subjective Subjective: SURGERY NOTE FOR DR. STANLEY 86F seen and examined at bedside. Patient resting comfortably. Dressings on b/l BKA CDI. Objective - Vital Signs/Intake and Output Vital Signs (last 24 hours): Temp Pulse Resp BP Pulse Ox 97.2 F L 86 19 104/62 96 04/20/17 15:56 04/20/17 15:56 04/20/17 15:56 04/20/17 15:56 04/20/17 15:56 - Medications Medications: Current Medications Calcium Acetate (Phoslo) 667 mg PO DAILY [facility] Last Admin: 04/20/17 10:20 Dose: Not Given Epoetin Kailash (Procrit) 10,000 unit IV TTS [facility] Last Admin: 04/20/17 11:10 Dose: 10,000 unit Ergocalciferol (Drisdol 50,000 Intl Units Cap) 1 cap PO Q7D [facility] Last Admin: 04/19/17 21:03 Dose: 1 cap Famotidine (Pepcid) 20 mg PO DAILY [facility] Last Admin: 04/20/17 10:20 Dose: Not Given Heparin Sodium (Porcine) (Heparin) 5,000 units SC Q8 [facility] Last Admin: 04/20/17 21:45 Dose: 5,000 units Hydromorphone HCl (Dilaudid) 0.5 mg IVP Q4H PRN PRN Reason: Pain, severe (8-10) Last Admin: 04/20/17 21:52 Dose: 0.5 mg Metronidazole 250 mg/ (Miscellaneous) 50 mls @ 100 mls/hr IVPB Q8 [facility] Last Admin: 04/20/17 21:45 Dose: 100 mls/hr Gentamicin Sulfate/Sodium Chloride (Gentamicin Iv 80 Mg Premix) 80 mg in 100 mls @ 100 mls/hr IVPB MWF [facility] Last Admin: 04/20/17 12:43 Dose: 100 mls/hr Vancomycin HCl 500 mg/ Sodium (Chloride) 100 mls @ 100 mls/hr IVPB MWF [facility] Last Admin: 04/20/17 14:32 Dose: 100 mls/hr Insulin Human Regular (Novolin R) 0 unit SC ACHS [facility] PRN Reason: Protocol Last Admin: 04/20/17 21:41 Dose: Not Given Levothyroxine Sodium (Synthroid) 50 mcg PO DAILY@0630 [facility] Last Admin: 04/20/17 06:00 Dose: 50 mcg Morphine Sulfate (Morphine) 1 mg IVP Q15M PRN PRN Reason: Pain, moderate (4-7) Last Admin: 04/20/17 00:45 Dose: 1 mg Oxycodone/Acetaminophen (Percocet 5/325 Mg Tab) 1 tab PO Q6H PRN PRN Reason: Pain, moderate (4-7) Stop: 04/22/17 09:55 Last Admin: 04/19/17 22:38 Dose: 1 tab Vitamin B Complex/Vit C/Folic Acid (Nephro-Nandini) 1 tab PO 0800 [facility] Last Admin: 04/20/17 09:05 Dose: 1 tab Zolpidem Tartrate (Ambien) 5 mg PO HS PRN PRN Reason: Insomnia - Labs Labs: 04/19/17 13:53 04/19/17 06:00 PT 16.5 SECONDS (9.7-12.2) H 04/19/17 06:00 INR 1.5 04/19/17 06:00 APTT 34 SECONDS (21-34) 04/19/17 13:53 - Constitutional Appears: Non-toxic, No Acute Distress - Respiratory Exam Respiratory Exam: Clear to Ausculation Bilateral, NORMAL BREATHING PATTERN - Cardiovascular Exam Cardiovascular Exam: REGULAR RHYTHM, +S1, +S2 - Extremities Exam Additional comments: b/l BKA, dressings CDI. - Neurological Exam Neurological Exam: Awake Assessment and Plan - Assessment and Plan (Free Text) Assessment: 86F s/p B/l AKA POD2 -Analgesics -Dressings c/d/i -Physical therapy Further recs discuss with Dr. Amber Willett, PGY2
[2017-04-21] MEDS: metroNIDAZOLE IV 500 mg/100 ml 250 MG in Premixed IV 1 EA IVPB SCH ×3 (05:15→21:59)
[2017-04-21] MEDS: Levothyroxine 50 MCG TAB PO SCH (05:31)
[2017-04-21] MEDS: (Novolin R) Insulin Human Regular 100 units/ml vial SC SCH ×4 (06:55→21:53)
[2017-04-21] MEDS: Multivitamin Vitamin B Complex (Nephro-Vite) Tab PO SCH (09:05)
[2017-04-21] MEDS: Oxycodone/Acetaminophen 5/325 mg Tab PO PRN (11:39)
[2017-04-21] MEDS ORDERED: Albumin Human 25% (12.5 gm/50 ml) IV ONE ×2 (15:31→15:33)
--- NOTE | 2017-04-21 15:53 | CP.PCM.PN ---
Subjective - Date & Time of Evaluation Date of Evaluation: 04/21/17 Time of Evaluation: 15:50 - Subjective Subjective: on hd at present bp low to support with albumen also to get 2 u PRBC on hd watch for sepsis especially as hd cath is still in. discussed w family at bedside prog guarded. bilat aka amputations done. Objective - Vital Signs/Intake and Output Vital Signs (last 24 hours): Temp Pulse Resp BP Pulse Ox 97.4 F L 109 H 19 81/46 L 98 04/21/17 15:20 04/21/17 15:20 04/21/17 15:20 04/21/17 15:20 04/21/17 15:20 Intake and Output: 04/21/17 04/21/17 06:59 18:59 Intake Total 150 Balance 150 - Medications Medications: Current Medications Calcium Acetate (Phoslo) 667 mg PO DAILY [facility] Last Admin: 04/21/17 09:04 Dose: 667 mg Epoetin Kailash (Procrit) 10,000 unit IV TTS [facility] Last Admin: 04/20/17 11:10 Dose: 10,000 unit Ergocalciferol (Drisdol 50,000 Intl Units Cap) 1 cap PO Q7D [facility] Last Admin: 04/19/17 21:03 Dose: 1 cap Famotidine (Pepcid) 20 mg PO DAILY [facility] Last Admin: 04/21/17 09:04 Dose: 20 mg Heparin Sodium (Porcine) (Heparin) 5,000 units SC Q8 [facility] Last Admin: 04/21/17 13:54 Dose: Not Given Hydromorphone HCl (Dilaudid) 0.5 mg IVP Q4H PRN PRN Reason: Pain, severe (8-10) Last Admin: 04/20/17 21:52 Dose: 0.5 mg Hydromorphone HCl (Dilaudid) 0.5 mg IVP Q6H PRN PRN Reason: Pain, moderate (4-7) Metronidazole 250 mg/ (Miscellaneous) 50 mls @ 100 mls/hr IVPB Q8 [facility] Last Admin: 04/21/17 13:53 Dose: 100 mls/hr Gentamicin Sulfate/Sodium Chloride (Gentamicin Iv 80 Mg Premix) 80 mg in 100 mls @ 100 mls/hr IVPB MWF [facility] Last Admin: 04/20/17 12:43 Dose: 100 mls/hr Vancomycin HCl 500 mg/ Sodium (Chloride) 100 mls @ 100 mls/hr IVPB MWF [facility] Last Admin: 04/20/17 14:32 Dose: 100 mls/hr Insulin Human Regular (Novolin R) 0 unit SC ACHS [facility] PRN Reason: Protocol Last Admin: 04/21/17 12:36 Dose: Not Given Levothyroxine Sodium (Synthroid) 50 mcg PO DAILY@0630 [facility] Last Admin: 04/21/17 05:31 Dose: 50 mcg Morphine Sulfate (Morphine) 1 mg IVP Q15M PRN PRN Reason: Pain, moderate (4-7) Last Admin: 04/20/17 00:45 Dose: 1 mg Vitamin B Complex/Vit C/Folic Acid (Nephro-Nandini) 1 tab PO 0800 [facility] Last Admin: 04/21/17 09:05 Dose: 1 tab Zolpidem Tartrate (Ambien) 5 mg PO HS PRN PRN Reason: Insomnia - Labs Labs: 04/19/17 13:53 04/19/17 06:00 PT 16.5 SECONDS (9.7-12.2) H 04/19/17 06:00 INR 1.5 04/19/17 06:00 APTT 34 SECONDS (21-34) 04/19/17 13:53 - Constitutional Appears: Non-toxic - Head Exam Head Exam: NORMAL INSPECTION - Eye Exam Eye Exam: Normal appearance - ENT Exam ENT Exam: Mucous Membranes Moist - Neck Exam Neck Exam: Normal Inspection - Respiratory Exam Respiratory Exam: NORMAL BREATHING PATTERN - Cardiovascular Exam Cardiovascular Exam: REGULAR RHYTHM - GI/Abdominal Exam GI & Abdominal Exam: Soft, Normal Bowel Sounds - Neurological Exam Neurological Exam: Alert, Awake - Skin Skin Exam: Dry, Warm Assessment and Plan - Assessment and Plan (Free Text) Plan: hd
[2017-04-21] MEDS: Epoetin Alfa 10,000 unit/ml Dialysis IV SCH (16:15)
--- NOTE | 2017-04-21 21:52 | CP.PCM.PN ---
Subjective - Date & Time of Evaluation Date of Evaluation: 04/21/17 Time of Evaluation: 21:52 - Subjective Subjective: afebrile Patient resting comfortably. Dressings on b/l BKA CDI. s/p hd today. Daughter at bedside Objective - Vital Signs/Intake and Output Vital Signs (last 24 hours): Temp Pulse Resp BP Pulse Ox 98.1 F 101 H 16 96/62 L 98 04/21/17 21:30 04/21/17 21:30 04/21/17 18:30 04/21/17 21:30 04/21/17 18:30 Intake and Output: 04/21/17 04/22/17 18:59 06:59 Intake Total 530 120 Balance 530 120 - Medications Medications: Current Medications Calcium Acetate (Phoslo) 667 mg PO DAILY [facility] Last Admin: 04/21/17 09:04 Dose: 667 mg Epoetin Kailash (Procrit) 10,000 unit IV TTS [facility] Last Admin: 04/21/17 16:15 Dose: 10,000 unit Ergocalciferol (Drisdol 50,000 Intl Units Cap) 1 cap PO Q7D [facility] Last Admin: 04/19/17 21:03 Dose: 1 cap Famotidine (Pepcid) 20 mg PO DAILY [facility] Last Admin: 04/21/17 09:04 Dose: 20 mg Heparin Sodium (Porcine) (Heparin) 5,000 units SC Q8 [facility] Last Admin: 04/21/17 13:54 Dose: Not Given Hydromorphone HCl (Dilaudid) 0.5 mg IVP Q4H PRN PRN Reason: Pain, severe (8-10) Last Admin: 04/20/17 21:52 Dose: 0.5 mg Hydromorphone HCl (Dilaudid) 0.5 mg IVP Q6H PRN PRN Reason: Pain, moderate (4-7) Metronidazole 250 mg/ (Miscellaneous) 50 mls @ 100 mls/hr IVPB Q8 [facility] Last Admin: 04/21/17 13:53 Dose: 100 mls/hr Gentamicin Sulfate/Sodium Chloride (Gentamicin Iv 80 Mg Premix) 80 mg in 100 mls @ 100 mls/hr IVPB MWF [facility] Last Admin: 04/20/17 12:43 Dose: 100 mls/hr Vancomycin HCl 500 mg/ Sodium (Chloride) 100 mls @ 100 mls/hr IVPB MWF [facility] Last Admin: 04/20/17 14:32 Dose: 100 mls/hr Insulin Human Regular (Novolin R) 0 unit SC ACHS [facility] PRN Reason: Protocol Last Admin: 04/21/17 12:36 Dose: Not Given Levothyroxine Sodium (Synthroid) 50 mcg PO DAILY@0630 [facility] Last Admin: 04/21/17 05:31 Dose: 50 mcg Morphine Sulfate (Morphine) 1 mg IVP Q15M PRN PRN Reason: Pain, moderate (4-7) Last Admin: 04/20/17 00:45 Dose: 1 mg Vitamin B Complex/Vit C/Folic Acid (Nephro-Nandini) 1 tab PO 0800 [facility] Last Admin: 04/21/17 09:05 Dose: 1 tab Zolpidem Tartrate (Ambien) 5 mg PO HS PRN PRN Reason: Insomnia - Labs Labs: 04/19/17 13:53 04/19/17 06:00 PT 16.5 SECONDS (9.7-12.2) H 04/19/17 06:00 INR 1.5 04/19/17 06:00 APTT 34 SECONDS (21-34) 04/19/17 13:53 - Constitutional Appears: No Acute Distress, Cachectic, Chronically Ill - Eye Exam Eye Exam: EOMI, PERRL - ENT Exam ENT Exam: Normal Oropharynx - Neck Exam Neck Exam: Normal Inspection - Respiratory Exam Respiratory Exam: Clear to Ausculation Bilateral - Cardiovascular Exam Cardiovascular Exam: REGULAR RHYTHM, +S1, +S2 - GI/Abdominal Exam GI & Abdominal Exam: Soft, Normal Bowel Sounds - Extremities Exam Extremities Exam: Normal Inspection (bilateral above-knee amputations. DressingsC/D/I.) - Neurological Exam Neurological Exam: Awake - Skin Skin Exam: Warm Assessment and Plan (1) Bilateral cellulitis of lower leg Assessment & Plan: continue IV antibiotics post hemodialysis. DC IV Flagyl 04/21/17.. Status: Acute (2) Gangrene Assessment & Plan: S/P BILATERAL ABOVE-KNEE AMPUTATIONS 04/19/19 Status: Acute (3) ESRD (end stage renal disease) on dialysis Status: Acute (4) Anemia Status: Chronic (5) DM2 (diabetes mellitus, type 2) Status: Chronic
--- NOTE | 2017-04-22 04:03 | PN ---
DATE: SUBJECTIVE: The patient was seen and examined on the bedside, sleepy, arousable, looking comfortable, daughter was sitting on the bedside, also having lower legs pain, but getting better with the medication. As per patient and daughter, Percocet is giving hallucinations and delusions, we will discontinue the Percocet and continue the Dilaudid. No nausea, vomiting, or diarrhea. No headache or dizziness. PHYSICAL EXAMINATION: VITAL SIGNS: Temperature 97.5, pulse 99, blood pressure 89/54, and respiratory rate 16. HEENT: Head is normocephalic and atraumatic. Eyes; PERRLA. Extraocular muscles intact. Conjunctivae clear. Nose patent. Mucous membrane moist. NECK: Supple. No carotid bruits, JVD, or thyromegaly. CHEST: Bilaterally symmetrical. HEART: S1 and S2 positive. LUNGS: Clear to auscultation. ABDOMEN: Soft. Bowel sounds present. No organomegaly. EXTREMITIES: No edema and no cyanosis. NEUROLOGICAL: The patient is awake and alert. Moving all 4 extremities. No focal deficit. MEDICATIONS: Ambien, Dilaudid, calcium, gentamicin, heparin, metronidazole, morphine, Pepcid, PhosLo, Procrit Synthroid, and vancomycin. LABORATORY DATA: White blood cell 13.5, hemoglobin 8.6, hematocrit is 37.6, and platelets 327. Glucose 99, 108, 87, 93,120, and 377. ASSESSMENT AND PLAN: Ms. Marj Caldwell is an 86 years old lady with multiple medical problems who came in with gangrenous toes with maggots, severe peripheral vascular disease, finally went for surgery bilateral below-knee amputation, and now has dressing on that. Renal failure with hemodialysis 3 times a week, analgesic, and physical therapy. The surgery is done by Dr. Clark, history of anemia, status post blood transfusion, once in a while feeling phantom pain, diabetes mellitus type 2, bilateral cellulitis of the legs, Dr. Pilar Funk discontinue the IV Flagyl, bilateral stumps have dressing, discussion done with daughter including discharge plan and physical therapy. We will followup. Rosalinda Onofre MD
[2017-04-22] MEDS: Levothyroxine 50 MCG TAB PO SCH (05:42)
[2017-04-22] MEDS: HYDROmorphone 0.5 mg/0.5 ml ISec IVP PRN ×3 (05:57→20:00)
[2017-04-22] MEDS: (Novolin R) Insulin Human Regular 100 units/ml vial SC SCH ×4 (07:23→22:10)
[2017-04-22] MEDS: Multivitamin Vitamin B Complex (Nephro-Vite) Tab PO SCH (08:25)
--- NOTE | 2017-04-22 13:23 | CP.PCM.PN ---
Subjective - Date & Time of Evaluation Date of Evaluation: 04/22/17 Time of Evaluation: 07:30 - Subjective Subjective: Vascular surgery Pt S&E, NAEO. Complains of some pain but it is tolerable. No other complaints. Objective - Vital Signs/Intake and Output Vital Signs (last 24 hours): Temp Pulse Resp BP Pulse Ox 97.6 F 107 H 20 141/77 100 04/22/17 10:00 04/22/17 10:00 04/22/17 10:00 04/22/17 10:00 04/22/17 10:00 Intake and Output: 04/22/17 04/22/17 06:59 18:59 Intake Total 120 Balance 120 - Medications Medications: Current Medications Calcium Acetate (Phoslo) 667 mg PO DAILY [facility] Last Admin: 04/22/17 09:22 Dose: 667 mg Epoetin Kailash (Procrit) 10,000 unit IV TTS [facility] Last Admin: 04/21/17 16:15 Dose: 10,000 unit Ergocalciferol (Drisdol 50,000 Intl Units Cap) 1 cap PO Q7D [facility] Last Admin: 04/19/17 21:03 Dose: 1 cap Famotidine (Pepcid) 20 mg PO DAILY [facility] Last Admin: 04/22/17 09:22 Dose: 20 mg Heparin Sodium (Porcine) (Heparin) 5,000 units SC Q8 [facility] Last Admin: 04/22/17 05:14 Dose: 5,000 units Hydromorphone HCl (Dilaudid) 0.5 mg IVP Q4H PRN PRN Reason: Pain, severe (8-10) Last Admin: 04/22/17 05:57 Dose: 0.5 mg Hydromorphone HCl (Dilaudid) 0.5 mg IVP Q6H PRN PRN Reason: Pain, moderate (4-7) Last Admin: 04/22/17 09:22 Dose: 0.5 mg Gentamicin Sulfate/Sodium Chloride (Gentamicin Iv 80 Mg Premix) 80 mg in 100 mls @ 100 mls/hr IVPB [facility] Last Admin: 04/20/17 12:43 Dose: 100 mls/hr Vancomycin HCl 500 mg/ Sodium (Chloride) 100 mls @ 100 mls/hr IVPB [facility] Last Admin: 04/20/17 14:32 Dose: 100 mls/hr Insulin Human Regular (Novolin R) 0 unit SC ACHS [facility] PRN Reason: Protocol Last Admin: 04/22/17 12:14 Dose: Not Given Levothyroxine Sodium (Synthroid) 50 mcg PO DAILY@0630 [facility] Last Admin: 04/22/17 05:42 Dose: 50 mcg Morphine Sulfate (Morphine) 1 mg IVP Q15M PRN PRN Reason: Pain, moderate (4-7) Last Admin: 04/20/17 00:45 Dose: 1 mg Vitamin B Complex/Vit C/Folic Acid (Nephro-Nandini) 1 tab PO 0800 [facility] Last Admin: 04/22/17 08:25 Dose: 1 tab Zolpidem Tartrate (Ambien) 5 mg PO HS PRN PRN Reason: Insomnia - Labs Labs: 04/19/17 13:53 04/19/17 06:00 PT 16.5 SECONDS (9.7-12.2) H 04/19/17 06:00 INR 1.5 04/19/17 06:00 APTT 34 SECONDS (21-34) 04/19/17 13:53 - Constitutional Appears: Non-toxic, No Acute Distress - Head Exam Head Exam: ATRAUMATIC, NORMOCEPHALIC - Respiratory Exam Respiratory Exam: NORMAL BREATHING PATTERN. absent: Respiratory Distress - Extremities Exam Additional comments: b/l AKA, dressings CDI. - Neurological Exam Neurological Exam: Alert, Awake - Skin Skin Exam: Dry, Warm Assessment and Plan - Assessment and Plan (Free Text) Assessment: 86F s/p B/l AKA POD3 Plan: -Analgesics -Dressings c/d/i -Physical therapy D/W Dr. Amber Mast PGY4
[2017-04-23] MEDS: HYDROmorphone 0.5 mg/0.5 ml ISec IVP PRN ×4 (04:49→22:49)
[2017-04-23] MEDS: Levothyroxine 50 MCG TAB PO SCH (05:52)
[2017-04-23] MEDS: (Novolin R) Insulin Human Regular 100 units/ml vial SC SCH ×4 (08:00→21:27)
[2017-04-23] MEDS: Multivitamin Vitamin B Complex (Nephro-Vite) Tab PO SCH (08:30)
--- NOTE | 2017-04-23 09:26 | PN ---
DATE: 04/20/2017 SUBJECTIVE: This morning her blood pressure is significantly low because she has not been eating or drinking well; however, it began to slightly come up and she went to have dialysis. The dialysis was short and during dialysis they gave consent for some fluid, blood pressure now is 114/58, much, much better. When I saw her in the room, she was sleeping, I woke her up, recognized me. She was answering appropriately to questions, etc. She denied any shortness of breath at that point. I asked her if she ate and she said a little, but according to the attending nurse, she is not eating well. REVIEW OF SYSTEMS: No nausea or vomiting, although there is some loose stool, according to the daughter. We just discontinued lactulose. Rest of the review of systems otherwise negative. PHYSICAL EXAMINATION: GENERAL: Alert, oriented and sleepy. She gets the narcotic medications for the pain, though she said that the "pain is little." VITAL SIGNS: Blood pressure 114/58, pulse rate about 80 per minute, respiratory rate normal in intensity and rate, clinically afebrile. CARDIOPULMONARY: From the cardiopulmonary view point, the jugular veins remained nondistended, LUNGS: Showed no significant adventitious sound, but no good deep inspiration during my exam. HEART: Heart sounds normal and regular with minimal systolic murmur, chronic in nature. ABDOMEN: Unremarkable. CENTRAL NERVOUS SYSTEM: Alert and oriented. Moving extremities equally, although she is not moving well the lower extremities, the amputated above the knee. They called the daughter Maribel because when I was there, she was visiting some of the subacute rehab in anticipation for her mother being transferred to one of them. She was looking one in [place] in [place] or some place from where she comes, I do not recall the name of the place. ASSESSMENT: Hypertensive heart disease, congestive heart failure, compensated with severe atherosclerotic cardiovascular disease, coronary artery disease, end-stage renal disease, and diabetes. PLAN: I had a conversation with the daughter, Maribel over the telephone and strongly encouraged them to see if her mother needs to even drink to regain some of the strength, then will stabilize her from the hemodynamic situation. From my angle, she is ready to go to the rehab as soon as arrangements are completed. Obviously, this has to be approved by the medical attending, Rosalinda Bull of record. After recovering in the rehab the family was instructed to come to the office for a regular visit. At this point in time all cardiac medications are on hold. Denis Currie MD MTDSuzy
--- NOTE | 2017-04-23 09:55 | PN ---
DATE: 04/19/2017 SUBJECTIVE: The patient was seen and examined on 04/19/2017. No hematuria or hematochezia. No swelling of the legs. No chest pain, no palpitations. No headache and no dizziness. Complaining about phantom pain of both lower extremities. Bilateral knee amputation was done. Family was around. PHYSICAL EXAMINATION: VITAL SIGNS: Temperature 97.4, pulse 82, respiration 17, blood pressure 121/74. HEENT: Head is normocephalic and atraumatic. Eyes: PERRLA. Extraocular muscles intact. Conjunctivae clear. Nose patent. Mucous membranes are moist. NECK: Supple. No carotid bruits. No JVD or thyromegaly. CHEST: Bilaterally symmetrical. HEART: S1 and S2 positive. LUNGS: Clear to auscultation. ABDOMEN: Soft. Bowel sounds present. No organomegaly. EXTREMITIES: Had dressings on both sites of amputation, above knee. NEUROLOGIC: The patient is awake and alert. Follow simple command. Moving all 4 extremities. MEDICATIONS: PhosLo, Percocet, Pepcid, metronidazole, vancomycin, insulin, lactulose, levothyroxine, morphine sulfate. LABORATORY DATA: White blood cell 13.5. other labs noted ASSESSMENT AND PLAN: Leukopenia and anemia. The patient has severe peripheral vascular disease, chronic ulcer of the toes for many days and the patient is ready to go for surgery. Gastrointestinal and deep venous thrombosis prophylaxis. Repeat labs. We will follow up. Rosalinda Onofre MD [facility]
--- NOTE | 2017-04-23 10:00 | PN ---
DATE: SUBJECTIVE: The patient is an 86-year-old lady. The patient is seen and examined on the bedside, looking comfortable, had dressing on both lower extremities. Family is around. No nausea, vomiting, or diarrhea. No hematuria or hematochezia. No headache. No dizziness. No fever. No chills. PHYSICAL EXAMINATION VITAL SIGNS: Temperature 97.2, pulse 56, respirations 19, blood pressure 104/64, pulse oximetry is 96. HEENT: Head normocephalic, atraumatic. Eyes, PERRLA. Extraocular movements intact. Conjunctivae clear. Nose is patent. Mucous membranes are moist. NECK: Supple. No carotid bruits, JVD, or thyromegaly. CHEST: Bilaterally symmetrical. HEART: S1 and S2 positive. LUNGS: Clear to auscultation. ABDOMEN: Soft. Bowel sounds present. No organomegaly. EXTREMITIES: No edema. No cyanosis. Both extremities have amputations, above-knee, have dressings. MEDICATIONS: Procrit, vitamin D, Pepcid, heparin, Dilaudid, metronidazole, vancomycin, insulin, lactulose, levothyroxine, oxycodone, vitamin B complex, and Zolpidem. LABORATORY DATA: White blood cells 13.9, hemoglobin 8.6, hematocrit 27.6, and platelets 327. Sodium 138, potassium 4.3, BUN 36, creatinine 4.0. ASSESSMENT AND PLAN: Ms. Paulette Mcmahan is an 86-year-old lady admitted with renal insufficiency, getting hemodialysis; anemia; leukocytosis; hypothyroidism; status post bilateral [id number] amputations, postoperative day #2. Monitoring H and H and labs. We will decrease analgesic. Dressing by physical therapy. Surgery was done by Dr. Clark. Infectious disease, Dr. Pilar Funk, is on the case. Dr. Denis Currie is the patient's information services consultant and the patient has Dr. Haney, professional builder. She has bilateral cellulitis of lower extremity, gangrene of the toes, diabetes mellitus, wound care, physical therapy . Family is aware of this situation. We will follow up. Rosalinda Onofre MD [facility]
--- NOTE | 2017-04-23 13:41 | CP.PCM.PN ---
Subjective - Date & Time of Evaluation Date of Evaluation: 04/23/17 Time of Evaluation: 06:40 - Subjective Subjective: Pt seen and examined. Resting comfortably. B/l extremity dressings are c/d/i. Objective - Vital Signs/Intake and Output Vital Signs (last 24 hours): Temp Pulse Resp BP Pulse Ox 98 F 113 H 20 119/67 100 04/23/17 08:00 04/23/17 08:00 04/23/17 08:00 04/23/17 08:00 04/23/17 08:00 - Medications Medications: Current Medications Calcium Acetate (Phoslo) 667 mg PO DAILY [facility] Last Admin: 04/23/17 09:57 Dose: 667 mg Epoetin Kailash (Procrit) 10,000 unit IV TTS [facility] Last Admin: 04/21/17 16:15 Dose: 10,000 unit Ergocalciferol (Drisdol 50,000 Intl Units Cap) 1 cap PO Q7D [facility] Last Admin: 04/19/17 21:03 Dose: 1 cap Famotidine (Pepcid) 20 mg PO DAILY [facility] Last Admin: 04/23/17 09:58 Dose: 20 mg Hydromorphone HCl (Dilaudid) 0.5 mg IVP Q4H PRN PRN Reason: Pain, severe (8-10) Last Admin: 04/23/17 09:52 Dose: 0.5 mg Hydromorphone HCl (Dilaudid) 0.5 mg IVP Q6H PRN PRN Reason: Pain, moderate (4-7) Last Admin: 04/22/17 09:22 Dose: 0.5 mg Vancomycin HCl 500 mg/ Sodium (Chloride) 100 mls @ 100 mls/hr [place]PB [facility] Last Admin: 04/23/17 09:30 Dose: 100 mls/hr Gentamicin Sulfate 80 mg/ (Sodium Chloride) 102 mls @ 100 mls/hr IVPB [facility] Last Admin: 04/23/17 10:00 Dose: 100 mls/hr Insulin Human Regular (Novolin R) 0 unit SC ACHS [facility] PRN Reason: Protocol Last Admin: 04/23/17 12:00 Dose: 1 unit Levothyroxine Sodium (Synthroid) 50 mcg PO DAILY@0630 [facility] Last Admin: 04/23/17 05:52 Dose: 50 mcg Vitamin B Complex/Vit C/Folic Acid (Nephro-Nandini) 1 tab PO 0800 [facility] Last Admin: 04/23/17 08:30 Dose: 1 tab Zolpidem Tartrate (Ambien) 5 mg PO HS PRN PRN Reason: Insomnia - Labs Labs: 04/19/17 13:53 04/19/17 06:00 PT 16.5 SECONDS (9.7-12.2) H 04/19/17 06:00 INR 1.5 04/19/17 06:00 APTT 34 SECONDS (21-34) 04/19/17 13:53 - Constitutional Appears: No Acute Distress - Head Exam Head Exam: NORMOCEPHALIC - Eye Exam Eye Exam: Normal appearance Pupil Exam: NORMAL ACCOMODATION - ENT Exam ENT Exam: Mucous Membranes Moist - Cardiovascular Exam Cardiovascular Exam: +S1, +S2 - GI/Abdominal Exam GI & Abdominal Exam: Soft - Exam Exam: NORMAL INSPECTION - Neurological Exam Neurological Exam: Alert, Awake, Oriented x3 - Skin Skin Exam: Dry, Intact, Warm Assessment and Plan - Assessment and Plan (Free Text) Assessment: 86F s/p B/l AKA POD4 -Analgesics -Dressings c/d/i -C/w Physical therapy D/W Dr. Amber Bojorquez PGY-2
--- NOTE | 2017-04-23 13:58 | CP.PCM.PN ---
Subjective - Date & Time of Evaluation Date of Evaluation: 04/23/17 Time of Evaluation: 13:58 - Subjective Subjective: afebrile MOANING AND GROANING aS AND ANALGESICS WORN OFF. Dressings on b/l BKA CDI.CHANGE THIS A.M. BY SURGICAL TEAM REPORTED BY RN Daughter at bedside. ANTIBIOTICS DISCONTINUED. EXPLAINED TO THE DAUGHTER WILL OBSERVE FEVER CURVE fOLLOW-UP THE WOUND CARE CLOSELY. wILL FOLLOW THE PATIENT WHILE IN HOUSE. Objective - Vital Signs/Intake and Output Vital Signs (last 24 hours): Temp Pulse Resp BP Pulse Ox 98 F 113 H 20 119/67 100 04/23/17 08:00 04/23/17 08:00 04/23/17 08:00 04/23/17 08:00 04/23/17 08:00 - Medications Medications: Current Medications Calcium Acetate (Phoslo) 667 mg PO DAILY [facility] Last Admin: 04/23/17 09:57 Dose: 667 mg Epoetin Kailash (Procrit) 10,000 unit IV TTS [facility] Last Admin: 04/21/17 16:15 Dose: 10,000 unit Ergocalciferol (Drisdol 50,000 Intl Units Cap) 1 cap PO Q7D [facility] Last Admin: 04/19/17 21:03 Dose: 1 cap Famotidine (Pepcid) 20 mg PO DAILY [facility] Last Admin: 04/23/17 09:58 Dose: 20 mg Hydromorphone HCl (Dilaudid) 0.5 mg IVP Q4H PRN PRN Reason: Pain, severe (8-10) Last Admin: 04/23/17 09:52 Dose: 0.5 mg Hydromorphone HCl (Dilaudid) 0.5 mg IVP Q6H PRN PRN Reason: Pain, moderate (4-7) Last Admin: 04/22/17 09:22 Dose: 0.5 mg Gentamicin Sulfate 80 mg/ (Sodium Chloride) 102 mls @ 100 mls/hr IVPB MWF [facility] Last Admin: 04/23/17 10:00 Dose: 100 mls/hr Insulin Human Regular (Novolin R) 0 unit SC ACHS [facility] PRN Reason: Protocol Last Admin: 04/23/17 12:00 Dose: 1 unit Levothyroxine Sodium (Synthroid) 50 mcg PO DAILY@0630 [facility] Last Admin: 04/23/17 05:52 Dose: 50 mcg Vitamin B Complex/Vit C/Folic Acid (Nephro-Nandini) 1 tab PO 0800 [facility] Last Admin: 04/23/17 08:30 Dose: 1 tab Zolpidem Tartrate (Ambien) 5 mg PO HS PRN PRN Reason: Insomnia - Labs Labs: 04/19/17 13:53 04/19/17 06:00 PT 16.5 SECONDS (9.7-12.2) H 04/19/17 06:00 INR 1.5 04/19/17 06:00 APTT 34 SECONDS (21-34) 04/19/17 13:53 - Constitutional Appears: No Acute Distress, Chronically Ill - Head Exam Head Exam: NORMAL INSPECTION - Eye Exam Eye Exam: EOMI, PERRL - ENT Exam ENT Exam: Normal Oropharynx - Neck Exam Neck Exam: Normal Inspection - Respiratory Exam Respiratory Exam: Clear to Ausculation Bilateral - Cardiovascular Exam Cardiovascular Exam: REGULAR RHYTHM, +S1, +S2 - GI/Abdominal Exam GI & Abdominal Exam: Soft, Normal Bowel Sounds - Extremities Exam Additional comments: BILATERAL AKA. bOTH STUMPS IN DRESSINGS C/D/I - Neurological Exam Neurological Exam: Awake - Skin Skin Exam: Warm Assessment and Plan (1) Bilateral cellulitis of lower leg Status: Acute (2) Gangrene Assessment & Plan: OFF ANTIBIOTICS. OBSERVE FEVER CURVE OFF ANTIBIOTICS fOLLOW-UP CLINICALLY. cASE DISCUSSED WITH THE STAFF AND THE DAUGHTER AND SON AT BEDSIDE. Status: Acute (3) ESRD (end stage renal disease) on dialysis Status: Acute (4) Anemia Status: Chronic (5) DM2 (diabetes mellitus, type 2) Status: Chronic
--- NOTE | 2017-04-23 16:40 | CP.PCM.PN ---
Subjective - Date & Time of Evaluation Date of Evaluation: 04/23/17 Time of Evaluation: 16:38 - Subjective Subjective: DISCUSSED ABX PLAN FOR D/C WITH DR. MATAMOROS. PER DR. MATAMOROS THE PT DOES NOT NEED IV ABX ONCE D/C TO [facility]. ALSO DISCUSSED SURGERY PLAN WITH DR. STANLEY AND PT IS CLEAR FROM HIS STANDPOINT; SHE WILL NEED SUTURES REMOVED IN 1 MONTH (BY 05/24/17) . PENDING [facility] PLACEMENT FOR D/C. NO FURTHER ORDERS AT THIS TIME. Objective - Vital Signs/Intake and Output Vital Signs (last 24 hours): Temp Pulse Resp BP Pulse Ox 97.8 F 100 H 20 103/67 99 04/23/17 15:19 04/23/17 15:19 04/23/17 15:19 04/23/17 15:19 04/23/17 15:19 - Medications Medications: Current Medications Calcium Acetate (Phoslo) 667 mg PO DAILY [facility] Last Admin: 04/23/17 09:57 Dose: 667 mg Epoetin Kailash (Procrit) 10,000 unit IV TTS [facility] Last Admin: 04/21/17 16:15 Dose: 10,000 unit Ergocalciferol (Drisdol 50,000 Intl Units Cap) 1 cap PO Q7D [facility] Last Admin: 04/19/17 21:03 Dose: 1 cap Famotidine (Pepcid) 20 mg PO DAILY [facility] Last Admin: 04/23/17 09:58 Dose: 20 mg Hydromorphone HCl (Dilaudid) 0.5 mg IVP Q4H PRN PRN Reason: Pain, severe (8-10) Last Admin: 04/23/17 09:52 Dose: 0.5 mg Hydromorphone HCl (Dilaudid) 0.5 mg IVP Q6H PRN PRN Reason: Pain, moderate (4-7) Last Admin: 04/23/17 16:34 Dose: 0.5 mg Gentamicin Sulfate 80 mg/ (Sodium Chloride) 102 mls @ 100 mls/hr IVPB MWF [facility] Last Admin: 04/23/17 10:00 Dose: 100 mls/hr Insulin Human Regular (Novolin R) 0 unit SC ACHS [facility] PRN Reason: Protocol Last Admin: 04/23/17 12:00 Dose: 1 unit Levothyroxine Sodium (Synthroid) 50 mcg PO DAILY@0630 [facility] Last Admin: 04/23/17 05:52 Dose: 50 mcg Vitamin B Complex/Vit C/Folic Acid (Nephro-Nandini) 1 tab PO 0800 [facility] Last Admin: 04/23/17 08:30 Dose: 1 tab Zolpidem Tartrate (Ambien) 5 mg PO HS PRN PRN Reason: Insomnia - Labs Labs: 04/19/17 13:53 04/19/17 06:00 PT 16.5 SECONDS (9.7-12.2) H 04/19/17 06:00 INR 1.5 04/19/17 06:00 APTT 34 SECONDS (21-34) 04/19/17 13:53
--- NOTE | 2017-04-23 20:00 | CP.PCM.PN ---
Subjective - Date & Time of Evaluation Date of Evaluation: 04/23/17 Time of Evaluation: 16:00 - Subjective Subjective: SEEN ON RENAL F/U ON HD T T S S/P DAVID AKA ALL ABOVE NOTES READ Objective - Vital Signs/Intake and Output Vital Signs (last 24 hours): Temp Pulse Resp BP Pulse Ox 97.8 F 100 H 20 103/67 99 04/23/17 15:19 04/23/17 15:19 04/23/17 15:19 04/23/17 15:19 04/23/17 15:19 Intake and Output: 04/23/17 04/24/17 18:59 06:59 Intake Total 200 Balance 200 - Medications Medications: Current Medications Calcium Acetate (Phoslo) 667 mg PO DAILY [facility] Last Admin: 04/23/17 09:57 Dose: 667 mg Epoetin Kailash (Procrit) 10,000 unit IV TTS [facility] Last Admin: 04/21/17 16:15 Dose: 10,000 unit Ergocalciferol (Drisdol 50,000 Intl Units Cap) 1 cap PO Q7D [facility] Last Admin: 04/19/17 21:03 Dose: 1 cap Famotidine (Pepcid) 20 mg PO DAILY [facility] Last Admin: 04/23/17 09:58 Dose: 20 mg Hydromorphone HCl (Dilaudid) 0.5 mg IVP Q4H PRN PRN Reason: Pain, severe (8-10) Last Admin: 04/23/17 09:52 Dose: 0.5 mg Hydromorphone HCl (Dilaudid) 0.5 mg IVP Q6H PRN PRN Reason: Pain, moderate (4-7) Last Admin: 04/23/17 16:34 Dose: 0.5 mg Gentamicin Sulfate 80 mg/ (Sodium Chloride) 102 mls @ 100 mls/hr IVPB MWF [facility] Last Admin: 04/23/17 10:00 Dose: 100 mls/hr Insulin Human Regular (Novolin R) 0 unit SC ACHS [facility] PRN Reason: Protocol Last Admin: 04/23/17 12:00 Dose: 1 unit Levothyroxine Sodium (Synthroid) 50 mcg PO DAILY@0630 [facility] Last Admin: 04/23/17 05:52 Dose: 50 mcg Vitamin B Complex/Vit C/Folic Acid (Nephro-Nandini) 1 tab PO 0800 [facility] Last Admin: 04/23/17 08:30 Dose: 1 tab Zolpidem Tartrate (Ambien) 5 mg PO HS PRN PRN Reason: Insomnia - Labs Labs: 04/19/17 13:53 04/19/17 06:00 PT 16.5 SECONDS (9.7-12.2) H 04/19/17 06:00 INR 1.5 04/19/17 06:00 APTT 34 SECONDS (21-34) 04/19/17 13:53 Assessment and Plan - Assessment and Plan (Free Text) Assessment: ESRD ON HD T T S .. TO BE C/O ANEMIA OF CKD .. WILL MONITOR H/H C/O CURRENT CARE
--- NOTE | 2017-04-23 21:31 | PN ---
DATE: 04/22/2017 SUBJECTIVE: The patient was seen and examined on the bedside, looking comfortable. No nausea, vomiting or diarrhea. No hematuria or hematochezia. No swelling of the legs. Has bilateral amputation above knee. Tolerating pain with the medications. No constipation. PHYSICAL EXAMINATION: VITAL SIGNS: Temperature 97.6, pulse 107, blood pressure 140/77, respiratory rate 20. HEENT: Head is normocephalic and atraumatic. Eyes; PERRLA. Extraocular muscles intact. Conjunctivae clear. Nose patent. Mucous membrane moist. NECK: Supple. No carotid bruits, JVD, or thyromegaly. CHEST: Bilaterally symmetrical. HEART: S1 and S2 positive. LUNGS: Clear to auscultation. ABDOMEN: Soft. Bowel sounds are present. No organomegaly. EXTREMITIES: Upper extremity; no edema and no cyanosis. Lower extremity; bilaterally has dressing. MEDICATIONS: Percocet, vitamin D, Pepcid, heparin, Dilaudid, gentamicin, vancomycin, insulin, Synthroid, morphine, Nephro vitamin and Ambien. LABORATORY DATA: White blood cell 13.5, hemoglobin 8.6, hematocrit 27.6, and platelets 327. Sodium 138, potassium 4.3, BUN 36, creatinine 1.0, glucose 85. ASSESSMENT AND PLAN: Ms. Marj Caldwell is 86 years old lady with leukocytosis, anemia, renal insufficiency, getting hemodialysis, has bilateral [id number] amputations, postoperative day #3, getting *------* dressing bilaterally, physical therapy, history of severe anemia, got blood transfusion. Most of the time, family is on the bedside. Working about rehab. Sepsis, getting antibiotics with ID. History of gangrenous toes with maggots, severe peripheral vascular disease. Gastrointestinal and deep venous thrombosis prophylaxis. Repeat labs. We will follow up. Rosalinda Onofre MD
--- NOTE | 2017-04-24 00:03 | CARD ---
APPROVED REPORT EKG Measurement Heart [id number] <Conclusion> Normal sinus rhythm Left axis deviation Nonspecific T wave abnormality Prolonged QT Abnormal ECG
--- NOTE | 2017-04-24 04:33 | PN ---
DATE: 04/23/2017 SUBJECTIVE: Patient is an 86 years old female. Patient is seen and examined at bedside. Son was sitting on the bedside also. Patient was feeling pain because it was time for her to get new pain medication. Both of her extremities has dressing changed by the surgical team. No constipation. No diarrhea. Patient is having pureed diet. No nausea or vomiting. No fever. No chills. Antibiotics as per the infectious disease because patient zero white blood cells. PHYSICAL EXAMINATION: VITAL SIGNS: Temperature 98.0, pulse 113, respiratory rate 20, blood pressure 119/67, pulse oximetry 100%. HEENT: Head is normocephalic and atraumatic. Eyes; PERRLA. Extraocular muscle intact. Conjunctiva clear. Nose patent. Mucous membrane moist. NECK: Supple. No carotid bruit. No JVD or thyromegaly. CHEST: Bilaterally symmetrical. HEART: S1 and S2 is positive. LUNGS: Clear to auscultation. ABDOMEN: Soft, bowel sounds present. No organomegaly. EXTREMITIES: Both legs has amputation, BKA has an dressing. NEUROLOGIC: Patient is awake, alert, conversating with the son. LABORATORY DATA: White blood cells 13.5, hemoglobin 8.6, hematocrit 27.6, platelets 327. Sodium 130, potassium 4.3, BUN 36, creatinine 4.0. MEDICATIONS: PhosLo, Percocet, vitamin D, Pepcid, Dilaudid, insulin, Synthroid, folic acid. ASSESSMENT AND PLAN: Ms. Paulette Mcmahan is an 86 years old lady with leukocytosis, anemia, renal insufficiency on hemodialysis 3 times a week. Has severe peripheral vascular disease. Amputation both thighs, [id number]. Anemia acute on chronic, diabetes mellitus not controlled very well, bilateral cellulitis of lower extremities, gangrene, off antibiotics, observe fever curve, off antibiotics. Case discussed with the patient's son, who is on the bedside. End-stage renal disease, get dialysis 2 times a week. Gastrointestinal and deep venous thrombosis prophylaxis. Repeat labs. Rosalinda Onofre MD [facility]
[2017-04-24] MEDS: Levothyroxine 50 MCG TAB PO SCH (05:46)
[2017-04-24] MEDS: (Novolin R) Insulin Human Regular 100 units/ml vial SC SCH ×4 (07:38→21:58)
[2017-04-24] MEDS: Multivitamin Vitamin B Complex (Nephro-Vite) Tab PO SCH (08:20)
[2017-04-24] MEDS: HYDROmorphone 0.5 mg/0.5 ml ISec IVP PRN ×2 (08:21→17:42)
[2017-04-24 15:11] LABS: BASO # 0.1 K/uL (0.0-0.2); BASO % 0.6 % (0.0-2.0); EOS # 0.1 K/uL (0.0-0.7); EOS % 0.5 % (0.0-4.0); HEMATOCRIT 39.1 % (34.0-47.0); LYMPH % 8.7 % (20.0-40.0); MEAN CORPUSCULAR HEMOGLOBIN 29.1 pg (27.0-31.0); MEAN CORPUSCULAR HGB CONC 32.1 g/dL (33.0-37.0); MEAN PLATELET VOLUME 8.7 fL (7.2-11.7); MONO # 0.7 K/uL (0.0-0.8); NRBC % 0.1 % (0.0-2.0); PLATELET COUNT 382 K/uL (130-400); RED CELL DISTRIBUTION WIDTH 17.7 % (11.5-14.5)
[2017-04-24 15:18] LABS: MEAN CELL VOLUME 90.5 fL (81.0-99.0)
[2017-04-24 15:35] LABS: BILIRUBIN,TOTAL 0.6 mg/dL (0.2-1.3)
[2017-04-24 15:36] LABS: ALB/GLOB RATIO 0.6 (1.0-2.1); CALCIUM 7.6 mg/dl (8.6-10.4); TOTAL PROTEIN 6.2 g/dL (6.3-8.3)
[2017-04-24 15:37] LABS: POTASSIUM 5.4 mmol/L (3.6-5.2)
[2017-04-24 15:38] LABS: NEUTROPHIL 82 % (50-75); TOTAL CELLS COUNTED 100
--- NOTE | 2017-04-24 16:43 | CP.PCM.PN ---
Subjective - Date & Time of Evaluation Date of Evaluation: 04/24/17 Time of Evaluation: 07:15 - Subjective Subjective: Pt S&E. No complaints. For dialysis today. B/l dressings c/d/i. Objective - Vital Signs/Intake and Output Vital Signs (last 24 hours): Temp Pulse Resp BP Pulse Ox 97.3 F L 79 20 94/56 L 98 04/24/17 14:20 04/24/17 14:20 04/24/17 14:20 04/24/17 16:20 04/24/17 14:20 Intake and Output: 04/24/17 04/24/17 06:59 18:59 Intake Total 450 Balance 450 - Medications Medications: Current Medications Calcium Acetate (Phoslo) 667 mg PO DAILY [facility] Last Admin: 04/24/17 10:25 Dose: 667 mg Epoetin Kailash (Procrit) 10,000 unit IV TTS [facility] Last Admin: 04/21/17 16:15 Dose: 10,000 unit Ergocalciferol (Drisdol 50,000 Intl Units Cap) 1 cap PO Q7D [facility] Last Admin: 04/19/17 21:03 Dose: 1 cap Famotidine (Pepcid) 20 mg PO DAILY [facility] Last Admin: 04/24/17 10:25 Dose: 20 mg Hydromorphone HCl (Dilaudid) 0.5 mg IVP Q4H PRN PRN Reason: Pain, severe (8-10) Last Admin: 04/23/17 22:49 Dose: 0.5 mg Hydromorphone HCl (Dilaudid) 0.5 mg IVP Q6H PRN PRN Reason: Pain, moderate (4-7) Last Admin: 04/24/17 08:21 Dose: 0.5 mg Gentamicin Sulfate 80 mg/ (Sodium Chloride) 102 mls @ 100 mls/hr IVPB MWF [facility] Last Admin: 04/23/17 10:00 Dose: 100 mls/hr Insulin Human Regular (Novolin R) 0 unit SC ACHS [facility] PRN Reason: Protocol Last Admin: 04/24/17 12:52 Dose: Not Given Levothyroxine Sodium (Synthroid) 50 mcg PO DAILY@0630 [facility] Last Admin: 04/24/17 05:46 Dose: 50 mcg Vitamin B Complex/Vit C/Folic Acid (Nephro-Nandini) 1 tab PO 0800 [facility] Last Admin: 04/24/17 08:20 Dose: 1 tab Zolpidem Tartrate (Ambien) 5 mg PO HS PRN PRN Reason: Insomnia - Labs Labs: 04/24/17 15:05 04/24/17 15:05 PT 16.5 SECONDS (9.7-12.2) H 04/19/17 06:00 INR 1.5 04/19/17 06:00 APTT 34 SECONDS (21-34) 04/19/17 13:53 - Constitutional Appears: No Acute Distress - Head Exam Head Exam: NORMOCEPHALIC - Eye Exam Eye Exam: Normal appearance - ENT Exam ENT Exam: Mucous Membranes Moist - Respiratory Exam Respiratory Exam: NORMAL BREATHING PATTERN - Cardiovascular Exam Cardiovascular Exam: +S1, +S2 - Neurological Exam Neurological Exam: Alert, Awake - Psychiatric Exam Psychiatric exam: Normal Mood - Skin Skin Exam: Dry, Warm Assessment and Plan - Assessment and Plan (Free Text) Assessment: 86F s/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 Amber Bojorquez PGY-2
[2017-04-24] MEDS: Epoetin Alfa 10,000 unit/ml Dialysis IV SCH (16:52)
--- NOTE | 2017-04-24 17:53 | CARD ---
APPROVED REPORT EKG Measurement Heart [id number] CO [id number] <Conclusion> Sinus rhythm with 1st degree AV block Left axis deviation Nonspecific intraventricular block Abnormal ECG
--- NOTE | 2017-04-24 20:25 | CARD ---
APPROVED REPORT EKG Measurement Heart [id number] <Conclusion> Normal sinus rhythm Left axis deviation Anterior infarct, age undetermined Abnormal ECG
--- NOTE | 2017-04-24 20:38 | CP.PCM.PN ---
Subjective - Date & Time of Evaluation Date of Evaluation: 04/24/17 Time of Evaluation: 20:38 - Subjective Subjective: AFEBRILE, oN HEMODIALYSIS TTS. S/P BILATERAL ABOVE-KNEE AMPUTATION B/L STUMPS IN THE DRESSING. DRESSING C/D/I-EVANGELINA IN PLACE. PATIENT OFF ANTIBIOTICS 04/23/17. lABS REVIEWED. Objective - Vital Signs/Intake and Output Vital Signs (last 24 hours): Temp Pulse Resp BP Pulse Ox 97.6 F 88 20 118/74 98 04/24/17 17:48 04/24/17 17:48 04/24/17 17:48 04/24/17 17:48 04/24/17 17:48 - Medications Medications: Current Medications Calcium Acetate (Phoslo) 667 mg PO DAILY [facility] Last Admin: 04/24/17 10:25 Dose: 667 mg Epoetin Kailash (Procrit) 10,000 unit IV TTS [facility] Last Admin: 04/24/17 16:52 Dose: Not Given Ergocalciferol (Drisdol 50,000 Intl Units Cap) 1 cap PO Q7D [facility] Last Admin: 04/19/17 21:03 Dose: 1 cap Famotidine (Pepcid) 20 mg PO DAILY [facility] Last Admin: 04/24/17 10:25 Dose: 20 mg Hydromorphone HCl (Dilaudid) 0.5 mg IVP Q4H PRN PRN Reason: Pain, severe (8-10) Last Admin: 04/23/17 22:49 Dose: 0.5 mg Hydromorphone HCl (Dilaudid) 0.5 mg IVP Q6H PRN PRN Reason: Pain, moderate (4-7) Last Admin: 04/24/17 17:42 Dose: 0.5 mg Gentamicin Sulfate 80 mg/ (Sodium Chloride) 102 mls @ 100 mls/hr IVPB MWF [facility] Last Admin: 04/23/17 10:00 Dose: 100 mls/hr Insulin Human Regular (Novolin R) 0 unit SC ACHS [facility] PRN Reason: Protocol Last Admin: 04/24/17 17:18 Dose: Not Given Levothyroxine Sodium (Synthroid) 50 mcg PO DAILY@0630 [facility] Last Admin: 04/24/17 05:46 Dose: 50 mcg Vitamin B Complex/Vit C/Folic Acid (Nephro-Nandini) 1 tab PO 0800 [facility] Last Admin: 04/24/17 08:20 Dose: 1 tab Zolpidem Tartrate (Ambien) 5 mg PO HS PRN PRN Reason: Insomnia - Labs Labs: 04/24/17 15:05 04/24/17 15:05 PT 16.5 SECONDS (9.7-12.2) H 04/19/17 06:00 INR 1.5 04/19/17 06:00 APTT 34 SECONDS (21-34) 04/19/17 13:53 - Constitutional Appears: No Acute Distress, Cachectic, Chronically Ill - Head Exam Head Exam: NORMAL INSPECTION - Eye Exam Eye Exam: PERRL - ENT Exam ENT Exam: Normal Oropharynx - Neck Exam Neck Exam: Normal Inspection - Respiratory Exam Respiratory Exam: Clear to Ausculation Bilateral - Cardiovascular Exam Cardiovascular Exam: REGULAR RHYTHM, +S1, +S2 - GI/Abdominal Exam GI & Abdominal Exam: Soft, Normal Bowel Sounds - Extremities Exam Extremities Exam: Normal Inspection (BILATERAL AKA . bOTH STUMPS IN DRESSING. Evangelina IN PLACE.), Tenderness (ON PALPATION.) - Neurological Exam Neurological Exam: Awake - Psychiatric Exam Psychiatric exam: Normal Mood - Skin Skin Exam: Warm Assessment and Plan (1) Bilateral cellulitis of lower leg Status: Acute (2) Gangrene Assessment & Plan: S/P B/L AKA. OFF ANTIBIOTICS PATIENT FOR SUBACUTE REHABILITATION. WATCH H/H. Status: Acute (3) ESRD (end stage renal disease) on dialysis Status: Acute (4) Anemia Status: Chronic (5) DM2 (diabetes mellitus, type 2) Status: Chronic
[2017-04-25] MEDS: Levothyroxine 50 MCG TAB PO SCH (06:05)
[2017-04-25] MEDS: (Novolin R) Insulin Human Regular 100 units/ml vial SC SCH ×2 (07:37→13:42)
--- NOTE | 2017-04-25 09:52 | PN ---
DATE: 04/24/2017 SUBJECTIVE: The patient was seen and examined on 04/24/2017. Looking comfortable. Pain is getting little bit under control. Got dialysis. Bilateral dressing on the lower extremities. No nausea or vomiting. PHYSICAL EXAMINATION: VITAL SIGNS: Temperature 97.3, pulse 79, respiratory rate 20, blood pressure 94/56, pulse oximetry 98%. HEENT: Head is normocephalic and atraumatic. Eyes; PERRLA. Extraocular muscle intact. Conjunctiva clear. Nose patent. Mucous membrane moist. NECK: Supple. No carotid bruit. No JVD or thyromegaly. CHEST: Bilaterally symmetrical. HEART: S1 and S2 is positive. LUNGS: Clear to auscultation. ABDOMEN: Soft, bowel sounds positive. NEUROLOGIC: The patient is awake, alert, obese, follow commands. EXTREMITIES: Both lower extremities has dressing. MEDICATIONS: PhosLo, Procrit, vitamin D, Pepcid, Dilaudid, Novolin, Synthroid, multivitamin, Ambien. LABORATORY DATA: White blood cell is 12, hemoglobin 12.6, hematocrit 39.1, platelets 382. Sodium 137, potassium 5.4, BUN 55, creatinine 4.4, glucose 128. ASSESSMENT AND PLAN: The patient is an 86 years old lady with leukocytosis, hyperkalemia, renal insufficiency, hyperglycemia, status post bilateral above-knee amputation; getting analgesia dressing. Need physical therapy at bedside. No further surgical intervention planned as per surgical team. Seen by ID, Dr. Funk. The patient is afebrile and hemodynamically stable. Stumps still have charleen. The patient off antibiotics as per ID; anemia; history of gangrenous foot; waiting for subacute rehab. Monitor H and H. We will follow up.. Rosalinda Onofre MD [facility]
[2017-04-25] MEDS: Multivitamin Vitamin B Complex (Nephro-Vite) Tab PO SCH (10:11)
[2017-04-25] MEDS: HYDROmorphone 0.5 mg/0.5 ml ISec IVP PRN (10:15)
--- NOTE | 2017-04-25 13:06 | PCM.PSYCH ---
Initial Psychiatric Evaluation - Initial Psychiatric Evaluation Type of Admission: Voluntary Legal Status: Capacity Patient's Reaction to Hospitalization: cooperative History of Present Illness and Precipitating Events: Patient is an 86 year old female with PMH of anemia, DM, HTN, HLD, peripheral edema, ESRD on dialysis, sleep apnea and TIA in 1970s who is in the hospital status post bilateral above the knee amputation on 04/19/17 secondary to gangrene. Patient has been depressed in the past and 4 years ago went on an antidepressant when she had a hip replacement. She was only on the antidepressant for about a month, but the patient's daughter believed it helped. Patient has never been to a psychiatrist or had to be hospitalized for any psychiatric reasons. Patient is going to go to subacute rehab after discharge from hospital. Then patient is going to go back to her home where she lives with her and a home health aid (24 hours a day). Patient feels better today and wants to leave the hospital so she can get home. Patient has a decreased appetite since surgery. Patient denies SI/ HI. Social: denies alcohol, tobacco, drugs Current Medications: Active Medications Generic Name Dose Route Start Last Admin Trade Name Freq PRN Reason Stop Dose Admin Calcium Acetate 667 mg 04/11/17 10:00 04/25/17 10:11 Phoslo PO 667 mg DAILY [facility] Administration Epoetin Kailash 10,000 unit 04/12/17 10:00 04/24/17 16:52 Procrit IV Not Given TTS [facility] Ergocalciferol 1 cap 04/12/17 20:00 04/19/17 21:03 Drisdol 50,000 Intl Units Cap PO 1 cap Q7D [facility] Administration Famotidine 20 mg 04/19/17 10:00 04/25/17 10:11 Pepcid PO 20 mg DAILY [facility] Administration Hydromorphone HCl 0.5 mg 04/20/17 21:03 04/25/17 10:15 Dilaudid IVP 0.5 mg Q4H PRN Administration Pain, severe (8-10) Hydromorphone HCl 0.5 mg 04/21/17 14:42 04/24/17 17:42 Dilaudid IVP 0.5 mg Q6H PRN Administration Pain, moderate (4-7) Insulin Human Regular 0 unit 04/11/17 07:30 04/25/17 07:37 Novolin R SC Not Given ACHS [facility] Protocol Levothyroxine Sodium 50 mcg 04/14/17 06:30 04/25/17 06:05 Synthroid PO Not Given DAILY@0630 [facility] Vitamin B Complex/Vit C/Folic Acid 1 tab 04/11/17 08:00 04/25/17 10:11 Nephro-Nandini PO 1 tab 0800 [facility] Administration Zolpidem Tartrate 5 mg 04/11/17 01:13 Ambien PO HS PRN Insomnia Past Psychiatric History - Past Psychiatric History Previous Treatment History: None Pertinent Medical Hx (Current Medical&Sleep Prob, Allergies): Allergies Allergy/AdvReac Type Severity Reaction Status Date / Time No Known Allergies Allergy Verified 02/21/17 16:49 Calcium Acetate [Phoslo] 667 mg PO DAILY #0 capsule 12/31/15 Folic Acid/Vit B Complex and C [Alicia-Nandini Tablet] 1 tab PO DAILY 02/09/16 Zolpidem [Ambien] 5 mg PO HS 02/09/16 Ciprofloxacin [Cipro] 500 mg PO DAILY #10 tab 02/23/17 Metronidazole [Flagyl] 500 mg PO TID #30 tablet 02/23/17 oxyCODONE/Acetaminophen [Percocet 5/325 mg Tab] 1 tab PO Q6H PRN #20 tab Clopidogrel [Plavix] 75 mg PO DAILY 04/11/17 Gabapentin [Neurontin] 100 mg PO 04/11/17 Review of Systems - Psychiatric Psychiatric: Change in Appetite, Depression. absent: Homicidal Ideation, Hopelessness, Suicidal Ideation Mental Status Examination - Personal Presentation Personal Presentation: Looks stated age - Affect Affect: Broad - Motor Activity Motor Activity: Calm - Reliability in Providing Information Reliability in Providing Information: Good - Speech Speech: Organized - Mood Mood: Neutral - Formal Thought Process Formal Thought Process: No Impairment - Obsessions/Compulsions Obsessions: No Compulsions: No - Cognitive Functions Orientation: Person, Place, Situation, Time Sensorium: Alert Attention/Concentration: Attentive Abstract Thinking: [place] Estimate of Intelligence: Average Judgement: Intact, as evidence by: Insight regarding need for hospitalization Memory: Recent intact, as evidence by: Ability to recall events of the day - Risk Risk: Diminished functioning - Strength & Assets Inventory Strength & Assets Inventory: Family support DSM 5 DX - DSM 5 DSM 5 Diagnosis: Major Depressive Disorder, recurrent mild - Recommended/Plan of Treatment Treatment Recommendations and Plan of Treatment: Major Depressive Disorder, recurrent mild Start Zoloft 25mg PO daily 32min Prognosis: good with medications - Smoking Cessation Smoking Cessation Initiated: No
--- NOTE | 2017-04-25 13:24 | CP.PCM.PN ---
Subjective - Date & Time of Evaluation Date of Evaluation: 04/25/17 Time of Evaluation: 13:24 - Subjective Subjective: AFEBRILE, INTERMITTENT C/O PAIN . SEEN BY PSYCHIATRY. PLACED ON ZOLOFT. 04/25/17 oN HEMODIALYSIS TTS. S/P BILATERAL ABOVE-KNEE AMPUTATION B/L STUMPS IN THE DRESSING. DRESSING C/D/I-CYNTHIA IN PLACE. PATIENT OFF ANTIBIOTICS 04/23/17. CALLED BY RN PATIENT STILL GETTING GENTAMICIN. wILL DISCONTINUE iv GENTAMICIN TODAY NEPHROTOXIC AND OBSERVE OFF ANTIBIOTICS. lABS REVIEWED. Objective - Vital Signs/Intake and Output Vital Signs (last 24 hours): Temp Pulse Resp BP Pulse Ox 97.6 F 85 18 137/76 97 04/25/17 07:10 04/25/17 07:10 04/25/17 07:10 04/25/17 07:10 04/25/17 07:10 Intake and Output: 04/25/17 04/25/17 06:59 18:59 Intake Total 100 Output Total 0 Balance 100 - Medications Medications: Current Medications Calcium Acetate (Phoslo) 667 mg PO DAILY [facility] Last Admin: 04/25/17 10:11 Dose: 667 mg Epoetin Kailash (Procrit) 10,000 unit IV TTS [facility] Last Admin: 04/24/17 16:52 Dose: Not Given Ergocalciferol (Drisdol 50,000 Intl Units Cap) 1 cap PO Q7D [facility] Last Admin: 04/19/17 21:03 Dose: 1 cap Famotidine (Pepcid) 20 mg PO DAILY [facility] Last Admin: 04/25/17 10:11 Dose: 20 mg Hydromorphone HCl (Dilaudid) 0.5 mg IVP Q4H PRN PRN Reason: Pain, severe (8-10) Last Admin: 04/25/17 10:15 Dose: 0.5 mg Hydromorphone HCl (Dilaudid) 0.5 mg IVP Q6H PRN PRN Reason: Pain, moderate (4-7) Last Admin: 04/24/17 17:42 Dose: 0.5 mg Insulin Human Regular (Novolin R) 0 unit SC ACHS [facility] PRN Reason: Protocol Last Admin: 04/25/17 07:37 Dose: Not Given Levothyroxine Sodium (Synthroid) 50 mcg PO DAILY@0630 [facility] Last Admin: 04/25/17 06:05 Dose: Not Given Vitamin B Complex/Vit C/Folic Acid (Nephro-Nandini) 1 tab PO 0800 [facility] Last Admin: 04/25/17 10:11 Dose: 1 tab Zolpidem Tartrate (Ambien) 5 mg PO HS PRN PRN Reason: Insomnia - Labs Labs: 04/24/17 15:05 04/24/17 15:05 PT 16.5 SECONDS (9.7-12.2) H 04/19/17 06:00 INR 1.5 04/19/17 06:00 APTT 34 SECONDS (21-34) 04/19/17 13:53 - Constitutional Appears: No Acute Distress, Cachectic, Chronically Ill - Eye Exam Eye Exam: PERRL - ENT Exam ENT Exam: Normal Oropharynx - Neck Exam Neck Exam: Normal Inspection - Respiratory Exam Respiratory Exam: Clear to Ausculation Bilateral - Cardiovascular Exam Cardiovascular Exam: REGULAR RHYTHM, +S1, +S2 - GI/Abdominal Exam GI & Abdominal Exam: Soft, Normal Bowel Sounds - Extremities Exam Extremities Exam: Normal Inspection (S/P B/L AKA. CYNTHIA IN PLACE. sURGICAL INCISION OK.) - Neurological Exam Neurological Exam: Awake - Psychiatric Exam Psychiatric exam: Normal Mood - Skin Skin Exam: Warm Assessment and Plan (1) Bilateral cellulitis of lower leg Status: Acute (2) Gangrene Assessment & Plan: S/P B/L AKA. OFF ANTIBIOTICS NOW. DC IV GENTAMICIN. PATIENT FOR SUBACUTE REHABILITATION. WATCH H/H. Status: Acute (3) ESRD (end stage renal disease) on dialysis Status: Acute (4) Anemia Assessment & Plan: H/H 04/24/17 12.6/39.1 OK Status: Chronic (5) DM2 (diabetes mellitus, type 2) Status: Chronic
[2017-04-25 15:57] VITALS: BP 113/69; PULSE 86; RESP 20; TEMP 97.7; O2SAT 99
--- NOTE | 2017-04-25 16:12 | CP.PCM.PN ---
Subjective - Date & Time of Evaluation Date of Evaluation: 04/25/17 Time of Evaluation: 16:11 - Subjective Subjective: PT CLEARED FOR D/C TO [facility] TODAY BY DR. FINE, DR. TEE, DR. STANLEY, AND DR. Amrik MATAMOROS. PER DR. STANLEY PT TO F/U IN OFFICE IN 1 MONTH FOR SUTURE REMOVAL. PER DR. MATAMOROS THERE IS NO FURTHER NEED FOR IV ABX. ALL HD ARRANGEMENTS DONE BY SW. NO FURTHER ORDERS AT THIS TIME. ARRANGEMENTS FOR TRANSPORTATION DONE BY SW. FAMILY AT BEDSIDE AND IN AGREEMENT WITH PLAN. Objective - Vital Signs/Intake and Output Vital Signs (last 24 hours): Temp Pulse Resp BP Pulse Ox 97.7 F 86 20 113/69 99 04/25/17 15:56 04/25/17 15:56 04/25/17 15:56 04/25/17 15:56 04/25/17 15:56 Intake and Output: 04/25/17 04/25/17 06:59 18:59 Intake Total 100 Output Total 0 Balance 100 - Medications Medications: Current Medications Calcium Acetate (Phoslo) 667 mg PO DAILY [facility] Last Admin: 04/25/17 10:11 Dose: 667 mg Epoetin Kailash (Procrit) 10,000 unit IV TTS [facility] Last Admin: 04/24/17 16:52 Dose: Not Given Ergocalciferol (Drisdol 50,000 Intl Units Cap) 1 cap PO Q7D [facility] Last Admin: 04/19/17 21:03 Dose: 1 cap Famotidine (Pepcid) 20 mg PO DAILY [facility] Last Admin: 04/25/17 10:11 Dose: 20 mg Hydromorphone HCl (Dilaudid) 0.5 mg IVP Q4H PRN PRN Reason: Pain, severe (8-10) Last Admin: 04/25/17 10:15 Dose: 0.5 mg Hydromorphone HCl (Dilaudid) 0.5 mg IVP Q6H PRN PRN Reason: Pain, moderate (4-7) Last Admin: 04/24/17 17:42 Dose: 0.5 mg Insulin Human Regular (Novolin R) 0 unit SC ACHS [facility] PRN Reason: Protocol Last Admin: 04/25/17 13:42 Dose: Not Given Levothyroxine Sodium (Synthroid) 50 mcg PO DAILY@0630 [facility] Last Admin: 04/25/17 06:05 Dose: Not Given Vitamin B Complex/Vit C/Folic Acid (Nephro-Nandini) 1 tab PO 0800 [facility] Last Admin: 04/25/17 10:11 Dose: 1 tab Zolpidem Tartrate (Ambien) 5 mg PO HS PRN PRN Reason: Insomnia - Labs Labs: 04/24/17 15:05 04/24/17 15:05 PT 16.5 SECONDS (9.7-12.2) H 04/19/17 06:00 INR 1.5 04/19/17 06:00 APTT 34 SECONDS (21-34) 04/19/17 13:53
--- NOTE | 2017-04-25 23:32 | PN ---
SUBJECTIVE: Ms. Caldwell appears to be improving day after day. She looks very well. Her color is the best I have seen in months, talking very nicely with the daughter at the bedside with me, recognized me immediately and we were chit-chatting and she told me in her own words that the pain is very little and she is doing much better. She denies any chest pain or shortness of breath. The daughter Maribel, at the bedside, says that she is eating well. She ate very well yesterday and today and there appears to no evidence of any distress. She is getting pain medication less and less and there is no evidence of shortness of breath, chest pain, palpitations. No diarrhea, nausea, or vomiting. Rest of the review of systems otherwise negative. PHYSICAL EXAMINATION: GENERAL: Alert, oriented, much better, again the best I have seen in months. VITAL SIGNS: Totally stable and have been stable for a while. I have been coming for the last few days. Unfortunately, I did not dictate a progress note on Sunday when I came in when I saw her son here, but anyway, today, the vital signs again are totally stable. Blood pressure about 130-135/70-80, pulse regular about 80 to 75, respiratory rate is unremarkable. SKIN: The color is much better, not as pale as she had here for the last few months. She did get some blood transfusion during dialysis over the weekend. I was able to see the stump after surgery. The nurse came and changed the dressing and the wounds are nicely healing. All the charleen and sutures are still in place and probably it will remain so for several more days and removed . HEAD, EARS, NOSE, AND THROAT: Basically unremarkable. LUNGS: Remained relatively stable with minimum if at all any chronic adventitious sounds towards the right base, but no rhonchi or localized crepitations. HEART: Heart sounds normal in intensity and regular. Murmur is the same and failed to mention jugular veins are not distended today. She had dialysis yesterday. ABDOMEN: Unremarkable. EXTREMITIES: Lower extremities, the stumps surgical wound due to amputation above both knees, they are healing well. The patient remains totally stable and I was told by the nurse as well as social work msw, etc., and the daughter Maribel that she is leaving today for rehab [facility], I believe, facility in [place]. They are trying to arrange the last little issues including transportation, etc. From the cardiopulmonary view point, she appears totally stable and she is good to go. Once home after the rehab, etc., the daughter said that her brother will bring her to the office. I am sure this will take several months down the road. In the meantime, medications remain the same and no antihypertensive medications as of now. ASSESSMENT: 1. Severe atherosclerotic cardiovascular disease. 2. Recent amputation of both lower extremities above the knee due to peripheral vascular disease and gangrene. 3. Hypertensive heart disease. 4. 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 5. Diabetes mellitus, etc. I had a very long extensive conversation with her daughter Maribel and we will proceed accordingly. Denis Currie MD
--- NOTE | 2017-04-26 08:13 | PN ---
DATE: 04/23/2017 SUBJECTIVE: I saw her on Sunday at around 5:30 to 6:00 p.m. or so. The son was there. He was trying to feed her. She had received some pain medication earlier and she woke up and she did not want to eat that much, but she was actually looking better on Sunday, much better than Sunday when I saw her last. Her color was significantly better. Over the weekend, her blood pressure was in the low side, but Sunday during dialysis, she received 2 units of red blood cells as well as some albumin. Her blood pressure had gradually come up. It was around 110/65 on Sunday evening, and her pulse was regular and she looked actually much better and her color was significantly better. Her son, Christophe, was trying to feed her and he was also stressing that she appeared much, much better on Sunday. There was no evidence of any distress. She was breathing well. Son denied his mother having any issues and he asked her if there was any shortness of breath, she said no. Obviously, no chest pain. No other complaints. Rest of the review of system was negative. No diarrhea. PHYSICAL EXAMINATION: GENERAL: She appeared much better. The color was significantly improved. We could see now the difference between the linen in the bed and her skin color. Before it was almost the same. VITAL SIGNS: As mentioned above, blood pressure of 110/65, pulse regular about 80, temperature 97.3. CARDIOPULMONARY: From the cardiopulmonary viewpoint, heart sounds normal in intensity and regular. Jugular veins were nondistended. LUNGS: Relatively clear, that apart some crepitation, nothing remarkable. ABDOMEN: Unremarkable. EXTREMITIES: The leg site above the dressing appeared totally normal. LABORATORY DATA: Blood sugars were mildly elevated about 172 earlier in the day. After that, it looked fine. There was nothing spectacular. ASSESSMENT: Cardiopulmonary reyes appears stable, hypertensive heart disease, congestive heart failure, atherosclerotic heart disease , stable at this time. On Sunday evening, I had a long conservation with Christophe at the bedside and I was told him that she was basically ready to go to the subacute rehab. They were making the final arrangements and the family was trying to again looking forward to place in [facility]. Medications were reviewed and no need to put any antihypertensive medication obviously at this point in time. Denis Currie MD [facility] # [id number]
== END 2017-04-25 17:10 | DRG 239 ==
LOC: C.ER 16:06 → C.9E 21:47 → C.5T 23:16
PROVIDERS: ADMIT Internal Medicine; ATTEND Internal Medicine
PROC: 5A1D60Z (ICD-10-PCS; 2017-04-11)
PROC: 30233N1 Transfusion of Nonautologous Red Blood Cells into Peripheral Vein, Percutaneous Approach (ICD-10-PCS; 2017-04-11)
PROC: 0Y6C0Z3 Detachment at Right Upper Leg, Low, Open Approach (ICD-10-PCS; 2017-04-19)
PROC: 0Y6D0Z3 Detachment at Left Upper Leg, Low, Open Approach (ICD-10-PCS; principal; 2017-04-19 07:45)
DX: E11.52 Type 2 diabetes mellitus with diabetic peripheral angiopathy with gangrene (principal); E11.42 Type 2 diabetes mellitus with diabetic polyneuropathy; L03.115 Cellulitis of right lower limb; L03.116 Cellulitis of left lower limb; E11.621 Type 2 diabetes mellitus with foot ulcer; N18.6 End stage renal disease; I13.2 Hypertensive heart and chronic kidney disease with heart failure and with stage 5 chronic kidney disease, or end stage renal disease; E11.21 Type 2 diabetes mellitus with diabetic nephropathy; E87.8 Other disorders of electrolyte and fluid balance, not elsewhere classified; I50.42 Chronic combined systolic (congestive) and diastolic (congestive) heart failure; B87.9 Myiasis, unspecified; D63.1 Anemia in chronic kidney disease; E03.9 Hypothyroidism, unspecified; F33.0 Major depressive disorder, recurrent, mild; D72.819 Decreased white blood cell count, unspecified; E11.22 Type 2 diabetes mellitus with diabetic chronic kidney disease; E11.649 Type 2 diabetes mellitus with hypoglycemia without coma; E11.65 Type 2 diabetes mellitus with hyperglycemia; E78.00 Pure hypercholesterolemia, unspecified; E78.5 Hyperlipidemia, unspecified; E87.5 Hyperkalemia; E87.6 Hypokalemia; G47.30 Sleep apnea, unspecified; G54.6 Phantom limb syndrome with pain; H35.30 Unspecified macular degeneration; H54.42 Blindness, left eye, normal vision right eye; I25.10 Atherosclerotic heart disease of native coronary artery without angina pectoris; I44.7 Left bundle-branch block, unspecified; L97.509 Non-pressure chronic ulcer of other part of unspecified foot with unspecified severity; Z66 Do not resuscitate; Z96.641 Presence of right artificial hip joint; Z86.73 Personal history of transient ischemic attack (TIA), and cerebral infarction without residual deficits; Z79.4 Long term (current) use of insulin; Z91.19 Patient's noncompliance with other medical treatment and regimen; Z99.2 Dependence on renal dialysis